=== PATIENT | male | born 1935 | race Caucasian/White ===

== ENCOUNTER 2023-07-25 16:30 | Inpatient (IN) | payer MEDICARE, SELFPAY ==
[2023-07-25] VITALS (8 sets, daily range): BP systolic 145–184; BP diastolic 68–98; PULSE 82–102; RESP 16–22; TEMP 36.4–36.8; O2SAT 94–100
--- NOTE | ~2023-07-25 | XR_ITS ---
MODIFIED ESOPHAGRAM HISTORY: Dysphagia. TECHNIQUE: Modified barium esophagram was performed on 07/26/2023. I administered fluoroscopy and perf ormed the exam with speech pathologist. Patient was seated for lateral fluoroscopic imaging for davie stion of thin liquids, pudding, solids and quantified amounts, followed by thin liquids in uncontroll ed amounts. This was recorded on tape. 2 fluoroscopic images were also recorded. The DAP for this pro cedure was 2.832 Gycm2. The amount of fluoroscopy time used during this procedure was 2.0 minutes. FINDINGS: Oral stage: Reduced labial seal/attention. Poor posterior transit with significantly delayed triggeri ng of the swallow. Pharyngeal stage: Small amount of vallecular residue. No laryngeal penetration or aspiration. Cervical/esophageal stage: Adequate function. IMPRESSION: Oral dysphagia with poor posterior transit with significantly delayed triggering of the s wallow. Please correlate with speech pathologist findings and specific feeding recommendations. Reviewed, dictated and finalized at location A. H PRESS OPERATOR IMPRESSION: Oral dysphagia with poor posterior transit with significantly delay ed triggering of the swallow. Please correlate with speech pathologist finding s and specific feeding recommendations.
--- NOTE | ~2023-07-25 | CT_ITS ---
EXAMINATION: CT abdomen pelvis wo con DATE: 07/25/2023 21:23 INDICATION: Hematuria. TECHNIQUE: Computed tomography (CT) of the abdomen and pelvis was performed without intravenous contr ast. Automated exposure control and iterative reconstruction technique were employed. The dose-length product was 627.03 mGy-cm. COMPARISON: None. FINDINGS: The visualized portions of the lung bases demonstrate mild atelectasis. Calcified right adi g nodules and calcified right hilar lymph nodes are consistent with old adenomatous disease. No pleur al effusion. The heart size is normal. There are coronary artery calcifications. No pericardial effus ion. The liver is normal. There are gallstones in the gallbladder, which is normal in size. The splee n, pancreas, adrenal glands, and kidneys are normal. There is no urolithiasis. The prostate is severe ly enlarged. There is diverticulosis of the colon without evidence of diverticulitis. There are no di lated loops of bowel. The appendix is not visualized. Aortic atherosclerosis is noted. There are no p athologically enlarged lymph nodes. There is no free intraperitoneal fluid. There is severe thoracic and lumbar spondylosis. IMPRESSION: 1. No urolithiasis. Reviewed, dictated and finalized at location E. OMER SERVICE TECHNICIAN IMPRESSION: 1. No urolithiasis.
--- NOTE | ~2023-07-25 | CT_ITS ---
EXAMINATION: CT brain wo con DATE: 07/25/2023 19:02 INDICATION: Altered mental status. TECHNIQUE: Computed tomography (CT) of the head was performed without intravenous contrast. The mA wa s adjusted according to patient size. Iterative reconstruction technique was employed. The dose-lengt h product was 605.33 mGy-cm. COMPARISON: None FINDINGS: There is diffuse brain volume loss. There is no intracranial hemorrhage, acute infarction, or abnormal intracranial mass lesion. There are scattered areas of low attenuation in the cerebral wh ite matter. The ventricles are normal in size. There are likely changes of ocular lens replacement schneider rgeries. Partially visualized is near complete opacification of the right frontal, ethmoid, and sphen oid sinuses with sclerosis of the sinus edmondson, consistent with chronic sinusitis. There is mild mucos al thickening in right sphenoid sinus. The mastoid air cells are normal. IMPRESSION: 1. Moderate nonspecific cerebral white matter disease, which likely represents chronic small vessel i schemic disease. 2. Chronic sinusitis. Reviewed, dictated and finalized at location E. R IMPRESSION: 1. Moderate nonspecific cerebral white matter disease, which likely represents chronic small vessel ischemic disease. 2. Chronic sinusitis.
--- NOTE | ~2023-07-25 | MR_ITS ---
EXAMINATION: MR brain/brain stem wo/w con DATE: 07/26/2023 09:10 INDICATION: Altered mental status. Difficulty swallowing, speaking and walking. TECHNIQUE: Magnetic resonance imaging (MRI) of the brain and brainstem was performed without and with 15 mL Multihance intravenous contrast. Sequences included sagittal and axial T1-weighted SE, axial d iffusion-weighted FS SE, axial T2*-weighted GRE, axial T2-weighted FLAIR, and axial T2-weighted FSE. Postcontrast axial and coronal T1-weighted SE was obtained. Apparent diffusion coefficient (ADC) maps were created. COMPARISON: Head CT dated 07/25/2023 FINDINGS: There are no areas of restricted diffusion to suggest acute infarction. No intracranial hemorrhage or abnormal intracranial mass lesion. There are scattered areas of nonspecific increased T2-weighted si gnal intensity in the cerebral white matter, predominantly involving the deep and periventricular whi te matter. There are no intraparenchymal signal abnormalities seen on the other pulse sequences. Symm etric prominence of the sulci and ventricles consistent with moderate age-appropriate diffuse cerebra l volume loss. There are no abnormal extra-axial fluid collections. Flow voids are seen in the cerebr al arteries on the T2-weighted sequences consistent with their expected patency. Again seen is near c omplete filling of the right frontal, ethmoid and maxillary sinuses with thickening of the sinus wall but are evident on prior CT consistent with chronic sinusitis. Mild mucosal thickening in the right sphenoid and left ethmoid sinuses. There are no areas of abnormal enhancement on the post contrast im ages. IMPRESSION: 1. No acute intracranial process. 2. Age-related changes including moderate diffuse volume loss and moderate scattered nonspecific whit e matter T2 hyperintensity which is within normal limits for age and likely sequela of chronic small vessel ischemic disease. 3. Chronic sinusitis. Reviewed, dictated and finalized at location A. FRAME RUNNER IMPRESSION: 1. No acute intracranial process. 2. Age-related changes including moderate diffuse volume loss and moderate scat tered nonspecific white matter T2 hyperintensity which is within normal limits for age and likely sequela of chronic small vessel ischemic disease. 3. Chronic sinusitis.
--- NOTE | ~2023-07-25 | XR_ITS ---
EXAMINATION: XR chest 1V portable DATE: 07/25/2023 18:51 INDICATION: Choking on food. TECHNIQUE: A single frontal view of the chest was obtained. COMPARISON: None. FINDINGS: Calcified right lung nodules and calcified right hilar lymph nodes are consistent with old granulomatous disease. There is mild atelectasis at left lung base. No pleural effusion or pneumothor ax. Cardiomegaly is noted. IMPRESSION: 1. Mild atelectasis at left lung base. 2. Cardiomegaly. Reviewed, dictated and finalized at location E. ISH FILTERER
[2023-07-25 20:10] LABS: Basophils Absolute Auto 0.1 K/mm3 (0.0-0.1); Basophils Percent Auto 0.5 % (0.2-1.2); Eosinophils Absolute Auto 0.1 K/mm3 (0-0.3); Eosinophils Percent Auto 0.6 % (0-4.4); Hematocrit 42.2 % (42.0-52.0); Hemoglobin 13.6 g/dL (14.0-18.0); Immature Granulocyte Absolute 0.04 K/mm3 (0.00-0.031); Immature Granulocyte Percent A 0.4 % (0-0.5); Lymphocytes Absolute Auto 2.14 K/mm3 (0.9-3.2); Lymphocytes Percent Auto 19.9 % (18.3-44.2); Mean Corpuscular HGB Conc 32.2 g/dl (32-36); Mean Corpuscular Hemoglobin 31.3 pg (26-34); Mean Corpuscular Volume 97.2 fl (80-100); Mean Platelet Volume 10.9 fl (7.4-10.4); Monocytes Absolute Auto 1.3 K/mm3 (0.1-0.6); Monocytes Percent Auto 11.9 % (2.6-8.5); Neutrophils Absolute Auto 7.2 K/mm3 (1.3-6.7); Neutrophils Percent Auto 66.7 % (45.5-73.1); Platelet Count Result 256 k/mm3 (150-375); Red Blood Count 4.34 M/mm3 (4.6-6.20); Red Cell Distribution Width 12.1 % (11.5-14.5); White Blood Count 10.7 K/mm3 (4.5-10.0)
[2023-07-25 20:14] LABS: Appearance Urine Clear (Clear); Bacteria Urine None Seen /hpf; Bilirubin Urine Negative (Negative); Blood Urine 3+ (Negative); Color Urine Yellow (Yellow); Glucose Urine UA Negative (Negative); Ketones Urine Trace mg/dL (Negative); Leukocyte Esterase Ur Trace LEU/UL (Negative); Nitrate Urine Negative (Negative); Non Pathogenic Casts 0-2; Protein Urine Trace mg/dL (Negative); RBC Urine >100 /hpf (0-2); Specific Grav Ur 1.021 (1.001-1.035); Squamous Epithelial Cell Urine None seen /hpf (Few); WBC Urine 0-5 /hpf; pH Urine 5.5 (5.0-9.0)
--- NOTE | 2023-07-25 20:15 | ED.GENADULT ---
HPI - General Adult General Chief complaint: Unspecified Stated complaint: requesting gtube Time Seen by Provider: 07/25/23 17:39 Source: family Mode of arrival: ambulatory Limitations: clinical condition and dementia History of Present Illness HPI narrative: Patient is an 88-year-old male, with past medical history of dementia who presents to the ED with altered mental status, decreased p.o. intake. at bedside assisted in providing information. reports patient has history of dementia and is alert & oriented X 1-2 at baseline. since last week, patient has had a sharp decline in his physical and mental state. She states he has not been able to eat, walk, speak since last week. He was evaluated at [facility] and admitted for several days, though no etiology was found for his acute altered state. He was discharged from [place] to a assisted where he has been residing and undergoing physical therapy since then. They switched his diet to pureed diet. Today, reports patient was being fed by 1 of the assisted staff and had an episode of choking. He was then sent here for evaluation of aspiration pneumonia. It was advised by the physical therapist that patient may need a G-tube for further nutrition. Patient unable to provide any information. Related Data Allergies Allergy/AdvReac Type Severity Reaction Status Date / Time No Known Allergies Allergy Verified 07/25/23 16:21 Review of Systems Review of Systems: ROS unobtainable: Yes unobtainable due to medical condition and unobtainable due to mental status Exam Narrative: GENERAL: Elderly, chronically ill-appearing, non-toxic, in no acute distress. HEAD: Normocephalic, atraumatic. ENT: MMs and tongue very dry. Poor dentition RESPIRATORY: Airway patent, respirations borderline tachypneic. Clear to auscultation bilaterally, no rales, rhonchi, wheezing. no significant focal lung sounds. CARDIOVASCULAR: Borderline tachycardic with regular rhythm without murmurs, rubs, or gallops. ABDOMINAL: Soft, no appreciable tenderness throughout abdomen. Normoactive BS. MUSCULOSKELETAL: No gross deformities. Generalized weakness. Able to lift both arms with assistance. Unable to follow commands to lift legs. SKIN: Warm, dry, normal color. NEURO: Alert, appears to be listening to conversation but Nonverbal, does not provide any information or answer any questions. Does not follow commands. Stares around the room. Speech garbled, no useful communication. No ataxic movements. PSYCHIATRIC: No purposeful interaction. Course Vital Signs Vital signs: Vital Signs Temperature 97.6 F 07/25/23 16:15 Pulse Rate 100 07/25/23 16:15 Respiratory Rate 19 07/25/23 16:15 Blood Pressure 169/87 H 07/25/23 16:15 Pulse Oximetry 95 07/25/23 16:15 Oxygen Delivery Room Air 07/25/23 16:15 Temperature 97.6 F 07/26/23 00:07 Pulse Rate 84 07/26/23 00:07 Respiratory Rate 20 07/26/23 00:07 Blood Pressure 174/84 H 07/26/23 00:07 Pulse Oximetry 99 07/26/23 00:07 Oxygen Delivery Room Air 07/25/23 16:15 Medical Decision Making MDM Narrative Medical decision making narrative: Patient presented to ED with altered mental status, concern for choking episode assisted today, history of dementia, reporting sharp decline in condition over the last 1 week. Patient's vitals stable upon arrival. Patient unable to provide any information or voice any concerns. CT brain was obtained and showing age-related chronic small-vessel ischemic disease, no acute findings. Chest x-ray with atelectasis to the left lung base, cardiomegaly, no other acute focal consolidation noted. CBC with leukocytosis of 10.7. CMP unremarkable. Stable electrolytes, stable kidney function. Normal LFTs. Lactic acid within normal limits at 1.4. Urine obtained via straight catheterization did reveal a large blood clot. After blood clot was evacuated, uri
[2023-07-25 20:20] LABS: Add Urine Microscopic? YES; Alanine Aminotransferase 28 U/L (6-50); Albumin Level 3.6 g/dL (3.5-5.1); Alkaline Phosphatase 65 U/L (38-126); Anion Gap 8 mmol/L (8-16); Aspartate Amino Transferase 31 U/L (17-59); Bilirubin,Total 0.8 mg/dL (0.2-1.3); Blood Urea Nitrogen 33 mg/dL (9-20); Calcium 10.2 mg/dL (8.4-10.2); Carbon Dioxide 29 mmol/L (22-30); Chloride 103 mmol/L (98-107); Estimated CRCL calculation 46 ml/min; Estimated Glomerular Filt Rate > 60; Glucose 117 mg/dL (65-110); Magnesium 2.1 mg/dL (1.6-2.3); Potassium 3.6 mmol/L (3.4-5.0); Sodium 140 mmol/L (137-145)
[2023-07-25 20:21] LABS: Lactic Acid Reflex 1.4 mmol/L (0.7-2.0)
[2023-07-25] MEDS: SODIUM CHLORIDE 0.9% IV 1,000 ML 999 ML IV CONT (20:49)
--- NOTE | 2023-07-25 20:51 | ECG_ITS ---
Measurements Intervals [place] Rate: 102 P: TX: 0 QRS: -29 QRSD: 101 T: 22 QT: 354 QTc: 462 Interpretive Statements SINUS TACHYCARDIA ATRIAL AND VENTRICULAR PREMATURE COMPLEXES CONSIDER INFERIOR INFARCT, AGE INDETERMINATE BORDERLINE ST-T WAVE ABNORMALITY- ANTEROLAT/HIGH LAT LEADS BASELINE ARTIFACT- I, II, III, AVR, AVL, AVF, V1-V6 ABNORMAL ECG NO PREVIOUS ECG AVAILABLE FOR COMPARISON Electronically Signed On 07-26-2023 6:43:38 BARK PEELER by Lawrence Adam D.O.
[2023-07-25 21:27] LABS: Procalcitonin 0.1 ng/mL
[2023-07-25 21:36] LABS: Influenza A QL RT-PCR Negative (Negative); Influenza B QL RT-PCR Negative (Negative); RSV RNA, RT-PCR Negative (Negative); SARS-CoV-2 RNA PCR Negative (Negative)
[2023-07-25 21:41] LABS: Thyroid Stimulating Hormone 0.689 uIU/mL (0.465-4.680)
[2023-07-26] VITALS (8 sets, daily range): BP systolic 168–177; BP diastolic 71–94; PULSE 80–111; RESP 18–20; TEMP 36.2–37; O2SAT 90–99; BMI 32.2; BMI 33.0
--- NOTE | 2023-07-26 00:23 | ADMGEN ---
This patient, Anton Fortune, was admitted to Medical Room 244-. Patient/family oriented to hospital policies and general routines including ID bracelet, bed and alarms, visiting hours, pain management, procedures, bathroom and other care routines, personal items, smoking policy, room service/diet, and visiting hours. Information on how to activate the Rapid Response Team has been discussed. Patient/Family are encouraged to report perceived risks to care and to ask questions if they do not understand what they are told or what they should do.
--- NOTE | 2023-07-26 02:48 | PM.IMHP ---
H&P: HPI History of Present Illness Date/Time: 07/26/23 02:00 Chief Complaint: Not eating or drinking Narrative: 88-year-old male with a past medical history of dementia, glaucoma, essential hypertension BPH and GERD who presented to the ER with altered mental status and decreased oral intake. Source of information comes from ER physician report, ER records and external medication reconciliation. The family members are not at bedside in the patient is never been at our facility previously. The patient evidently has a long history of dementia but is usually able to ambulate around the house and is able to recognize left once. However last week the patient had a sharp decline in mental status and has not been able to eat walk or speak since that time. He was hospitalized at [facility] and no etiology was found for his altered mental status. However they did not do an MRI at that facility. He was subsequently discharged to snf facility reportedly for rehab. At rehab patient was again unable to eat and was placed on a pureed diet. Rehab facility thought the patient may have aspirated because he had an episode of choking with eating. He was sent to the ER for evaluation for possible pneumonia. The therapist at the nursing facility suggest patient may need a G-tube. Family still desires patient to be a full code. In the ER patient only had a small amount of urine output. He received 1 L of IV fluids. His labs were relatively unremarkable except for a BUN of 33 and trace ketones in his urine. His urine also appeared bloody during straight catheterization. CT head performed in the ER demonstrated the age-related small-vessel ischemic disease without acute findings. Chest x-ray and remainder of labs were personally reviewed and were unremarkable. Bladder scan was performed at bedside and patient only had 75 mL in his bladder. According to documentation the family did not make mention of patient having any fevers or chills at home. Review of Systems Review of Systems: ROS unobtainable: Yes unobtainable due to mental status PMFSH Past Medical History Medical History (Updated 07/26/23 @ 03:13 by Anh Rodriguez DO) Age-related macular degeneration, wet, left eye BPH (benign prostatic hyperplasia) Dementia Essential hypertension Glaucoma Hyperlipidemia Surgical History Surgical History (Updated 07/26/23 @ 02:59 by Anh Rodriguez DO) Status post cataract extraction of both eyes with insertion of intraocular lens Family History Family History Sibling Acute myocardial infarction Cerebrovascular accident Chronic obstructive pulmonary disease Mother Hypertension Acute myocardial infarction Social History Social History (Updated 07/26/23 @ 03:00 by Anh Rodriguez DO) Social History: The patient lives at home with his until recent hospitalization at [facility] early July 2023. Code status: Full code Surrogate decision maker: Smoking status: Never smoker Alcohol intake: never Substance use: never Do You Feel Safe in your Home?: Yes Lack of Transportation: No Lack of Food: Never True Current Housing: I Have Housing Concerned About Future Housing: No Difficulty Paying Gas/Electric Bills: No Difficulty Paying for Meds: No Currently Unemployed: No Education: Bachelor's Degree Difficulty w/ Childcare or Family Care: No Spiritual care concerns: No Meds Home Medications and Allergies Home Medications Medication Instructions Recorded Confirmed Type PreserVision AREDS-2 1 cap PO DAILY 07/26/23 07/26/23 History aspirin 81 mg tablet,delayed 81 mg PO DAILY 07/26/23 07/26/23 History release atorvastatin 20 mg tablet 20 mg PO DAILY 07/26/23 07/26/23 History brimonidine 0.2 %-timolol 0.5 % 1 drp ophthalmic (eye) HS 07/26/23 07/26/23 History eye drops buspirone 5 mg tablet 2
[2023-07-26] MEDS: SODIUM CHLORIDE 0.9% IV 1,000 ML 999 ML IV CONT (03:11)
[2023-07-26] MEDS: SODIUM CHLORIDE 0.9% IV 1,000 ML 125 ML IV CONT ×2 (03:11→23:00)
[2023-07-26] MEDS: METOPROLOL TARTRATE INJ 5 MG/5 ML VIAL IV PUSH ×2 (04:24→21:13)
--- NOTE | 2023-07-26 09:03 | PCSTNOTE ---
Please refer to the Modified Barium Swallow Evaluation in the EMR.
--- NOTE | 2023-07-26 11:42 | PM.IMPN ---
Progress Note: A&P Assessment and Plan (1) Altered mental status: Qualifiers: Altered mental status type: unspecified Qualified Code(s): R41.82 - Altered mental status, unspecified Code(s): R41.82 - Altered mental status, unspecified Status: Acute Assessment and Plan: MRI negative, suspect worsening Alzheimer's dementia (2) Dysphagia: Qualifiers: Dysphagia type: unspecified Qualified Code(s): R13.10 - Dysphagia, unspecified Code(s): R13.10 - Dysphagia, unspecified Status: Acute Assessment and Plan: Likely late phase dementia, family wants PEG tube, GI has been consulted and will insert tomorrow (3) Aphasia: Code(s): R47.01 - Aphasia Status: Acute Assessment and Plan: Patient not totally aphasic for me as he would answer occasional questions but was very garbled and difficult to understand, did not seem to be oriented (4) Weakness: Code(s): R53.1 - Weakness Status: Acute Assessment and Plan: Likely due to decreased nutrition and advancing dementia (5) Vascular dementia: Qualifiers: Dementia severity: severe Dementia behavioral or psychological symptom: unspecified whether behavioral, psychotic, or mood disturbance or anxiety Qualified Code(s): F01.C0 - Vascular dementia, severe, without behavioral disturbance, psychotic disturbance, mood disturbance, and anxiety Code(s): F01.50 - Vascular dementia, unspecified severity, without behavioral disturbance, psychotic disturbance, mood disturbance, and anxiety Status: Acute Assessment and Plan: Chronic small-vessel disease with volume loss noted on CT and MRI Plan PEG tube placement tomorrow by GI, consult dietitian Time Spent With Patient Time with patient: 25 - 35 minutes Subjective Date/time seen: 07/26/23 11:42 Interval history: This is an 88-year-old male patient with vascular dementia admitted for inability to eat and drink and altered mental status. Patient had been living at home until just about a week ago when he was admitted to [place] for altered LOC. No MRI was done at that time. He was transferred to SNF and was sent from there to our hospital for further evaluation. MRI done this morning shows chronic vascular changes and volume depletion. Attempted modify barium swallow and patient was able to swallow liquids without penetration but he did not swallow food that was placed in his mouth. Family wants PEG tube insertion and to return to [facility]. Review of Systems Review of Systems: ROS unobtainable: Yes unobtainable due to mental status Exam Narrative: GENERAL: Altered level of consciousness, awake but mumbling and confused HEAD: Normocephalic, atraumatic. ENT:? Mucous membranes dry. Debris from swallow study in mouth, poor dentition CHEST: Clear to auscultation.? No respiratory distress. HEART: Regular rate and irregular rhythm. ?Atrial fibrillation noted on telemetry monitoring controlled ventricular rate of 80. normal peripheral pulses. ABDOMEN: Soft, nontender, nondistended. EXTREMITIES: Normal range of motion. No peripheral edema. SKIN: Warm dry normal color NEURO: Altered LOC consistent with advanced dementia, moving all extremities PSYCH: Unable to assess Objective Data Vital Signs Vital Signs: Vital Signs - 24 hr 07/25/23 16:15 07/25/23 17:01 07/25/23 18:23 Temperature 36.4 C Pulse Rate 100 102 H Respiratory Rate 19 19 19 Blood Pressure 169/87 H 145/98 H Pulse Oximetry 95 96 95 Oxygen Delivery Room Air 07/25/23 19:13 07/25/23 19:14 07/25/23 21:06 Temperature 36.8 C Pulse Rate 102 H 102 H 95 Respiratory Rate 22 H 20 Blood Pressure 184/91 H 168/68 H Pulse Oximetry 94 99 Oxygen Delivery 07/25/23 23:03 07/25/23 23:47 07/26/23 00:07 Temperature 36.4 C Pulse Rate 98 82 84 Respiratory Rate 17 16 20 Blood Pressure 173/95 H 150/90 H 174/84 H Pu
--- NOTE | 2023-07-26 13:13 | WPDGICN ---
Assessment and Plan Assessment and plan (1) Encephalopathy acute: Code(s): G93.40 - Encephalopathy, unspecified Status: Acute Assessment and Plan: underlying dementia and failure to thrive, family is concerned and was brought to emergency they talked to primary team and I was told that agreeable to have G-tube placement for feeding (2) Vascular dementia: Qualifiers: Dementia severity: severe Dementia behavioral or psychological symptom: unspecified whether behavioral, psychotic, or mood disturbance or anxiety Qualified Code(s): F01.C0 - Vascular dementia, severe, without behavioral disturbance, psychotic disturbance, mood disturbance, and anxiety Code(s): F01.50 - Vascular dementia, unspecified severity, without behavioral disturbance, psychotic disturbance, mood disturbance, and anxiety Status: Acute (3) Dysphagia: Qualifiers: Dysphagia type: unspecified Qualified Code(s): R13.10 - Dysphagia, unspecified Code(s): R13.10 - Dysphagia, unspecified Status: Acute Assessment and Plan: egd with peg placement (4) Aphasia: Code(s): R47.01 - Aphasia Status: Acute (5) Essential hypertension: Code(s): I10 - Essential (primary) hypertension Status: Acute GI Consult Note Consult date/time: 07/26/23 13:13 Reason for consult: dysphagia, confusion/dementia HPI: Anton Fortune is a 88 year old male withl history of dementia, glaucoma, essential hypertension BPH and GERD who presented to the ER with altered mental status and decreased oral intake. I can not get history from him since he has advanced dementia per records.? He was admitted at another facility after noted sharp decline in mental status and has not been able to eat walk or speak since that time. He was subsequently discharged to snf facility reportedly for rehab.? At rehab patient was again unable to eat. MRI brain here with no acute intracranial process. Age-related changes including moderate diffuse volume loss and moderate scattered nonspecific white matter T2 hyperintensity which is within normal limits for age and likely sequela of chronic small vessel ischemic disease. He is AAOx1, he hardly makes sense when he is talking and is confused. Review of Systems Review of Systems: ROS unobtainable: Yes unobtainable due to mental status PMFSH Past Medical History Medical History (Updated 07/26/23 @ 13:18 by Leoncio Pollard MD) Age-related macular degeneration, wet, left eye BPH (benign prostatic hyperplasia) Dementia Encephalopathy acute Essential hypertension Glaucoma Hyperlipidemia Surgical History Surgical History (Updated 07/26/23 @ 02:59 by Anh Rodriguez DO) Status post cataract extraction of both eyes with insertion of intraocular lens Family History Family History Sibling Acute myocardial infarction Cerebrovascular accident Chronic obstructive pulmonary disease Mother Hypertension Acute myocardial infarction Social History Social History (Updated 07/26/23 @ 03:00 by Anh Rodriguez DO) Social History: The patient lives at home with his until recent hospitalization at [facility] early July 2023. Code status: Full code Surrogate decision maker: Smoking status: Never smoker Alcohol intake: never Substance use: never Do You Feel Safe in your Home?: Yes Lack of Transportation: No Lack of Food: Never True Current Housing: I Have Housing Concerned About Future Housing: No Difficulty Paying Gas/Electric Bills: No Difficulty Paying for Meds: No Currently Unemployed: No Education: Bachelor's Degree Difficulty w/ Childcare or Family Care: No Spiritual care concerns: No Meds Home Medications and Allergies Home Medications Medication Instructions Recorded Confirmed Type PreserVision AREDS-2 1 cap PO
--- NOTE | 2023-07-26 14:17 | PCDIET ---
Physican consult for PEG placement. Tube feeding recommendations: Jevity 1.5 at 20 ml/hr advance by 10 ml q 4 hours to goal rate of 55 ml/hr. Tube feedings at goal rate, providing 1815 kcals/82 gms protein/920 ml water. Flush 100 ml q 4 hours. Will continue to monitor.
[2023-07-26] MEDS: TIMOLOL MALEATE 0.5% OP SOLN 5 ML BOTTLE 1 DROP EACH EYE (20:48)
[2023-07-26] MEDS: BRIMONIDINE TARTRATE 0.2% OP SOLN 5 ML BTL 1 DROP EACH EYE (20:49)
[2023-07-27] VITALS (9 sets, daily range): BP systolic 129–187; BP diastolic 58–96; PULSE 72–90; RESP 17–24; TEMP 36.4–37; O2SAT 90–100
[2023-07-27] MEDS: SODIUM CHLORIDE 0.9% IV 1,000 ML 125 ML IV CONT ×2 (05:51→20:15)
[2023-07-27 05:58] LABS: Alanine Aminotransferase 31 U/L (6-50); Albumin Level 3.2 g/dL (3.5-5.1); Alkaline Phosphatase 60 U/L (38-126); Anion Gap 6 mmol/L (8-16); Aspartate Amino Transferase 36 U/L (17-59); Basophils Absolute Auto 0.1 K/mm3 (0.0-0.1); Basophils Percent Auto 0.7 % (0.2-1.2); Bilirubin,Total 0.7 mg/dL (0.2-1.3); Blood Urea Nitrogen 27 mg/dL (9-20); Calcium 9.4 mg/dL (8.4-10.2); Carbon Dioxide 25 mmol/L (22-30); Chloride 110 mmol/L (98-107); Eosinophils Absolute Auto 0.3 K/mm3 (0-0.3); Eosinophils Percent Auto 4.5 % (0-4.4); Estimated CRCL calculation 48 ml/min; Estimated Glomerular Filt Rate > 60; Glucose 96 mg/dL (65-110); Hemoglobin 12.3 g/dL (14.0-18.0); Immature Granulocyte Absolute 0.03 K/mm3 (0.00-0.031); Immature Granulocyte Percent A 0.4 % (0-0.5); Lymphocytes Absolute Auto 1.52 K/mm3 (0.9-3.2); Lymphocytes Percent Auto 20.3 % (18.3-44.2); Mean Corpuscular HGB Conc 31.5 g/dl (32-36); Mean Corpuscular Hemoglobin 31.1 pg (26-34); Mean Corpuscular Volume 98.7 fl (80-100); Mean Platelet Volume 10.8 fl (7.4-10.4); Monocytes Absolute Auto 0.8 K/mm3 (0.1-0.6); Neutrophils Absolute Auto 4.8 K/mm3 (1.3-6.7); Neutrophils Percent Auto 64.1 % (45.5-73.1); Platelet Count Result 229 k/mm3 (150-375); Potassium 3.9 mmol/L (3.4-5.0); Red Blood Count 3.95 M/mm3 (4.6-6.20); Red Cell Distribution Width 11.9 % (11.5-14.5); Sodium 141 mmol/L (137-145); White Blood Count 7.5 K/mm3 (4.5-10.0)
--- NOTE | 2023-07-27 07:59 | P.CDI_ITS ---
CDI Query Clarification Request BMI 33.0 Nutritional Diagnostic Statement Severe protein calorie malnutrition as related to inadequate protein energy intake in setting of dysphagia as evidenced by <50% of estimated energy needs for greater than or equal to 5 days and significant weight loss of 14 lbs (7%) in 7 days. Please refer to the comprehensive nutrition assessment for further information. Please clarify severity of protein calorie malnutrition if known: * Mild * Moderate * Severe * Other/Unspecified <Tammy Rodriguez RN - Last Filed: 07/27/23 08:04> Clarified Diagnosis Clarified Diagnosis: Severe protein calorie malnutrition as related to inadequate protein energy intake in setting of dysphagia as evidenced by <50% of estimated energy needs for greater than or equal to 5 days and significant weight loss of 14 lbs (7%) in 7 days. <Moises Munroe APRN - Last Filed: 07/27/23 12:39>
--- NOTE | 2023-07-27 08:17 | PM.IMPN ---
Progress Note: A&P Assessment and Plan (1) Altered mental status: Qualifiers: Altered mental status type: unspecified Qualified Code(s): R41.82 - Altered mental status, unspecified Code(s): R41.82 - Altered mental status, unspecified Status: Acute Assessment and Plan: MRI negative, suspect worsening Alzheimer's dementia (2) Dysphagia: Qualifiers: Dysphagia type: unspecified Qualified Code(s): R13.10 - Dysphagia, unspecified Code(s): R13.10 - Dysphagia, unspecified Status: Acute Assessment and Plan: Likely late phase dementia, family wants PEG tube, GI has been consulted and will insert tomorrow (3) Aphasia: Code(s): R47.01 - Aphasia Status: Acute Assessment and Plan: Patient not totally aphasic for me as he would answer occasional questions but was very garbled and difficult to understand, did not seem to be oriented (4) Weakness: Code(s): R53.1 - Weakness Status: Acute Assessment and Plan: Likely due to decreased nutrition and advancing dementia (5) Vascular dementia: Qualifiers: Dementia severity: severe Dementia behavioral or psychological symptom: unspecified whether behavioral, psychotic, or mood disturbance or anxiety Qualified Code(s): F01.C0 - Vascular dementia, severe, without behavioral disturbance, psychotic disturbance, mood disturbance, and anxiety Code(s): F01.50 - Vascular dementia, unspecified severity, without behavioral disturbance, psychotic disturbance, mood disturbance, and anxiety Status: Acute Assessment and Plan: Chronic small-vessel disease with volume loss noted on CT and MRI (6) Severe protein-calorie malnutrition: Code(s): E43 - Unspecified severe protein-calorie malnutrition Status: Acute Assessment and Plan: Severe protein calorie malnutrition as related to inadequate protein energy intake in setting of dysphagia as evidenced by <50% of estimated energy needs for greater than or equal to 5 days and significant weight loss of 14 lbs (7%) in 7 days. Plan PEG tube placement today Follow recreation engineer plan for tube feeds Time Spent With Patient Time with patient: 25 - 35 minutes Subjective Date/time seen: 07/27/23 08:17 Interval history: 07/26: This is an 88-year-old male patient with vascular dementia admitted for inability to eat and drink and altered mental status. Patient had been living at home until just about a week ago when he was admitted to [facility] for altered LOC. No MRI was done at that time. He was transferred to SNF and was sent from there to our hospital for further evaluation. MRI done this morning shows chronic vascular changes and volume depletion. Attempted modify barium swallow and patient was able to swallow liquids without penetration but he did not swallow food that was placed in his mouth. Family wants PEG tube insertion and to return to [facility]. 07/27: No change in mental status. No acute events overnight. IV fluid rate decreased to 75 mL/hr to prevent fluid overload. Patient going down for PEG tube placement today. Once cleared to use PEG to we will start tube feeds as recommended by dietitian. Once at goal we will stop IV fluids. Review of Systems Review of Systems: ROS unobtainable: Yes unobtainable due to mental status Exam Narrative: GENERAL: Altered level of consciousness, awake but mumbling and confused HEAD: Normocephalic, atraumatic. ENT:? Mucous membranes dry. Debris from swallow study in mouth, poor dentition CHEST: Clear to auscultation.? No respiratory distress. HEART: Regular rate and irregular rhythm. ?Atrial fibrillation noted on telemetry monitoring controlled ventricular rate of 80. normal peripheral pulses. ABDOMEN: Soft, nontender, nondistended. EXTREMITIES: Normal range of motion. No peripheral edema. SKIN: Warm dry normal color NEURO: Altered LOC consistent
--- NOTE | 2023-07-27 09:20 | PC.NURSE ---
pt to GI lab via tracey
[2023-07-27] MEDS: LACTATED RINGERS 1,000 ML 150 ML IV CONT (09:38)
[2023-07-27] MEDS: ceFAZolin 1 GM/NS 50 ML 1 GM/50 ML BAG IVPB (09:39)
--- NOTE | 2023-07-27 10:07 | WPDANESEPPF ---
Anes - Initial Pre Proc Eval Procedure: Operation Date: 07/27/23 13:00 Proposed Procedures p Esophagogastroduodenoscopy - Leoncio Pollard MD s Percutaneous Endoscopic Gastrostomy - Leoncio Pollard MD Date/Time: 07/27/23 10:07 Surgeon: Anh Rodriguez DO Pre Op Diagnosis: AMS, Dementia, Difficulty with PO Intake Patient Data Age: 88 Gender: M Height: 1.57 m Weight: 83.6 kg Last Vital Signs Temp 97.9 F 07/27/23 09:36 Pulse 77 07/27/23 09:36 Resp 20 07/27/23 09:36 BP 161/74 H 07/27/23 09:36 Pulse Ox 96 07/27/23 09:36 O2 Del Method Room Air 07/27/23 09:36 Allergies Allergy/AdvReac Type Severity Reaction Status Date / Time No Known Allergies Allergy Verified 07/27/23 09:35 Home Medications Medication Instructions Recorded Confirmed Type PreserVision AREDS-2 1 cap PO DAILY 07/26/23 07/26/23 History aspirin 81 mg tablet,delayed 81 mg PO DAILY 07/26/23 07/26/23 History release atorvastatin 20 mg tablet 20 mg PO DAILY 07/26/23 07/26/23 History brimonidine 0.2 %-timolol 0.5 % 1 drp ophthalmic (eye) HS 07/26/23 07/26/23 History eye drops buspirone 5 mg tablet 2.5 mg PO BID 07/26/23 07/26/23 History chlorthalidone 25 mg tablet 25 mg PO DAILY 07/26/23 07/26/23 History famotidine 10 mg tablet 10 mg PO DAILY 07/26/23 07/26/23 History lycopene 10 mg capsule 10 mg PO DAILY 07/26/23 07/26/23 History metoprolol succinate 50 mg 50 mg PO DAILY 07/26/23 07/26/23 History tablet,extended release 24 hr potassium chloride 20 mEq 20 meq PO DAILY 07/26/23 07/26/23 History tablet,extended release(part/cryst) (Klor-Con M) quetiapine 25 mg tablet 25 mg PO HS PRN Sleep 07/26/23 07/26/23 History tamsulosin 0.4 mg capsule 0.4 mg PO DAILY 07/26/23 07/26/23 History Laboratory Tests 07/27/23 05:19 WBC 7.5 K/mm3 (4.5-10.0) RBC 3.95 L M/mm3 (4.6-6.20) Hgb 12.3 L g/dL (14.0-18.0) Hct 39.0 L % (42.0-52.0) MCV 98.7 fl (80-100) MCH 31.1 pg (26-34) MCHC 31.5 L g/dl (32-36) RDW 11.9 % (11.5-14.5) Plt Count 229 k/mm3 (150-375) MPV 10.8 H fl (7.4-10.4) Immature Gran % (Auto) 0.4 % (0-0.5) Neut % (Auto) 64.1 % (45.5-73.1) Lymph % (Auto) 20.3 % (18.3-44.2) Faulkner % (Auto) 10.0 H % (2.6-8.5) Eos % (Auto) 4.5 H % (0-4.4) Baso % (Auto) 0.7 % (0.2-1.2) Lymph # (Auto) 1.52 K/mm3 (0.9-3.2) Faulkner # (Auto) 0.8 H K/mm3 (0.1-0.6) Eos # (Auto) 0.3 K/mm3 (0-0.3) Baso # (Auto) 0.1 K/mm3 (0.0-0.1) Abs Immat Gran (auto) 0.03 K/mm3 (0.00-0.031) Absolute Neuts (auto) 4.8 K/mm3 (1.3-6.7) Absolute Nucleated RBC 0.0 K/mm3 (0.0-0.012) Nucleated RBC % 0.0 % (0.0-0.2) Sodium 141 mmol/L (137-145) Potassium 3.9 mmol/L (3.4-5.0) Chloride 110 H mmol/L (98-107) Carbon Dioxide 25 mmol/L (22-30) Anion Gap 6 L mmol/L (8-16) BUN 27 H mg/dL (9-20) Creatinine 0.90 mg/dL (0.7-1.3) Estim Creat Clear Calc 48 ml/min Estimated GFR > 60 (59 - ) Glucose 96 mg/dL (65-110) Calcium 9.4 mg/dL (8.4-10.2) Magnesium 2.0 mg/dL (1.6-2.3) Total Bilirubin 0.7 mg/dL (0.2-1.3) AST 36 U/L (17-59) ALT 31 U/L (6-50) Alkaline Phosphatase 60 U/L (38-126) Total Protein 6.0 L g/dL (6.3-8.2) Albumin 3.2 L g/dL (3.5-5.1) Patient hx anesthesia problems: none Family hx anesthesia problems: none Results Review: All pre-operative results and documents have been reviewed as part of the pre-operative evaluation. [facility] Past Medical History Medical History (Updated 07/26/23 @ 13:18 by Leoncio Pollard MD) Age-related macular degeneration, wet, left eye BPH (benign prostatic hyperplasia) Dementia Encephalopathy acute Essential hypertension Glaucoma Hyperlipidemia Surgical History Surgical History (Updated 07/26/23 @ 02:59 by Anh Rodriguez DO) Status post ca
[2023-07-27] MEDS: METOPROLOL TARTRATE INJ 5 MG/5 ML VIAL IV PUSH (20:08)
[2023-07-27] MEDS: TIMOLOL MALEATE 0.5% OP SOLN 5 ML BOTTLE 1 DROP EACH EYE (20:09)
[2023-07-27] MEDS: BRIMONIDINE TARTRATE 0.2% OP SOLN 5 ML BTL 1 DROP EACH EYE (20:09)
[2023-07-28 05:56] VITALS: BP 130/70; PULSE 64; RESP 17; TEMP 36.8; O2SAT 97
[2023-07-28 06:18] LABS: Basophils Percent Auto 0.4 % (0.2-1.2); Eosinophils Absolute Auto 0.3 K/mm3 (0-0.3); Eosinophils Percent Auto 4.2 % (0-4.4); Hematocrit 36.1 % (42.0-52.0); Immature Granulocyte Absolute 0.03 K/mm3 (0.00-0.031); Immature Granulocyte Percent A 0.4 % (0-0.5); Lymphocytes Absolute Auto 1.62 K/mm3 (0.9-3.2); Lymphocytes Percent Auto 19.9 % (18.3-44.2); Mean Corpuscular HGB Conc 33.2 g/dl (32-36); Mean Corpuscular Hemoglobin 31.6 pg (26-34); Mean Platelet Volume 10.3 fl (7.4-10.4); Monocytes Absolute Auto 0.9 K/mm3 (0.1-0.6); Monocytes Percent Auto 11.6 % (2.6-8.5); Neutrophils Absolute Auto 5.2 K/mm3 (1.3-6.7); Neutrophils Percent Auto 63.5 % (45.5-73.1); Platelet Count Result 239 k/mm3 (150-375); Red Cell Distribution Width 11.9 % (11.5-14.5); White Blood Count 8.1 K/mm3 (4.5-10.0)
[2023-07-28 07:13] LABS: Alanine Aminotransferase 24 U/L (6-50); Albumin Level 2.8 g/dL (3.5-5.1); Alkaline Phosphatase 65 U/L (38-126); Anion Gap 3 mmol/L (8-16); Aspartate Amino Transferase 26 U/L (17-59); Bilirubin,Total 0.5 mg/dL (0.2-1.3); Blood Urea Nitrogen 26 mg/dL (9-20); Calcium 9.3 mg/dL (8.4-10.2); Carbon Dioxide 29 mmol/L (22-30); Chloride 107 mmol/L (98-107); Estimated CRCL calculation 48 ml/min; Estimated Glomerular Filt Rate > 60; Glucose 125 mg/dL (65-110); Potassium 3.5 mmol/L (3.4-5.0); Sodium 139 mmol/L (137-145)
[2023-07-28] MEDS: PANTOPRAZOLE SODIUM IV 40 MG VIAL IV PUSH (08:46)
--- NOTE | 2023-07-28 11:35 | PM.DS ---
DS: Admitting Diagnosis Discharge Date 07/28/2023 Admitting Diagnosis AMS/Dysphagia DS: Discharge Diagnosis Discharge Diagnosis (1) Altered mental status: Qualifiers: Altered mental status type: unspecified Qualified Code(s): R41.82 - Altered mental status, unspecified Code(s): R41.82 - Altered mental status, unspecified Status: Acute Assessment and Plan: MRI negative, suspect worsening Alzheimer's dementia (2) Dysphagia: Qualifiers: Dysphagia type: unspecified Qualified Code(s): R13.10 - Dysphagia, unspecified Code(s): R13.10 - Dysphagia, unspecified Status: Acute Assessment and Plan: Likely late phase dementia, family wants PEG tube, GI has been consulted and will insert tomorrow (3) Aphasia: Code(s): R47.01 - Aphasia Status: Acute Assessment and Plan: Patient not totally aphasic for me as he would answer occasional questions but was very garbled and difficult to understand, did not seem to be oriented (4) Weakness: Code(s): R53.1 - Weakness Status: Acute Assessment and Plan: Likely due to decreased nutrition and advancing dementia (5) Vascular dementia: Qualifiers: Dementia severity: severe Dementia behavioral or psychological symptom: unspecified whether behavioral, psychotic, or mood disturbance or anxiety Qualified Code(s): F01.C0 - Vascular dementia, severe, without behavioral disturbance, psychotic disturbance, mood disturbance, and anxiety Code(s): F01.50 - Vascular dementia, unspecified severity, without behavioral disturbance, psychotic disturbance, mood disturbance, and anxiety Status: Acute Assessment and Plan: Chronic small-vessel disease with volume loss noted on CT and MRI (6) Severe protein-calorie malnutrition: Code(s): E43 - Unspecified severe protein-calorie malnutrition Status: Acute Assessment and Plan: Severe protein calorie malnutrition as related to inadequate protein energy intake in setting of dysphagia as evidenced by <50% of estimated energy needs for greater than or equal to 5 days and significant weight loss of 14 lbs (7%) in 7 days. Plan Dysphagia -peg tube with tube feedings -aspiration precautions -monitor residuals -Follow-up BMP NA levels adjust tube feed flushes as needed -Peg Tube care DS: Summary Hospital Course Reason for hospitalization: AMS/Dysphagia Hospital Course: 88-year-old male who has a past medical history of dementia, glaucoma, essential hypertension BPH and GERD who presented to the ER with altered mental status and decreased oral intake.? Source of information comes from ER physician report, ER records and external medication reconciliation.? The family members are not at bedside in the patient is never been at our facility previously.? The patient evidently has a long history of dementia but is usually able to ambulate around the house and is able to recognize left once.? However last week the patient had a sharp decline in mental status and has not been able to eat walk or speak since that time.? He was hospitalized at [facility], [place] and no etiology was found for his altered mental status.? However they did not do an MRI at that facility.? [facility].? At rehab patient was again unable to eat and was placed on a pureed diet.? Rehab facility thought the patient may have aspirated because he had an episode of choking with eating.? He was sent to the ER for evaluation for possible pneumonia.? The therapist at the nursing facility suggest patient may need a G-tube.? Family still desires patient to be a full code.? In the ER patient only had a small amount of urine output.? He received 1 L of IV fluids.? His labs were relatively unremarkable except for a BUN of 33 and trace ketones in his urine.? His urine also appeared bloody during straight teddy
--- NOTE | 2023-07-28 11:40 | PC.NURSE ---
On 07/28/23, the student, [Fanny Perkins], provided care and completed [facility] documentation on this patient. I have reviewed the student's documentation and agree with the findings.
[2023-07-28 14:00] VITALS: BP 174/74; PULSE 84; RESP 17; TEMP 36.6; O2SAT 98
--- NOTE | 2023-07-28 15:59 | WPDGIPROGNO ---
Progress Note: A&P Assessment and Plan (1) Dysphagia: Qualifiers: Dysphagia type: unspecified Qualified Code(s): R13.10 - Dysphagia, unspecified Code(s): R13.10 - Dysphagia, unspecified Status: Acute Assessment and Plan: he is tolerating tube feeding at goal discharge soon per primary keep abdominal binder in place (2) Encephalopathy acute: Code(s): G93.40 - Encephalopathy, unspecified Status: Acute (3) Severe protein-calorie malnutrition: Code(s): E43 - Unspecified severe protein-calorie malnutrition Status: Acute Assessment and Plan: started on tube feeding (4) Altered mental status: Qualifiers: Altered mental status type: unspecified Qualified Code(s): R41.82 - Altered mental status, unspecified Code(s): R41.82 - Altered mental status, unspecified Status: Acute (5) Vascular dementia: Qualifiers: Dementia severity: severe Dementia behavioral or psychological symptom: unspecified whether behavioral, psychotic, or mood disturbance or anxiety Qualified Code(s): F01.C0 - Vascular dementia, severe, without behavioral disturbance, psychotic disturbance, mood disturbance, and anxiety Code(s): F01.50 - Vascular dementia, unspecified severity, without behavioral disturbance, psychotic disturbance, mood disturbance, and anxiety Status: Acute Assessment and Plan: advanced and needs total care Subjective Date/time seen: 07/28/23 15:59 Interval history: peg placement yesterday, tolerating tube feeding at goal 55 ml/h and plan is to discharge soon Review of Systems Review of Systems: All systems reviewed & are unremarkable except as noted in HPI and below Exam Const: Other: awake but mumbling and confused HENMT: Face/Nose/Sinus: Normal nares present Eyes: Sclera: sclerae normal Neck: Neck: supple Resp: Effort & Inspection: normal respiratory effort Cardio: Rhythm: regular rhythm GI: GI Palp: Yes Soft to palpation Auscultation: normal bowel sounds Other: g-tube in position Skin: General skin exam: normal color Neuro: Other: confused, abnormal speech Extrem: General: normal to inspection Psych: Other: confused Objective Data Vital Signs Vital Signs: Vital Signs - 24 hr 07/27/23 20:05 07/27/23 20:08 07/27/23 20:22 Temperature 98.6 F Pulse Rate 90 90 Respiratory Rate 17 Blood Pressure 187/86 H 187/96 H Pulse Oximetry 98 Oxygen Delivery 07/27/23 20:00 07/27/23 21:12 07/28/23 05:56 Temperature 98.3 F Pulse Rate 64 Respiratory Rate 17 Blood Pressure 164/92 H 130/70 Pulse Oximetry 97 Oxygen Delivery Room Air 07/28/23 08:00 07/28/23 14:00 Temperature 97.8 F Pulse Rate 84 Respiratory Rate 17 Blood Pressure 174/74 H Pulse Oximetry 98 Oxygen Delivery Room Air Intake/Output Intake/Output: Intake & Output 07/25/23 07/26/23 07/27/23 07/28/23 23:59 23:59 23:59 23:59 Intake Total 1000 2000 2300 740 Output Total 227 795 5463 50 Balance 900 1800 1200 690 Meds/Results Medications: Active Medications Generic Name Dose Route Start Last Admin Trade Name Freq PRN Reason Stop Dose Admin Brimonidine Tartrate 1 drop 07/26/23 21:00 07/27/23 20:09 Brimonidine Tartrate 0.2% Op Soln 5 Ml Btl EACH EYE 1 drop HS MAGEN Administration Metoprolol Tartrate 5 mg 07/26/23 02:54 07/27/23 20:08 Metoprolol Tartrate Inj 5 Mg/5 Ml Vial IV PUSH 5 mg Q6H PRN Administration SBP greater than 160 Pantoprazole Sodium 40 mg 07/28/23 09:00 Pantoprazole 40 Mg Tablet PO QAM MAGEN Pantoprazole Sodium 40 mg 07/28/23 09:00 07/28/23 08:46 Pantoprazole Sodium Iv 40 Mg Vial IV PUSH 40 mg QAM MAGEN Administration Timolol Maleate 1 drop 07/26/23 21:00 07/27/23 20:09 Timolol Maleate 0.5% Op Soln 5 Ml Bottle EACH EYE 1 drop HS MAGEN Administration Radiology Results: ITS I
== END 2023-07-28 18:29 | DRG 56 ==
LOC: ANHED 18:00 → ANH2MED 23:41
PROVIDERS: Internal Medicine Gastroenterology; Nurse Practitioner; Admitting Provider Internal Medicine; Emergency Provider Physician Assistant; PCP Internal Medicine; Visit Provider Nurse Practitioner Family
PROC: 0DJ08ZZ Inspection of Upper Intestinal Tract, Via Natural or Artificial Opening Endoscopic (ICD-10-PCS; CPT 43235; principal; 2023-07-27 13:00)
PROC: 0DH63UZ Insertion of Feeding Device into Stomach, Percutaneous Approach (ICD-10-PCS; CPT 43246; 2023-07-27 13:00)
DX: G30.9 Alzheimer's disease, unspecified (principal); E43 Unspecified severe protein-calorie malnutrition; F02.818 Dementia in other diseases classified elsewhere, unspecified severity, with other behavioral disturbance; R47.01 Aphasia; G32.89 Other specified degenerative disorders of nervous system in diseases classified elsewhere; Z20.822 Contact with and (suspected) exposure to COVID-19; E86.0 Dehydration; R13.19 Other dysphagia; R62.7 Adult failure to thrive; I10 Essential (primary) hypertension; H40.9 Unspecified glaucoma; K29.80 Duodenitis without bleeding; N40.0 Benign prostatic hyperplasia without lower urinary tract symptoms; Z96.1 Presence of intraocular lens; Z98.42 Cataract extraction status, left eye; Z98.41 Cataract extraction status, right eye; Z68.33 Body mass index [BMI] 33.0-33.9, adult; Z99.3 Dependence on wheelchair
CPT/HCPCS: 36415; 43246; 70450; 70553; 71045; 74176; 80053; 81001; 83605; 83735; 84145; 84443; 85025; 87637; 92523; 92611; 93005; 96361; 96374; 99285; A9270; A9577; C9113; G0378; J0690; J2704; J7030; J7120

== ENCOUNTER 2023-08-16 16:15 | Inpatient (IN) | payer MEDICARE, SELFPAY ==
[2023-08-16] VITALS (25 sets, daily range): BP systolic 122–210; BP diastolic 73–120; PULSE 108–140; RESP 12–38; TEMP 37.8–38.6; O2SAT 92–100
--- NOTE | ~2023-08-16 | CT_ITS ---
EXAMINATION: CT chest abdomen pelvis w con DATE: 08/16/2023 19:13 INDICATION: Shortness of breath and sepsis. Suspected pneumonia. Abdominal tenderness. TECHNIQUE: Computed tomography (CT) of the chest, abdomen, and pelvis was performed with 100 mL Omnip aque-350 intravenous contrast. Automated exposure control and iterative reconstruction technique were employed. The dose-length product was 1424.07 mGy-cm. COMPARISON: CT dated 07/25/2023 FINDINGS: CHEST CT: Patchy consolidation and groundglass opacities in the basilar segments of the bilateral lower lobes c onsistent with pneumonia. There is additional bandlike discoid atelectasis at the lingula and right l ower lobe. Borderline heart size. Atherosclerotic coronary artery calcification. No pericardial or pl eural effusion. Thoracic aorta is normal in caliber with no dissection. Calcified right lower lobe no dule and calcified right hilar and mediastinal lymph nodes consistent with old granulomatous disease. Severe lower thoracic and moderate to severe thoracic spondylosis. ABDOMEN/PELVIS CT: Percutaneous gastrostomy tube bulb within the distal body of the stomach. Multiple tiny gallstones la yering along the dependent wall of the normal-appearing gallbladder. Liver is normal. No intra or ext rahepatic biliary ductal dilation. Pancreas, spleen, bilateral adrenal glands and kidneys are normal. There is mild to moderate diverticulosis along the descending and sigmoid colon without adjacent inf lammatory change to suggest diverticulitis. Small bowel and appendix are normal. Prostatomegaly measu ring 6.6 x 5.6 cm. There is a 2.2 x 1.8 x 1.7 cm heterogeneously enhancing intraluminal nodule at the base of the bladder which could represent either a bladder neoplasm or exophytic nodule arising from the prostate. No free intraperitoneal gas or fluid. No pathologically enlarged abdominal or pelvic l ymphadenopathy. Severe lumbar spondylosis. IMPRESSION: 1. Patchy lung disease in the basilar segments of the bilateral lower lobes consistent with pneumonia . 2. Cholelithiasis. 3. Mild to moderate diverticulosis. 4. Prostatomegaly. 5. 2.2 cm intraluminal nodule at the base of bladder could represent exophytic nodular extension of t he prostate versus urothelial carcinoma. Correlate with urinalysis and consider cystoscopy for furthe r evaluation. Reviewed, dictated and finalized at location A. ERCIAL TITLE EXAMINER IMPRESSION: 1. Patchy lung disease in the basilar segments of the bilateral lower lobes con sistent with pneumonia. 2. Cholelithiasis. 3. Mild to moderate diverticulosis. 4. Prostatomegaly. 5. 2.2 cm intraluminal nodule at the base of bladder could represent exophytic nodular extension of the prostate versus urothelial carcinoma. Correlate with u rinalysis and consider cystoscopy for further evaluation.
--- NOTE | ~2023-08-16 | XR_ITS ---
EXAMINATION: XR chest 1V DATE: 08/16/2023 18:59 INDICATION: Suspected pneumonia. TECHNIQUE: frontal view of the chest was obtained. COMPARISON: Chest radiograph dated 07/25/2023 FINDINGS: Oblique bandlike discoid atelectasis in the right lower lung zone. Opacities in the left lower lung z one and more subtle opacities project over the right hemidiaphragm with suggestion of some air bronch ograms which could represent additional atelectasis or pneumonia. No pleural effusion or pneumothorax . The cardiomediastinal silhouette is normal. IMPRESSION: 1. Opacities in bilateral lower lung zones which could represent atelectasis and/or pneumonia. Reviewed, dictated and finalized at location A. AL DEPARTMENT SPECIALIST IMPRESSION: 1. Opacities in bilateral lower lung zones which could represent atelectasis an d/or pneumonia.
--- NOTE | ~2023-08-16 | XR_ITS ---
EXAMINATION: XR chest 1V portable INDICATION: Respiratory failure TECHNIQUE: Portable AP chest at 1040 hours COMPARISON: 08/22/2023 FINDINGS: A left upper extremity PICC ends with its tip in the midsuperior vena cava. The endotrachea l tube has been removed. Bibasilar airspace opacities persist without significant change. No pleural effusion or pneumothorax. The cardiomediastinal silhouette is stable. IMPRESSION: 1. Stable bibasilar airspace opacities, consistent with atelectasis versus pneumonia. 2. Extubation. Reviewed, dictated and finalized at location B. MOTIVE SERVICE CONSULTANT IMPRESSION: 1. Stable bibasilar airspace opacities, consistent with atelectasis versus pneu monia. 2. Extubation.
--- NOTE | ~2023-08-16 | XR_ITS ---
Portable chest x-ray Comparison: 08/18/2023 Clinical History: Respiratory failure Findings: Endotracheal tube and NG tube remain in place. There is mild central congestive change and probable minimal pulmonary edema. Cardiomediastinal silhouette is stable. Bones and soft tissues ar e unremarkable. Impression: Central congestive change and probable minimal pulmonary edema. Support tubes, as above. Reviewed, dictated and finalized at location . EMATICS DEPARTMENT CHAIR Impression: Central congestive change and probable minimal pulmonary edema. Support tubes, as above.
--- NOTE | ~2023-08-16 | XR_ITS ---
EXAMINATION: XR chest ET placement, XR abdomen gastric tube insert DATE: 08/16/2023 20:12 INDICATION: Post endotracheal tube pacemaker and nasogastric tube placement. TECHNIQUE: 1. Frontal view of the chest was obtained. 2. Frontal view of the abdomen was obtained. COMPARISON: CT chest, abdomen and pelvis dated 08/16/2023 FINDINGS: Chest: Endotracheal tube tip 1.1 cm above the jonathon. Airspace opacities in bilateral lower lung zones consi stent with combination of atelectasis and pneumonia. No pleural effusion or pneumothorax. Borderline heart size. Abdomen: Nasogastric tube tip in proximal side port in the proximal body the stomach. There is also a percutan eous gastrostomy tube in the mid body of the stomach. No dilated loops of gas-filled bowel in the vis ualized abdomen. There are some excreted contrast in both renal collecting systems and along the left ureter resulting from the earlier contrast-enhanced CT . Severe lumbar and lower thoracic spondylosi s. IMPRESSION: 1. Endotracheal tube and nasogastric tube in expected positions. 2. Airspace opacities in bilateral lower lung zones with appearance on prior CT consistent with combi nation of atelectasis and pneumonia. Reviewed, dictated and finalized at location A. FRAMER MACHINE IMPRESSION: 1. Endotracheal tube and nasogastric tube in expected positions. 2. Airspace opacities in bilateral lower lung zones with appearance on prior CT consistent with combination of atelectasis and pneumonia.
--- NOTE | ~2023-08-16 | XR_ITS ---
EXAMINATION: XR chest 1V portable DATE: 08/19/2023 11:15 INDICATION: PICC line placement TECHNIQUE: frontal view of the chest was obtained. COMPARISON: Chest radiograph dated 08/19/2013 at 5:38 AM FINDINGS: Newly placed left upper extremity peripherally inserted central venous catheter (PICC) tip at the schneider perior cavoatrial junction. Endotracheal tube tip 2.1 cm above the jonathon. Nasogastric tube tip in p roximal side port in the stomach. Persistent opacities in bilateral lower lung zones which could represent atelectasis and/or pneumonia . Blunting at the right costophrenic angle consistent with small right pleural effusion. The cardiome diastinal silhouette is normal. IMPRESSION: 1. Right PICC line tip at the superior cavoatrial junction. 2. Unchanged opacities in bilateral lower lung zones consistent with atelectasis and/or pneumonia jose ng with likely small right pleural effusion. Reviewed, dictated and finalized at location A. DEVELOPER PROGRAMMER IMPRESSION: 1. Right PICC line tip at the superior cavoatrial junction. 2. Unchanged opacities in bilateral lower lung zones consistent with atelectasi s and/or pneumonia along with likely small right pleural effusion.
--- NOTE | ~2023-08-16 | XR_ITS ---
Portable chest x-ray Comparison: 08/16/2023 Clinical History: Respiratory failure Findings: Endotracheal tube and NG tube are in place. Probable minimal pleural effusions with mild p ulmonary edema pattern. Cardiomediastinal silhouette is stable. Bones and soft tissues are unremarka ble. Impression: Minimal pleural effusions and mild pulmonary edema pattern. Support tubes, as above. Reviewed, dictated and finalized at location . FOURTH Impression: Minimal pleural effusions and mild pulmonary edema pattern. Support tubes, as above.
--- NOTE | ~2023-08-16 | XR_ITS ---
EXAMINATION: XR chest 1V portable DATE: 08/21/2023 05:47 INDICATION: Respiratory failure TECHNIQUE: frontal view of the chest was obtained. COMPARISON: Chest radiograph dated 08/20/2023 FINDINGS: Endotracheal tube tip 3.0 cm above the jonathon. Nasogastric tube tip in the body the stomach. Proximal side-port is at the level of the gastroesophageal junction. Left upper extremity peripherally insert ed central venous catheter (PICC) tip at the mid superior vena cava. Persistent opacities in bilateral lower lung zones some which demonstrates linear bandlike configurat ion consistent with atelectasis although associated pneumonia not excludable. No pulmonary edema, pne umothorax or definitive pleural effusion. The cardiomediastinal silhouette is normal. IMPRESSION: 1. No significant change in opacities in the bilateral lower lung zones consistent with atelectasis, potentially with superimposed pneumonia. 2. Nasogastric tube tip in the stomach but proximal side-port at the level of the gastroesophageal ju nction and would recommend advancement by 5 cm. Reviewed, dictated and finalized at location A. ING MACHINE OPERATOR IMPRESSION: 1. No significant change in opacities in the bilateral lower lung zones consist ent with atelectasis, potentially with superimposed pneumonia. 2. Nasogastric tube tip in the stomach but proximal side-port at the level of t he gastroesophageal junction and would recommend advancement by 5 cm.
--- NOTE | ~2023-08-16 | XR_ITS ---
EXAMINATION: XR chest 1V portable INDICATION: Pneumonia TECHNIQUE: Portable AP chest at 0956 hours COMPARISON: 08/24/2023 FINDINGS: The left upper extremity PICC ends with its tip in the midsuperior vena cava. There are per sistent but improved airspace opacities of the lung bases. No pleural effusion or pneumothorax. The c ardiomediastinal silhouette is stable. IMPRESSION: 1. Persistent but improving bibasilar airspace opacities, consistent with atelectasis versus pneumoni a. Reviewed, dictated and finalized at location L. MITER IMPRESSION: 1. Persistent but improving bibasilar airspace opacities, consistent with atele ctasis versus pneumonia.
--- NOTE | ~2023-08-16 | XR_ITS ---
Portable chest x-ray Comparison: 08/21/2023 Clinical History: Respiratory failure Findings: Endotracheal tube and left-sided PICC line are in place. There is bibasilar atelectasis or scarring. Cardiomediastinal silhouette is stable. Bones and soft tissues are unremarkable. Impression: Support tubes, as above. Probable bibasilar atelectatic change. Reviewed, dictated and finalized at location . NESS MACHINE OPERATOR Impression: Support tubes, as above. Probable bibasilar atelectatic change.
--- NOTE | ~2023-08-16 | XR_ITS ---
EXAMINATION: XR chest 1V portable DATE: 08/20/2023 05:55 INDICATION: Respiratory failure TECHNIQUE: frontal view of the chest was obtained. COMPARISON: Chest radiograph dated 08/19/2023 FINDINGS: Endotracheal tube tip 3.1 cm above the jonathon. Nasogastric tube extends below the left hemidiaphragm with distal tip collimated off the study. Left upper extremity peripherally inserted central venous catheter (PICC) tip at the caudal superior vena cava. There are some persistent airspace opacities in bilateral lower lung zones. No pneumothorax or defini tive pleural effusion. The cardiomediastinal silhouette is normal. IMPRESSION: 1. No significant change in opacities in the bilateral lower lung zones consistent with atelectasis a nd/or pneumonia. Reviewed, dictated and finalized at location A. RONMENTAL TECHNICAL OFFICER IMPRESSION: 1. No significant change in opacities in the bilateral lower lung zones consist ent with atelectasis and/or pneumonia.
--- NOTE | ~2023-08-16 | US_ITS ---
EXAMINATION: US retroperitoneal comp DATE: 08/25/2023 20:31 INDICATION: Hematuria. TECHNIQUE: Multiple ultrasound grayscale images of the kidneys were obtained. COMPARISON: CT abdomen and pelvis 08/16/2023 FINDINGS: The right kidney measures 12.9 x 6.0 x 5.5 cm. The left kidney measures 10.8 x 4.8 x 6.7 cm. The kidn eys demonstrate normal parenchymal echogenicity. There is no hydronephrosis. The bladder is decompres sed by a Rodriguez catheter. IMPRESSION: 1. Normal kidneys. No hydronephrosis. Reviewed, dictated and finalized at location E. W POINT ATTACHER
--- NOTE | 2023-08-16 17:21 | ECG_ITS ---
Measurements Intervals [place] Rate: 125 P: ME: 0 QRS: -43 QRSD: 94 T: 11 QT: 411 QTc: 594 Interpretive Statements SINUS TACHYCARDIA WITH PREMATURE ATRIAL CONTRACTIONS PATTERN CONSISTENT WITH PULMONARY DISEASE INFERIOR MYOCARDIAL INFARCTION , PROBABLY OLD [40+ ms Q WAVE AND/OR ST/T ABNORMALITY IN II/aVF] ABNORMAL ECG COMPARED TO ECG 07/25/2023 20:59:39 ATRIAL FIBRILLATION NOW PRESENT Electronically Signed On 08-17-2023 11:43:12 WINK CUTTER OPERATOR by Aleksey Marina M.D.
--- NOTE | 2023-08-16 17:29 | ED.GENADULT ---
HPI - General Adult General Chief complaint: Unspecified Stated complaint: AMS, low O2 sats Time Seen by Provider: 08/16/23 17:08 Source: family, EMS and RN notes reviewed Mode of arrival: EMS Limitations: dementia History of Present Illness HPI narrative: This is a 88 year old male with PMH of vascular dementia, BPH, HTN, aphasia alert oriented x1 at baseline who presents to the ED via EMS from assisted for AMS and dyspnea. He was placed on 4 L of O2 nasal cannula EN route which is increased from his baseline of 2 L that was started recently after having about a potential pneumonia. The EMS reports that assisted staff state patient normally looking your direction and mumble words but he was not doing so today. On history patient does look my direction and he does mumble words but I cannot elicit any history from him. is bedside and giving some of the history from the previous several months where he is known to have advancing dementia. He was admitted and had a G-tube placed a a couple of months ago. She states ever since having this placed he seems to have some crusted material forming in the mouth. Related Data Home Medications Medication Instructions Recorded Confirmed PreserVision AREDS-2 1 cap PO DAILY 07/26/23 07/26/23 aspirin 81 mg tablet,delayed 81 mg PO DAILY 07/26/23 07/26/23 release atorvastatin 20 mg tablet 20 mg PO DAILY 07/26/23 07/26/23 brimonidine 0.2 %-timolol 0.5 % 1 drp ophthalmic (eye) HS 07/26/23 07/26/23 eye drops buspirone 5 mg tablet 2.5 mg PO BID 07/26/23 07/26/23 chlorthalidone 25 mg tablet 25 mg PO DAILY 07/26/23 07/26/23 lycopene 10 mg capsule 10 mg PO DAILY 07/26/23 07/26/23 metoprolol succinate 50 mg 50 mg PO DAILY 07/26/23 07/26/23 tablet,extended release 24 hr potassium chloride 20 mEq 20 meq PO DAILY 07/26/23 07/26/23 tablet,extended release(part/cryst) (Klor-Con M) quetiapine 25 mg tablet 25 mg PO HS PRN Sleep 07/26/23 07/26/23 tamsulosin 0.4 mg capsule 0.4 mg PO DAILY 07/26/23 07/26/23 Allergies Allergy/AdvReac Type Severity Reaction Status Date / Time No Known Allergies Allergy Verified 07/27/23 09:35 Review of Systems Review of Systems: All systems as dictated in [facility] Past Medical History Medical History (Updated 08/17/23 @ 00:13 by Lynnette Claudio MD) Age-related macular degeneration, wet, left eye BPH (benign prostatic hyperplasia) Dementia Encephalopathy acute Essential hypertension Glaucoma Hyperlipidemia Surgical History Surgical History (Updated 07/26/23 @ 02:59 by Anh Rodriguez DO) Status post cataract extraction of both eyes with insertion of intraocular lens Family History Family History Sibling Acute myocardial infarction Cerebrovascular accident Chronic obstructive pulmonary disease Mother Hypertension Acute myocardial infarction Social History Social History (Updated 07/26/23 @ 03:00 by Anh Rodriguez DO) Social History: The patient lives at home with his until recent hospitalization at [facility] early July 2023. Code status: Full code Surrogate decision maker: Smoking status: Never smoker Alcohol intake: never Substance use: never Do You Feel Safe in your Home?: Yes Lack of Transportation: No Lack of Food: Never True Current Housing: I Have Housing Concerned About Future Housing: No Difficulty Paying Gas/Electric Bills: No Difficulty Paying for Meds: No Currently Unemployed: No Education: Bachelor's Degree Difficulty w/ Childcare or Family Care: No Spiritual care concerns: No Exam Narrative: GENERAL: Appears chronically ill. Appears very dry on exam HEAD: Normocephalic, atraumatic. EYES: PERRLA and EOMI. ENT: There are crusted, dry mucous/materials coding the mouth, tongue and posterior pharynx. Nares clear, no rhinorrhea or epistaxis. Mucous membranes moist. O
[2023-08-16] MEDS: SODIUM CHLORIDE 0.9% IV 2,300 ML/1,000 ML BAG 999 ML IV CONT ×3 (17:50→19:27)
[2023-08-16 18:32] LABS: Basophils Percent Auto 0.2 % (0.2-1.2); Hematocrit 44.5 % (42.0-52.0); Immature Granulocyte Absolute 0.12 K/mm3 (0.00-0.031); Immature Granulocyte Percent A 0.6 % (0-0.5); Lymphocytes Absolute Auto 1.45 K/mm3 (0.9-3.2); Lymphocytes Percent Auto 7.8 % (18.3-44.2); Mean Corpuscular HGB Conc 31.5 g/dl (32-36); Mean Corpuscular Hemoglobin 30.7 pg (26-34); Mean Corpuscular Volume 97.6 fl (80-100); Mean Platelet Volume 11.1 fl (7.4-10.4); Monocytes Absolute Auto 1.8 K/mm3 (0.1-0.6); Monocytes Percent Auto 9.6 % (2.6-8.5); Neutrophils Absolute Auto 15.2 K/mm3 (1.3-6.7); Neutrophils Percent Auto 81.8 % (45.5-73.1); Platelet Count Result 266 k/mm3 (150-375); Red Blood Count 4.56 M/mm3 (4.6-6.20); Red Cell Distribution Width 12.6 % (11.5-14.5); White Blood Count 18.6 K/mm3 (4.5-10.0)
[2023-08-16 18:42] LABS: Lactic Acid Reflex 2.1 mmol/L (0.7-2.0)
[2023-08-16 18:43] LABS: INR 1.1
[2023-08-16 18:45] LABS: Lipase 58 U/L (23-300)
[2023-08-16 18:47] LABS: Alanine Aminotransferase 62 U/L (6-50); Albumin Level 3.3 g/dL (3.5-5.1); Alkaline Phosphatase 87 U/L (38-126); Anion Gap 3 mmol/L (8-16); Aspartate Amino Transferase 40 U/L (17-59); Bilirubin,Total 0.8 mg/dL (0.2-1.3); Blood Urea Nitrogen 64 mg/dL (9-20); CRP 3.2 mg/dL (<1.0); Calcium 10.7 mg/dL (8.4-10.2); Carbon Dioxide 33 mmol/L (22-30); Chloride 116 mmol/L (98-107); Estimated CRCL calculation 34 ml/min; Estimated Glomerular Filt Rate 52; Glucose 114 mg/dL (65-110); Potassium 3.4 mmol/L (3.4-5.0); Sodium 152 mmol/L (137-145)
[2023-08-16 19:28] LABS: Base Excess ABG 1.6 mEq/l (+/-2.0); Device NASAL CANNULA; Fractional Inspired Oxygen 35 %; HCO3 ABG 24.3 mEq/l (22.0-26.0); Liters per Minute 3.5 LPM; Modified Allen's Test Pass; Oxygen Content ABG 16.5 %vol (16.0-22.0); Oxygen Saturation ABG 95.7 % (95.0-100.0); PCO2 ABG 32.6 mmHg (35.0-45.0); PO2 ABG 71.7 mmHg (80.0-100.0); PO2 FiO2 Ratio Arterial Blood 2.05 %; Site Drawn RIGHT RADIAL; Total Hemoglobin 12.6 g/dL (12.0-18.0); pH ABG 7.491 (7.350-7.450)
[2023-08-16] MEDS: FENTANYL 2,500MCG/NS250ML(*CRX 2,500 MCG/250 ML BAG IV CONT (20:33)
[2023-08-16] MEDS: MIDAZOLAM 100MG/NS 100ML(*CRX) 100 MG/100 ML BAG IV CONT (20:34)
[2023-08-16 20:38] LABS: Alveolar/Arterial O2 Gradient 171.8 mmHg; Arterial Blood Gas PEEP 5 cmH2O; Arterial Blood Gas Vent Mode CMV; Arterial Blood Gas Ventilator rate 16 /MIN; Base Excess ABG 2.7 mEq/l (+/-2.0); Device VENTILATOR; Fractional Inspired Oxygen 40 %; HCO3 ABG 25.5 mEq/l (22.0-26.0); Modified Allen's Test Pass; Oxygen Content ABG 17.9 %vol (16.0-22.0); Oxygen Saturation ABG 96.1 % (95.0-100.0); Oxyhemoglobin 93.9 % THb (90.0-100.0); PCO2 ABG 33.9 mmHg (35.0-45.0); PO2 ABG 74.4 mmHg (80.0-100.0); PO2 FiO2 Ratio Arterial Blood 1.86 %; Site Drawn RIGHT RADIAL; Total Hemoglobin 13.5 g/dL (12.0-18.0); pH ABG 7.495 (7.350-7.450)
[2023-08-16 20:39] LABS: Arterial Blood Gas Tidal Volume 450 ml
--- NOTE | 2023-08-16 20:45 | PC.NURSE ---
1943 Pt switched to 15L O2 1945 20mg etomidate IV push VORB ERP Parker and Zych 1946 100mg Rocuronium IV push VORB ERP Parker and Zych BVM respirations 1948 ET tube placed 1949 bvm respirations performed, O2 - 99%, positive color change noted, chest rise and fall noted, bilateral breath sounds auscultated per PA. Parker 1950 7.5 ET tube secured - 25 @ teeth 1954 16 divehi OG tube placed @ 65, vitals : bp -210/120, resp 19, O2 100%, pulse 127, auscultation per ALFRED Gallardo 1957 0.5mg dilaudid IV push VORB ERP Zych 1mg ativan IV push VORB ERP Zych 2001 vitals : pulse 122, O2 98%, resp 16, bp 181/82 2009 16 divehi, ramos catheter placed, 150mL urine drained 2014 soft restraints placed
--- NOTE | 2023-08-16 21:10 | PC.NURSE ---
Respiratory changed vent rate setting to 12 per VORB per CANDI Canales.
[2023-08-16] MEDS: AZITHROMYCIN 500 MG/NS 250 ML 500 MG/250 ML BAG 250 MG IVPB (21:15)
[2023-08-16 21:24] LABS: Appearance Urine Clear (Clear); Bacteria Urine None Seen /hpf; Bilirubin Urine Negative (Negative); Blood Urine Negative (Negative); Color Urine Yellow (Yellow); Glucose Urine UA Negative (Negative); Ketones Urine Negative (Negative); Leukocyte Esterase Ur Negative LEU/UL (Negative); Nitrate Urine Negative (Negative); Non Pathogenic Casts 0-2; Protein Urine Trace mg/dL (Negative); RBC Urine 0-2 /hpf (0-2); Squamous Epithelial Cell Urine None seen /hpf (Few); WBC Urine 0-5 /hpf; pH Urine 5.5 (5.0-9.0)
[2023-08-16 21:29] LABS: Reflex Lactic Acid Yes or No Add Lactic
[2023-08-16 21:30] LABS: Add Urine Microscopic? YES; Specific Grav Ur 1.049 (1.001-1.035)
[2023-08-16] MEDS: metroNIDAZOLE 500 MG/ISO 100ML 500 MG/100 ML BAG 100 MG IVPB (22:31)
[2023-08-16] MEDS: ACETAMINOPHEN 650 MG SUPPOSITORY RECTAL (22:52)
[2023-08-16 23:37] LABS: Lactic Acid 3.2 mmol/L (0.7-2.0)
--- NOTE | 2023-08-16 23:43 | PC.NURSE ---
Attempted to call report to TELLER SUPERVISOR. Was told RN needs to call back in 5 min
--- NOTE | 2023-08-16 23:53 | PM.IMHP ---
H&P: HPI History of Present Illness Date/Time: 08/16/23 23:53 Chief Complaint: AMS and SOB Narrative: An 88-year-old male with past medical history of vascular dementia, hypertension, aphasia and alert and oriented x1 at baseline, was on 2 L [facility] oxygen at [facility] for potential pneumonia. He was sent to the ER for altered mental status and shortness of breath. His oxygen requirement was increased to 4 L O2 nasal cannula prior to arrival to the ED. at his baseline he looks at hydration and mumbles and he was not doing that at the ER. Patient had to be intubated. He was worked up and found to have leukocytosis of 18,000 with lactic acidosis of 2.1 would imaging of the chest showing bilateral pneumonia. He was also found to have a noted lung mass in the base of the bladder and prostate. Patient started on IV antibiotic with IV hydration is ongoing and I was called to admit this patient for further management. , Review of Systems Review of Systems: All systems reviewed & are unremarkable except as noted in HPI and below PMFSH Past Medical History Medical History (Updated 08/17/23 @ 00:13 by Lynnette Claudio MD) Age-related macular degeneration, wet, left eye BPH (benign prostatic hyperplasia) Dementia Encephalopathy acute Essential hypertension Glaucoma Hyperlipidemia Surgical History Surgical History (Updated 07/26/23 @ 02:59 by Anh Rodriguez DO) Status post cataract extraction of both eyes with insertion of intraocular lens Family History Family History Sibling Acute myocardial infarction Cerebrovascular accident Chronic obstructive pulmonary disease Mother Hypertension Acute myocardial infarction Social History Social History (Updated 07/26/23 @ 03:00 by Anh Rodriguez DO) Social History: The patient lives at home with his until recent hospitalization at [facility] early July 2023. Code status: Full code Surrogate decision maker: Smoking status: Never smoker Alcohol intake: never Substance use: never Do You Feel Safe in your Home?: Yes Lack of Transportation: No Lack of Food: Never True Current Housing: I Have Housing Concerned About Future Housing: No Difficulty Paying Gas/Electric Bills: No Difficulty Paying for Meds: No Currently Unemployed: No Education: Bachelor's Degree Difficulty w/ Childcare or Family Care: No Spiritual care concerns: No Meds Home Medications and Allergies Home Medications Medication Instructions Recorded Confirmed Type PreserVision AREDS-2 1 cap PO DAILY 07/26/23 08/17/23 History aspirin 81 mg tablet,delayed 81 mg PO DAILY 07/26/23 08/17/23 History release atorvastatin 20 mg tablet 20 mg PO DAILY 07/26/23 08/17/23 History brimonidine 0.2 %-timolol 0.5 % 1 drp ophthalmic (eye) HS 07/26/23 08/17/23 History eye drops buspirone 5 mg tablet 2.5 mg PO BID 07/26/23 08/17/23 History chlorthalidone 25 mg tablet 25 mg PO DAILY 07/26/23 08/17/23 History lycopene 10 mg capsule 10 mg PO DAILY 07/26/23 08/17/23 History metoprolol succinate 50 mg 50 mg PO DAILY 07/26/23 08/17/23 History tablet,extended release 24 hr potassium chloride 20 mEq 20 meq PO DAILY 07/26/23 08/17/23 History tablet,extended release(part/cryst) (Klor-Con M) quetiapine 25 mg tablet 25 mg PO HS PRN Sleep 07/26/23 08/17/23 History tamsulosin 0.4 mg capsule 0.4 mg PO DAILY 07/26/23 08/17/23 History famotidine 20 mg tablet 20 mg PO DAILY #30 tabs 07/28/23 08/17/23 Rx Allergies Allergy/AdvReac Type Severity Reaction Status Date / Time No Known Allergies Allergy Verified 07/27/23 09:35 Vital Signs Vital Signs - 24 hr 08/16/23 16:21 08/16/23 16:21 08/16/23 16:22 Temperature 100.4 F H Pulse Rate 123 H 124 H 119 H Respiratory Rate 32 H 32 H 33 H Blood Pressure 132/75 132/75 Pulse Oximetry 100 Oxygen Delivery Nasal Cannula Oxygen F
[2023-08-17] VITALS (28 sets, daily range): BP systolic 98–146; BP diastolic 67–91; PULSE 88–135; RESP 12–20; TEMP 36.8–38.7; O2SAT 96–100; BMI 26.7; BMI 25.9
--- NOTE | 2023-08-17 00:42 | ADMGEN ---
This patient, Anton Fortune, was admitted to Intensive Care Unit-4 on 08/17/23 at 0025. Patient/family oriented to hospital policies and general routines including ID bracelet, bed and alarms, visiting hours, pain management, procedures, bathroom and other care routines, personal items, smoking policy, room service/diet, and visiting hours. Information on how to activate the Rapid Response Team has been discussed. Patient/Family are encouraged to report perceived risks to care and to ask questions if they do not understand what they are told or what they should do.
[2023-08-17] MEDS: SODIUM CHLORIDE 0.9% IV 1,000 ML 125 ML IV CONT (01:12)
[2023-08-17] MEDS: VANCOMYCIN 2,000 MG/NS 500 ML 2,000 MG/500 ML BAG 250 MG IVPB (01:37)
[2023-08-17 02:04] LABS: Anion Gap 8 mmol/L (8-16); Blood Urea Nitrogen 58 mg/dL (9-20); Calcium 10.2 mg/dL (8.4-10.2); Carbon Dioxide 26 mmol/L (22-30); Chloride 119 mmol/L (98-107); Estimated CRCL calculation 36 ml/min; Estimated Glomerular Filt Rate 57; Glucose 102 mg/dL (65-110); Potassium 3.9 mmol/L (3.4-5.0); Sodium 153 mmol/L (137-145)
[2023-08-17 03:21] LABS: MRSA (PCR) DETECTED (NOT DETECTE)
[2023-08-17] MEDS: MEROPENEM 1 GM/NS 100 ML 1 GM/100 ML BAG IVPB ×2 (03:31→14:42)
[2023-08-17 04:05] LABS: Basophils Percent Auto 0.1 % (0.2-1.2); Eosinophils Percent Auto 0.2 % (0-4.4); Hematocrit 41.8 % (42.0-52.0); Hemoglobin 12.9 g/dL (14.0-18.0); Immature Granulocyte Absolute 0.09 K/mm3 (0.00-0.031); Immature Granulocyte Percent A 0.6 % (0-0.5); Lymphocytes Absolute Auto 1.82 K/mm3 (0.9-3.2); Lymphocytes Percent Auto 12.1 % (18.3-44.2); Mean Corpuscular HGB Conc 30.9 g/dl (32-36); Mean Corpuscular Hemoglobin 30.9 pg (26-34); Mean Corpuscular Volume 100.2 fl (80-100); Mean Platelet Volume 10.9 fl (7.4-10.4); Monocytes Percent Auto 6.8 % (2.6-8.5); Neutrophils Percent Auto 80.2 % (45.5-73.1); Platelet Count Result 203 k/mm3 (150-375); Red Blood Count 4.17 M/mm3 (4.6-6.20); Red Cell Distribution Width 12.9 % (11.5-14.5)
[2023-08-17 04:28] LABS: Anion Gap 7 mmol/L (8-16); Blood Urea Nitrogen 55 mg/dL (9-20); Calcium 9.9 mg/dL (8.4-10.2); Carbon Dioxide 27 mmol/L (22-30); Chloride 119 mmol/L (98-107); Estimated CRCL calculation 36 ml/min; Estimated Glomerular Filt Rate 57; Glucose 95 mg/dL (65-110); Potassium 3.4 mmol/L (3.4-5.0); Sodium 153 mmol/L (137-145)
[2023-08-17] MEDS: DEXTROSE 5% 1,000 ML 1,000 ML 125 ML IV CONT ×2 (05:57→13:48)
[2023-08-17] MEDS: ATORVASTATIN 20 MG TABLET FEED TUBE (08:17)
[2023-08-17] MEDS: ASPIRIN 81 MG CHEWABLE TABLET FEED TUBE (08:17)
[2023-08-17] MEDS: ENOXAPARIN 40 MG/0.4 ML SYRINGE SUB-Q (08:18)
[2023-08-17] MEDS: PANTOPRAZOLE SODIUM IV 40 MG VIAL IV PUSH (08:18)
[2023-08-17] MEDS: DOXYCYCLINE HYCLATE 100 MG TABLET FEED TUBE ×2 (08:18→22:13)
[2023-08-17 08:26] LABS: Glucose Point of Care 103 mg/dl (65-105)
--- NOTE | 2023-08-17 09:09 | WPDCNINT ---
Assessment and Plan Assessment and plan (1) Acute hypoxic respiratory failure: Code(s): J96.01 - Acute respiratory failure with hypoxia Status: Acute Assessment and Plan: Acute Respiratory failure secondary to pneumonia which could be aspiration Patient now intubated and on mechanical ventilation CT scan reviewed, chest x-ray and ABG reviewed. Vent settings reviewed. Patient is now down to 35% FiO2 and 5 of PEEP Continue full mechanical ventilation support to prevent hypoxemia/hypercarbia and end organ damage. Low tidal volume ventilation strategy to prevent volutrauma Will attempt SBT when ready to wean. Add bronchodilators Treatment of pneumonia as below (2) Sepsis: Code(s): A41.9 - Sepsis, unspecified organism Status: Acute Assessment and Plan: Sepsis secondary to pneumonia. Pneumonia could be community-acquired versus aspiration since patient has a PEG tube and is on tube feeding Blood cultures have been sent and are pending Check sputum culture Nasal MRSA screen is positive Patient has received IV fluid bolus and is on IV fluid maintenance Continue vancomycin meropenem and doxycycline He has not required any vasopressors (3) Acute hypernatremia: Code(s): E87.0 - Hyperosmolality and hypernatremia Status: Acute Assessment and Plan: Patient on D5 water. Will also start free water flushes Recheck BMP at noon (4) CAROLYNN (acute kidney injury): Code(s): N17.9 - Acute kidney failure, unspecified Status: Acute (5) Bilateral pneumonia: Code(s): J18.9 - Pneumonia, unspecified organism Status: Acute Assessment and Plan: See above (6) Severe protein-calorie malnutrition: Code(s): E43 - Unspecified severe protein-calorie malnutrition Status: Acute Assessment and Plan: Start tube feedings (7) Vascular dementia: Qualifiers: Dementia severity: severe Dementia behavioral or psychological symptom: unspecified whether behavioral, psychotic, or mood disturbance or anxiety Qualified Code(s): F01.C0 - Vascular dementia, severe, without behavioral disturbance, psychotic disturbance, mood disturbance, and anxiety Code(s): F01.50 - Vascular dementia, unspecified severity, without behavioral disturbance, psychotic disturbance, mood disturbance, and anxiety Status: Acute Assessment and Plan: Baseline vascular dementia and patient only oriented to himself Failure to thrive (8) Dysphagia: Qualifiers: Dysphagia type: unspecified Qualified Code(s): R13.10 - Dysphagia, unspecified Code(s): R13.10 - Dysphagia, unspecified Status: Acute Assessment and Plan: History of dysphagia and status post PEG tube placement Plan DVT prophylaxis -Lovenox Stress ulcer prophylaxis -Protonix Nutrition -start Tube Feeds Code Status - Full Code Total Critical Care Time -35 minutes Due to a high probability of clinically significant, life threatening deterioration, the patient required my highest level of preparedness to intervene emergently and I personally spent this critical care time directly and personally managing the patient. This critical care time included obtaining a history; examining the patient; pulse oximetry; ordering and review of studies; arranging urgent treatment with development of a management plan; evaluation of patient's response to treatment; frequent reassessment; and discussions with other providers. It was exclusive of separately billable procedures and treating other patients and teaching time. Please see Assessment and Plan section and the rest of the note for further information on patient assessment and treatment Hardware Sales Assistant Consult Note Consult date: 08/17/23 Reason for consult: Acute respiratory failure HPI: Anton Dickerson Tong is a 88 year old male 88-year-old male with past medical history of vascular dementia, hypertension, aphasia, failure to thrive status p
--- NOTE | 2023-08-17 09:12 | PM.IMPN ---
Progress Note: A&P Assessment and Plan (1) Acute hypoxic respiratory failure: Code(s): J96.01 - Acute respiratory failure with hypoxia Status: Acute (2) Bilateral pneumonia: Code(s): J18.9 - Pneumonia, unspecified organism Status: Acute (3) Sepsis: Code(s): A41.9 - Sepsis, unspecified organism Status: Acute (4) CAROLYNN (acute kidney injury): Code(s): N17.9 - Acute kidney failure, unspecified Status: Acute (5) Acute hypernatremia: Code(s): E87.0 - Hyperosmolality and hypernatremia Status: Acute Plan (1) Acute hypoxic respiratory failure: ?Code(s): J96.01 - Acute respiratory failure with hypoxia ?Status:?Acute ?Assessment and Plan: Acute Respiratory failure secondary to pneumonia which could be aspiration Patient now intubated and on mechanical ventilation X-ray shows multifocal pneumonia Patient is intubated Management per browning processor (2) Sepsis: ?Code(s): A41.9 - Sepsis, unspecified organism ?Status:?Acute ?Assessment and Plan: Patient has a fever, leukocytosis, tachycardia tachypnea, meeting criteria for sepsis, likely secondary to pneumonia Blood cultures have been sent and are pending Check sputum culture Nasal MRSA screen is positive Patient has received IV fluid bolus and is on IV fluid maintenance Continue vancomycin meropenem and doxycycline Patient is not on vasopressors (3) Acute hypernatremia: ?Code(s): E87.0 - Hyperosmolality and hypernatremia ?Status:?Acute ?Assessment and Plan: Likely secondary dehydration patient on D5 water.? Will also start free water flushes Recheck BMP at noon (4) CAROLYNN (acute kidney injury): ?Code(s): N17.9 - Acute kidney failure, unspecified ?Status:?Acute Possible prerenal Patient is on D5 Follow-up BMP (5) Bilateral pneumonia: ?Code(s): J18.9 - Pneumonia, unspecified organism ?Status:?Acute ?Assessment and Plan: X-ray shows multifocal pneumonia, management see above (6) Severe protein-calorie malnutrition: ?Code(s): E43 - Unspecified severe protein-calorie malnutrition ?Status:?Acute ?Assessment and Plan: Start tube feedings (7) Vascular dementia: ?Qualifiers: ?Dementia severity:?severe??Dementia behavioral or psychological symptom:?unspecified whether behavioral, psychotic, or mood disturbance or anxiety? Qualified Code(s):?F01.C0 - Vascular dementia, severe, without behavioral disturbance, psychotic disturbance, mood disturbance, and anxiety ?Code(s): F01.50 - Vascular dementia, unspecified severity, without behavioral disturbance, psychotic disturbance, mood disturbance, and anxiety ?Status:?Acute ?Assessment and Plan: Baseline vascular dementia and patient only oriented to himself Failure to thrive (8) Dysphagia: ?Qualifiers: ?Dysphagia type:?unspecified? Qualified Code(s):?R13.10 - Dysphagia, unspecified ?Code(s): R13.10 - Dysphagia, unspecified ?Status:?Acute ?Assessment and Plan: History of dysphagia and status post PEG tube placement Plan DVT prophylaxis -Lovenox Stress ulcer prophylaxis -Protonix Nutrition -start Tube Feeds Code Status - Full Code Subjective Date/time seen: 08/17/23 09:12 Interval history: I saw and examined patient today, patient is on mechanical ventilation, and on sedation, unresponsive to verbal commands. Patient has fever overnight, the has had temperature 101.4. Labs reviewed. Patient leukocytosis 15,000 with left shift and hypernatremia 148 that is trending down from 153, elevated p.r.n. creatinine 52/1.2 Exam Narrative: GENERAL:? intubated and sedated, not in distress HEAD: Normocephalic, atraumatic. EYES: PERRLA ENT:? ET tube well secured, dry oral mucosa NECK: Supple.? No adenopathy or masses.? CHEST:?Good air entry bilaterally anteriorly. HEART: Tachycardic.? No murmur heard.? Normal peripheral pulse
[2023-08-17 11:54] LABS: Glucose Point of Care 90 mg/dl (65-105)
[2023-08-17 13:06] LABS: Anion Gap 3 mmol/L (8-16); Blood Urea Nitrogen 52 mg/dL (9-20); Calcium 9.6 mg/dL (8.4-10.2); Carbon Dioxide 29 mmol/L (22-30); Chloride 116 mmol/L (98-107); Estimated CRCL calculation 36 ml/min; Estimated Glomerular Filt Rate 57; Glucose 104 mg/dL (65-110); Potassium 3.8 mmol/L (3.4-5.0); Sodium 148 mmol/L (137-145)
[2023-08-17 16:41] LABS: Glucose Point of Care 92 mg/dl (65-105)
[2023-08-17 19:37] LABS: Anion Gap 4 mmol/L (8-16); Blood Urea Nitrogen 47 mg/dL (9-20); Calcium 9.9 mg/dL (8.4-10.2); Carbon Dioxide 28 mmol/L (22-30); Chloride 114 mmol/L (98-107); Estimated CRCL calculation 36 ml/min; Estimated Glomerular Filt Rate 57; Glucose 107 mg/dL (65-110); Magnesium 2.3 mg/dL (1.6-2.3); Potassium 3.1 mmol/L (3.4-5.0); Sodium 146 mmol/L (137-145)
[2023-08-17 22:38] LABS: Glucose Point of Care 98 mg/dl (65-105)
[2023-08-17] MEDS: ACETAMINOPHEN 650 MG SUPPOSITORY RECTAL (23:50)
[2023-08-18] VITALS (29 sets, daily range): BP systolic 76–137; BP diastolic 56–84; PULSE 77–132; RESP 12–30; TEMP 37.4–38.7; O2SAT 91–100
[2023-08-18] MEDS: MEROPENEM 1 GM/NS 100 ML 1 GM/100 ML BAG IVPB (02:49)
[2023-08-18 03:30] LABS: Glucose Point of Care 142 mg/dl (65-105)
[2023-08-18 04:08] LABS: Hematocrit 41.1 % (42.0-52.0); Hemoglobin 12.8 g/dL (14.0-18.0); Mean Corpuscular HGB Conc 31.1 g/dl (32-36); Mean Corpuscular Hemoglobin 31.2 pg (26-34); Mean Corpuscular Volume 100.2 fl (80-100); Mean Platelet Volume 11.1 fl (7.4-10.4); Platelet Count Result 149 k/mm3 (150-375); Red Cell Distribution Width 12.6 % (11.5-14.5); White Blood Count 16.9 K/mm3 (4.5-10.0)
[2023-08-18 04:19] LABS: Alanine Aminotransferase 47 U/L (6-50); Albumin Level 2.9 g/dL (3.5-5.1); Alkaline Phosphatase 75 U/L (38-126); Anion Gap 6 mmol/L (8-16); Aspartate Amino Transferase 34 U/L (17-59); Bilirubin,Total 0.8 mg/dL (0.2-1.3); Blood Urea Nitrogen 45 mg/dL (9-20); Calcium 9.9 mg/dL (8.4-10.2); Carbon Dioxide 25 mmol/L (22-30); Chloride 115 mmol/L (98-107); Estimated CRCL calculation 39 ml/min; Estimated Glomerular Filt Rate > 60; Glucose 123 mg/dL (65-110); Magnesium 2.3 mg/dL (1.6-2.3); Phosphorus 3.4 mg/dL (2.5-4.5); Sodium 146 mmol/L (137-145)
[2023-08-18 05:57] LABS: Alveolar/Arterial O2 Gradient 99.6 mmHg; Base Excess ABG 1.4 mEq/l (+/-2.0); Carboxyhemoglobin 0.3 % THb (0-2.0); Fractional Inspired Oxygen 30 %; HCO3 ABG 25.1 mEq/l (22.0-26.0); Methemoglobin ABG 0.4 %THb (0-1.5); Oxygen Content ABG 20.9 %vol (16.0-22.0); Oxyhemoglobin 93.4 % THb (90.0-100.0); PO2 ABG 70.8 mmHg (80.0-100.0); PO2 FiO2 Ratio Arterial Blood 2.36 %; Reduced Hemoglobin 5.9 %THb (0-5.0); Total Hemoglobin 15.9 g/dL (12.0-18.0)
[2023-08-18 05:59] LABS: Device VENTILATOR; Modified Allen's Test Pass; Site Drawn RIGHT RADIAL
[2023-08-18 06:00] LABS: Arterial Blood Gas PEEP 5 cmH2O; Arterial Blood Gas Tidal Volume 450 ml; Arterial Blood Gas Vent Mode CMV; Arterial Blood Gas Ventilator rate 12 /MIN
[2023-08-18 08:01] LABS: Glucose Point of Care 124 mg/dl (65-105)
[2023-08-18] MEDS: POTASSIUM CHLORIDE 20 MEQ PACKET (FOR LIQUID) 40 MEQ FEED TUBE ×2 (08:13→12:21)
[2023-08-18] MEDS: ATORVASTATIN 20 MG TABLET FEED TUBE (08:13)
[2023-08-18] MEDS: ASPIRIN 81 MG CHEWABLE TABLET FEED TUBE (08:13)
[2023-08-18] MEDS: ENOXAPARIN 40 MG/0.4 ML SYRINGE SUB-Q (08:13)
[2023-08-18] MEDS: PANTOPRAZOLE SODIUM IV 40 MG VIAL IV PUSH (08:13)
[2023-08-18] MEDS: DOXYCYCLINE HYCLATE 100 MG TABLET FEED TUBE ×2 (08:13→20:14)
--- NOTE | 2023-08-18 08:50 | WPDINTPN ---
Progress Note: A&P Assessment and Plan (1) Acute hypoxic respiratory failure: Code(s): J96.01 - Acute respiratory failure with hypoxia Status: Acute Assessment and Plan: Acute Respiratory failure secondary to pneumonia which could be aspiration Patient now intubated and on mechanical ventilation CT scan reviewed, chest x-ray and ABG reviewed. Vent settings reviewed. Patient is now down to 30% FiO2 and 5 of PEEP Continue full mechanical ventilation support to prevent hypoxemia/hypercarbia and end organ damage. Low tidal volume ventilation strategy to prevent volutrauma Chest x-ray appears worse. Will give Lasix Sedation holiday Continue bronchodilators Treatment of pneumonia as below (2) Sepsis: Code(s): A41.9 - Sepsis, unspecified organism Status: Acute Assessment and Plan: Sepsis secondary to pneumonia. Pneumonia could be community-acquired versus aspiration since patient has a PEG tube and is on tube feeding Blood cultures have been sent and negative till now. Pending sputum culture Nasal MRSA screen is positive Off IV fluids now Continue vancomycin meropenem and doxycycline He has not required any vasopressors (3) Acute hypernatremia: Code(s): E87.0 - Hyperosmolality and hypernatremia Status: Acute Assessment and Plan: Off D5 water now. Continue free water flushes and increased to 50 Sodium is improved Continue to monitor (4) Bilateral pneumonia: Code(s): J18.9 - Pneumonia, unspecified organism Status: Acute Assessment and Plan: See above (5) Severe protein-calorie malnutrition: Code(s): E43 - Unspecified severe protein-calorie malnutrition Status: Acute Assessment and Plan: Continue tube feedings and advance to go (6) Vascular dementia: Qualifiers: Dementia severity: severe Dementia behavioral or psychological symptom: unspecified whether behavioral, psychotic, or mood disturbance or anxiety Qualified Code(s): F01.C0 - Vascular dementia, severe, without behavioral disturbance, psychotic disturbance, mood disturbance, and anxiety Code(s): F01.50 - Vascular dementia, unspecified severity, without behavioral disturbance, psychotic disturbance, mood disturbance, and anxiety Status: Acute Assessment and Plan: Baseline vascular dementia and patient only oriented to himself Failure to thrive (7) Dysphagia: Qualifiers: Dysphagia type: unspecified Qualified Code(s): R13.10 - Dysphagia, unspecified Code(s): R13.10 - Dysphagia, unspecified Status: Acute Assessment and Plan: History of dysphagia and status post PEG tube placement (8) Electrolyte abnormality: Code(s): E87.8 - Other disorders of electrolyte and fluid balance, not elsewhere classified Status: Acute Assessment and Plan: Replace low potassium Plan DVT prophylaxis -Lovenox Stress ulcer prophylaxis -Protonix Nutrition - continue Tube Feeds Code Status - Full Code Total Critical Care Time -30 minutes Due to a high probability of clinically significant, life threatening deterioration, the patient required my highest level of preparedness to intervene emergently and I personally spent this critical care time directly and personally managing the patient. This critical care time included obtaining a history; examining the patient; pulse oximetry; ordering and review of studies; arranging urgent treatment with development of a management plan; evaluation of patient's response to treatment; frequent reassessment; and discussions with other providers. It was exclusive of separately billable procedures and treating other patients and teaching time. Please see Assessment and Plan section and the rest of the note for further information on patient assessment and treatment Subjective Date/time seen: 08/18/23 Overnight events reviewed. Low-grade fever Continues to be on mechanical v
[2023-08-18 09:17] LABS: NT Pro B Type Natriuretic Pept 733 pg/mL (19.9-100)
--- NOTE | 2023-08-18 11:03 | PCFNICU ---
ICU Rounding Note: Pt current nutrition is Vital AF 1.2 at 50 ml/hr. Nutrition recommendation: none at this time. Last recorded weight is 75.3 kg,stable. Bowel Motility:No BM to report. Labs Reviewed:Glu 123, BUN 45, Na 146, Hct 41.1,Hgb 12.8 Meds Noted: Meropenem, Vancomycin, Lovenox, Protonix, Lipitor. Skin: WNL Additional Notes: Patient current with tube feedings of Vital AF 1.2 at 50 ml/hr and tolerating per nursing. Flush increased to 250 ml q 4hours today, Na is trending down. Will monitor tube feeding tolerance at 70% needs today and recommend increasing to goal rate of 70 ml/hr tomorrow. Agree with diet orders. Following daily in ICU rounds. Will monitor weight, labs, skin, meds, tube feedings every Tuesday and Tuesday.
[2023-08-18 11:35] LABS: Glucose Point of Care 134 mg/dl (65-105)
[2023-08-18] MEDS: FUROSEMIDE INJ 40 MG/4 ML VIAL IV PUSH (12:20)
[2023-08-18] MEDS: VANCOMYCIN 1,250 MG/NS 250 ML 1,250 MG/250 ML BAG 166.67 MG IVPB (12:21)
[2023-08-18] MEDS: dexmedeTOMIDine 400 MCG/100 ML 400 MCG/100 ML BAG IV CONT (12:42)
[2023-08-18] MEDS: AMPICILLIN SULB 3 GM/NS 100 ML 3 GM/100 ML VIAL IVPB ×2 (15:39→20:12)
[2023-08-18 17:22] LABS: Anion Gap 2 mmol/L (8-16); Blood Urea Nitrogen 50 mg/dL (9-20); Calcium 9.2 mg/dL (8.4-10.2); Carbon Dioxide 26 mmol/L (22-30); Chloride 113 mmol/L (98-107); Estimated CRCL calculation 39 ml/min; Estimated Glomerular Filt Rate > 60; Glucose 159 mg/dL (65-110); Potassium 4.1 mmol/L (3.4-5.0); Sodium 141 mmol/L (137-145)
[2023-08-18 18:09] LABS: Glucose Point of Care 161 mg/dl (65-105)
[2023-08-18] MEDS: FENTANYL 2,500MCG/NS250ML(*CRX 2,500 MCG/250 ML BAG IV CONT (19:00)
[2023-08-18] MEDS: MINERAL OIL/WHITE PETROLATUM OINTMENT 1 APPLIC EACH EYE (20:21)
[2023-08-18 20:33] LABS: Glucose Point of Care 140 mg/dl (65-105)
[2023-08-19] VITALS (42 sets, daily range): BP systolic 94–144; BP diastolic 56–80; PULSE 75–164; RESP 16–28; TEMP 36.4–37.7; O2SAT 92–100
--- NOTE | 2023-08-19 | ECHO_ITS ---
Patient Info Name: Anton Fortune Age: 88 years : 1935 Gender: Male Ht: 67 in Wt: 174 lbs BSA: 1.95 m2 HR: 88 bpm BP: 105 / 60 mmHg Heart Rhythm: Sinus Rhythm Technical Quality: Fair Exam Date: 08/19/2023 11:58 AM Exam Location: Echo Lab Patient Status: Inpatient Admit Date: 08/16/2023 Staff Ordering Physician: Ronnie Griggs MD Inspection Machine Tender: Raisa Craig RDCS Attending Provider: Lynnette Claudio MD Exam Type: CA echo doppler color flow Study Info Indications - chf Complete two-dimensional, color flow and Doppler transthoracic echocardiogram is performed. Summary 1. Complete two-dimensional, color flow and Doppler transthoracic echocardiogram is performed. 2. Normal left ventricular size and overall normal systolic function with grade 1 diastolic noncompliance. 3. Mitral annular calcification. 4. Sclerotic aortic valve with good leaflet excursion. 5. Small amount of pulmonic regurgitation. Left Ventricle Left ventricular chamber dimension is normal. Left ventricular systolic function is normal, estimated at 60-65%. Left ventricular septal wall motion is abnormal with septal motion related to bundle branch block. The left ventricular diastolic function is grade I diastolic dysfunction. Right Ventricle Right ventricular chamber dimension is normal. Left Atria Left atrial chamber dimension is normal. Right Atria Right atrial chamber dimension is normal. Aortic Valve The aortic valve is trileaflet. There is mild aortic valve sclerosis. Pulmonic Valve The pulmonic valve is normal. There is mild pulmonic regurgitation. Mitral Valve The mitral valve has normal leaflets. The mitral valve annulus is mildly calcified. Tricuspid Valve The tricuspid valve leaflets are normal. Pericardium/Pleural The pericardium appears normal. Aorta The aortic root size at the sinus of Valsalva is normal. Left Ventricular Outflow Tract Name Value Normal LVOT 2D LVOT Diameter 2.1 cm LVOT Doppler LVOT Peak Gradient 1 mmHg LVOT Mean Gradient 1 mmHg LVOT VTI 14 cm LVOT VTI/AV VTI Ratio 0.6 LVOT Stroke Volume 49 ml LVOT CO 2.2 l/min LVOT CI 1.1 l/min/m2 Pulmonic Valve Name Value Normal RVOT Doppler RVOT Peak Gradient 1 mmHg PV Doppler PV Peak Gradient 1 mmHg Mitral Valve Name Value Normal MV Doppler MV Decel Cook 129 cm/s2 MV PHT
[2023-08-19 00:10] LABS: Glucose Point of Care 115 mg/dl (65-105)
--- NOTE | 2023-08-19 02:15 | ECG_ITS ---
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
[2023-08-19] MEDS: AMIODARONE 150 MG/D5W 100 ML 150 MG/100 ML BAG 600 MG IV CONT (02:30)
[2023-08-19] MEDS: AMIODARONE 360 MG/D5W 200 ML 360 MG/200 ML BAG 33.33 MG IV CONT (02:45)
[2023-08-19] MEDS: AMPICILLIN SULB 3 GM/NS 100 ML 3 GM/100 ML VIAL IVPB ×4 (03:10→20:46)
[2023-08-19 04:32] LABS: Hematocrit 36.6 % (42.0-52.0); Hemoglobin 11.7 g/dL (14.0-18.0); Mean Corpuscular Hemoglobin 30.8 pg (26-34); Mean Corpuscular Volume 96.3 fl (80-100); Mean Platelet Volume 11.5 fl (7.4-10.4); Platelet Count Result 164 k/mm3 (150-375); Red Cell Distribution Width 12.8 % (11.5-14.5); White Blood Count 14.1 K/mm3 (4.5-10.0)
[2023-08-19 04:42] LABS: Alanine Aminotransferase 34 U/L (6-50); Albumin Level 2.6 g/dL (3.5-5.1); Alkaline Phosphatase 77 U/L (38-126); Anion Gap 5 mmol/L (8-16); Aspartate Amino Transferase 26 U/L (17-59); Bilirubin,Total 0.6 mg/dL (0.2-1.3); Blood Urea Nitrogen 51 mg/dL (9-20); Calcium 9.4 mg/dL (8.4-10.2); Carbon Dioxide 26 mmol/L (22-30); Chloride 110 mmol/L (98-107); Estimated CRCL calculation 43 ml/min; Estimated Glomerular Filt Rate > 60; Glucose 152 mg/dL (65-110); Magnesium 2.1 mg/dL (1.6-2.3); Phosphorus 2.7 mg/dL (2.5-4.5); Potassium 3.4 mmol/L (3.4-5.0); Sodium 141 mmol/L (137-145)
[2023-08-19] MEDS: METOPROLOL TARTRATE INJ 5 MG/5 ML VIAL IV PUSH (05:10)
[2023-08-19 05:11] LABS: Alveolar/Arterial O2 Gradient 113.6 mmHg; Base Excess ABG 1.9 mEq/l (+/-2.0); Carboxyhemoglobin 0.3 % THb (0-2.0); Fractional Inspired Oxygen 30 %; HCO3 ABG 24.9 mEq/l (22.0-26.0); Methemoglobin ABG 0.3 %THb (0-1.5); Oxygen Saturation ABG 93.2 % (95.0-100.0); Oxyhemoglobin 90.8 % THb (90.0-100.0); PCO2 ABG 33.7 mmHg (35.0-45.0); PO2 ABG 60.7 mmHg (80.0-100.0); PO2 FiO2 Ratio Arterial Blood 2.02 %; Reduced Hemoglobin 8.6 %THb (0-5.0); Total Hemoglobin 12.5 g/dL (12.0-18.0); pH ABG 7.487 (7.350-7.450)
[2023-08-19 05:16] LABS: Arterial Blood Gas PEEP 5 cmH2O; Arterial Blood Gas Tidal Volume 450 ml; Arterial Blood Gas Vent Mode CMV; Arterial Blood Gas Ventilator rate 12 /MIN; Device VENTILATOR; Modified Allen's Test Pass; Site Drawn LEFT RADIAL
[2023-08-19 05:32] LABS: Glucose Point of Care 158 mg/dl (65-105)
--- NOTE | 2023-08-19 08:11 | WPDINTPN ---
Progress Note: A&P Assessment and Plan (1) Acute hypoxic respiratory failure: Code(s): J96.01 - Acute respiratory failure with hypoxia Status: Acute Assessment and Plan: Acute Respiratory failure secondary to pneumonia which could be aspiration Patient now intubated and on mechanical ventilation CT scan reviewed, chest x-ray and ABG reviewed. Vent settings reviewed. Patient is now down to 30% FiO2 and 5 of PEEP Continue full mechanical ventilation support to prevent hypoxemia/hypercarbia and end organ damage. Low tidal volume ventilation strategy to prevent volutrauma Chest x-ray appears worse. Will give Lasix again today Sedation holiday Continue bronchodilators Treatment of pneumonia as below (2) Sepsis: Code(s): A41.9 - Sepsis, unspecified organism Status: Acute Assessment and Plan: Sepsis secondary to pneumonia. Pneumonia could be community-acquired versus aspiration since patient has a PEG tube and is on tube feeding Blood cultures have been sent and negative till now. Pending sputum culture Nasal MRSA screen is positive Off IV fluids now Continue vancomycin Unasyn and doxycycline He has not required any vasopressors (3) Acute hypernatremia: Code(s): E87.0 - Hyperosmolality and hypernatremia Status: Acute Assessment and Plan: Off D5 water now. Continue free water flushes and increased to 50 Sodium is improved. Will decrease free water flushes now Continue to monitor (4) Bilateral pneumonia: Code(s): J18.9 - Pneumonia, unspecified organism Status: Acute Assessment and Plan: See above (5) Severe protein-calorie malnutrition: Code(s): E43 - Unspecified severe protein-calorie malnutrition Status: Acute Assessment and Plan: Continue tube feedings and advance to go (6) Vascular dementia: Qualifiers: Dementia severity: severe Dementia behavioral or psychological symptom: unspecified whether behavioral, psychotic, or mood disturbance or anxiety Qualified Code(s): F01.C0 - Vascular dementia, severe, without behavioral disturbance, psychotic disturbance, mood disturbance, and anxiety Code(s): F01.50 - Vascular dementia, unspecified severity, without behavioral disturbance, psychotic disturbance, mood disturbance, and anxiety Status: Acute Assessment and Plan: Baseline vascular dementia and patient only oriented to himself Failure to thrive (7) Dysphagia: Qualifiers: Dysphagia type: unspecified Qualified Code(s): R13.10 - Dysphagia, unspecified Code(s): R13.10 - Dysphagia, unspecified Status: Acute Assessment and Plan: History of dysphagia and status post PEG tube placement (8) Electrolyte abnormality: Code(s): E87.8 - Other disorders of electrolyte and fluid balance, not elsewhere classified Status: Acute Assessment and Plan: Replace low potassium (9) Atrial fibrillation: Code(s): I48.91 - Unspecified atrial fibrillation Status: Acute Assessment and Plan: Patient went to [facility] with [facility] last night. Patient was treated with amiodarone and metoprolol and appears to have converted to sinus rhythm. Continue to monitor. Check echo cardiac. Continue aspirin Continue anticoagulation and DVT prophylaxis does Patient is not a good candidate for long-term therapeutic anticoagulation considering advanced age and severe dementia Plan DVT prophylaxis -Lovenox Stress ulcer prophylaxis -Protonix Nutrition - continue Tube Feeds Code Status - Full Code I spoke to patient's at bedside yesterday and had long discussion regarding goals of care. Patient's states that she was considering hospice for him prior to hospitalization. I updated her with patient's current status including sepsis pneumonia respiratory failure electrolyte abnormalities. She does want patient to stay full code at this time. She told me that she will discuss
[2023-08-19] MEDS: ASPIRIN 81 MG CHEWABLE TABLET FEED TUBE (09:27)
[2023-08-19] MEDS: ATORVASTATIN 20 MG TABLET FEED TUBE (09:28)
[2023-08-19] MEDS: ENOXAPARIN 40 MG/0.4 ML SYRINGE SUB-Q (09:28)
[2023-08-19] MEDS: POTASSIUM CHLORIDE 20 MEQ PACKET (FOR LIQUID) 40 MEQ FEED TUBE (09:28)
[2023-08-19] MEDS: DOXYCYCLINE HYCLATE 100 MG TABLET FEED TUBE ×2 (09:28→20:46)
[2023-08-19] MEDS: FUROSEMIDE INJ 40 MG/4 ML VIAL IV PUSH (09:29)
[2023-08-19] MEDS: PANTOPRAZOLE SODIUM IV 40 MG VIAL IV PUSH (09:30)
[2023-08-19] MEDS: MINERAL OIL/WHITE PETROLATUM OINTMENT 1 APPLIC EACH EYE ×2 (09:30→20:46)
--- NOTE | 2023-08-19 10:11 | PM.IMPN ---
Progress Note: A&P Assessment and Plan (1) Acute hypoxic respiratory failure: Code(s): J96.01 - Acute respiratory failure with hypoxia Status: Acute Assessment and Plan: Acute Respiratory failure secondary to pneumonia which could be aspiration Patient now intubated and on mechanical ventilation CT scan reviewed, chest x-ray and ABG reviewed. Vent settings reviewed. Patient is now down to 30% FiO2 and 5 of PEEP Continue full mechanical ventilation support to prevent hypoxemia/hypercarbia and end organ damage. Low tidal volume ventilation strategy to prevent volutrauma Chest x-ray appears worse. Will give Lasix again today Sedation holiday Continue bronchodilators Treatment of pneumonia as below (2) Sepsis: Code(s): A41.9 - Sepsis, unspecified organism Status: Acute Assessment and Plan: Sepsis secondary to pneumonia. Pneumonia could be community-acquired versus aspiration since patient has a PEG tube and is on tube feeding Blood cultures have been sent and negative till now. Pending sputum culture Nasal MRSA screen is positive Off IV fluids now Continue vancomycin Unasyn and doxycycline He has not required any vasopressors (3) Acute hypernatremia: Code(s): E87.0 - Hyperosmolality and hypernatremia Status: Acute Assessment and Plan: Off D5 water now. Continue free water flushes and increased to 50 Sodium is improved. Will decrease free water flushes now Continue to monitor (4) Bilateral pneumonia: Code(s): J18.9 - Pneumonia, unspecified organism Status: Acute Assessment and Plan: See above (5) Severe protein-calorie malnutrition: Code(s): E43 - Unspecified severe protein-calorie malnutrition Status: Acute Assessment and Plan: Continue tube feedings and advance to go (6) Vascular dementia: Qualifiers: Dementia behavioral or psychological symptom: unspecified whether behavioral, psychotic, or mood disturbance or anxiety Dementia severity: severe Qualified Code(s): F01.C0 - Vascular dementia, severe, without behavioral disturbance, psychotic disturbance, mood disturbance, and anxiety Code(s): F01.50 - Vascular dementia, unspecified severity, without behavioral disturbance, psychotic disturbance, mood disturbance, and anxiety Status: Acute Assessment and Plan: Baseline vascular dementia and patient only oriented to himself Failure to thrive (7) Dysphagia: Qualifiers: Dysphagia type: unspecified Qualified Code(s): R13.10 - Dysphagia, unspecified Code(s): R13.10 - Dysphagia, unspecified Status: Acute Assessment and Plan: History of dysphagia and status post PEG tube placement (8) Electrolyte abnormality: Code(s): E87.8 - Other disorders of electrolyte and fluid balance, not elsewhere classified Status: Acute Assessment and Plan: Replace low potassium (9) Atrial fibrillation: Code(s): I48.91 - Unspecified atrial fibrillation Status: Acute Assessment and Plan: Patient went to [facility] with [facility] last night. Patient was treated with amiodarone and metoprolol and appears to have converted to sinus rhythm. Continue to monitor. Check echo cardiac. Continue aspirin Continue anticoagulation and DVT prophylaxis does Patient is not a good candidate for long-term therapeutic anticoagulation considering advanced age and severe dementia Subjective Date/time seen: 08/19/23 10:11 Interval history: I saw and examined patient today in presents of patient's , patient was on mechanical ventilation, without sedation, patient was opening eyes, Patient has fever overnight, the has had temperature 101.4. Labs reviewed. Patient leukocytosis [id number] with left shift and hypernatremia has resolved, sodium 141 Exam Narrative: General: Pt is sedated, intubated and on mechanical ventilation Lungs/Chest: Trachea central Coarse BS B/L, No mantel craftsman
[2023-08-19] MEDS: LIDOCAINE HCL 1% PF INJ 5 ML VIAL INFILTRATE (10:20)
--- NOTE | 2023-08-19 10:28 | PCNFU ---
Nutrition Follow-Up Complete: Unintended weight loss as related to decreased ability to consume sufficient energy as related to 8% (15 ibs) weight loss, in 3 weeks. Goal: Meet estimated nutritional needs. Patient is progressing towards goal. We will continue current goal. Pt current nutrition is Vital AF 1.2 at 50 ml/hr . Nutrition recommendation: 70 ml/hr Last recorded weight is 79 kg, up from 75.3 kg on admit. Bowel Motility:+Bm reported 08/19 Labs Reviewed:Glu 152, BUN 51, Alb 2.6,Hct 36.6,Hgb 11.7 Meds Noted:Lipitor, Lovenox, Meropenem, Protonix, Precedex, Fentanyl. Skin: WNL Additional Notes: Patient remains on mechanical vent and tube feedings of Vital AF 1.2 at 50 ml/hr and tolerating. Spoke with Musical Instruments Assembler today regarding rate change. Recommend increasing to goal rate of 70 ml/hr. Orders changed per MD. Total Nutrition: 1848 kcals/116 gms protein/1249 ml water. Meeting 98% kcal needs at 25 kcal/kg and 100% protein needs at 1.4-1.6 gm/kg. Flush decreased to 100 ml q 4 hours from 250 ml. Agree with diet orders. Will monitor weight, labs, skin, meds, tube feedings every Tuesday and Tuesday.
[2023-08-19 11:54] LABS: Glucose Point of Care 155 mg/dl (65-105)
[2023-08-19] MEDS: CENTRAL LINE FLUSH 10 ML IV PUSH ×2 (15:42→20:51)
[2023-08-19] MEDS: dexmedeTOMIDine 400 MCG/100 ML 400 MCG/100 ML BAG 7.53 MCG IV CONT (15:45)
[2023-08-19 18:29] LABS: Glucose Point of Care 169 mg/dl (65-105)
[2023-08-20] VITALS (32 sets, daily range): BP systolic 96–118; BP diastolic 55–71; PULSE 61–103; RESP 16–27; TEMP 36.4–37.4; O2SAT 96–100
[2023-08-20 00:51] LABS: Glucose Point of Care 181 mg/dl (65-105)
[2023-08-20 01:38] LABS: Vancomycin Trough 9.4 ug/mL (10.0-20.0)
[2023-08-20] MEDS: VANCOMYCIN 1,250 MG/NS 250 ML 1,250 MG/250 ML BAG 166.67 MG IVPB (02:07)
[2023-08-20] MEDS: AMPICILLIN SULB 3 GM/NS 100 ML 3 GM/100 ML VIAL IVPB ×4 (03:44→20:37)
[2023-08-20] MEDS: dexmedeTOMIDine 400 MCG/100 ML 400 MCG/100 ML BAG 7.53 MCG IV CONT (05:05)
[2023-08-20] MEDS: CENTRAL LINE FLUSH 10 ML IV PUSH ×3 (05:08→20:38)
[2023-08-20 05:31] LABS: Hematocrit 30.9 % (42.0-52.0); Hemoglobin 9.9 g/dL (14.0-18.0); Mean Corpuscular Hemoglobin 30.8 pg (26-34); Mean Corpuscular Volume 96.3 fl (80-100); Mean Platelet Volume 11.5 fl (7.4-10.4); Platelet Count Result 172 k/mm3 (150-375); Red Blood Count 3.21 M/mm3 (4.6-6.20); Red Cell Distribution Width 12.4 % (11.5-14.5); White Blood Count 8.9 K/mm3 (4.5-10.0)
[2023-08-20 05:43] LABS: Alanine Aminotransferase 35 U/L (6-50); Albumin Level 2.4 g/dL (3.5-5.1); Alkaline Phosphatase 99 U/L (38-126); Anion Gap 2 mmol/L (8-16); Aspartate Amino Transferase 26 U/L (17-59); Bilirubin,Total 0.4 mg/dL (0.2-1.3); Blood Urea Nitrogen 55 mg/dL (9-20); Calcium 9.2 mg/dL (8.4-10.2); Carbon Dioxide 30 mmol/L (22-30); Chloride 110 mmol/L (98-107); Estimated CRCL calculation 39 ml/min; Estimated Glomerular Filt Rate > 60; Glucose 163 mg/dL (65-110); Phosphorus 3.1 mg/dL (2.5-4.5); Sodium 142 mmol/L (137-145)
[2023-08-20 05:58] LABS: Alveolar/Arterial O2 Gradient 94.7 mmHg; Base Excess ABG 1.9 mEq/l (+/-2.0); Carboxyhemoglobin 0.1 % THb (0-2.0); Device VENTILATOR; Fractional Inspired Oxygen 30 %; HCO3 ABG 25.6 mEq/l (22.0-26.0); Methemoglobin ABG 0.4 %THb (0-1.5); Modified Allen's Test Unable to perform; Oxygen Content ABG 19.3 %vol (16.0-22.0); Oxygen Saturation ABG 95.8 % (95.0-100.0); Oxyhemoglobin 94.4 % THb (90.0-100.0); PCO2 ABG 37.2 mmHg (35.0-45.0); PO2 ABG 75.5 mmHg (80.0-100.0); PO2 FiO2 Ratio Arterial Blood 2.52 %; Reduced Hemoglobin 5.1 %THb (0-5.0); Site Drawn RIGHT RADIAL; Total Hemoglobin 14.5 g/dL (12.0-18.0); pH ABG 7.455 (7.350-7.450)
[2023-08-20 05:59] LABS: Arterial Blood Gas PEEP 5 cmH2O; Arterial Blood Gas Tidal Volume 450 ml; Arterial Blood Gas Vent Mode CMV; Arterial Blood Gas Ventilator rate 12 /MIN
[2023-08-20] MEDS: DOXYCYCLINE HYCLATE 100 MG TABLET FEED TUBE ×2 (08:54→20:37)
[2023-08-20] MEDS: MINERAL OIL/WHITE PETROLATUM OINTMENT 1 APPLIC EACH EYE ×2 (08:54→20:38)
[2023-08-20] MEDS: PANTOPRAZOLE SODIUM IV 40 MG VIAL IV PUSH (08:54)
[2023-08-20] MEDS: ENOXAPARIN 40 MG/0.4 ML SYRINGE SUB-Q (08:54)
[2023-08-20] MEDS: BUMETANIDE INJ 1 MG/4 ML VIAL IV PUSH ×2 (08:55→16:58)
[2023-08-20] MEDS: ATORVASTATIN 20 MG TABLET FEED TUBE (08:55)
[2023-08-20] MEDS: POTASSIUM CHLORIDE 20 MEQ PACKET (FOR LIQUID) 40 MEQ FEED TUBE ×2 (08:55→15:10)
[2023-08-20] MEDS: ASPIRIN 81 MG CHEWABLE TABLET FEED TUBE (08:55)
[2023-08-20] MEDS: ALBUMIN HUMAN 25% 25 GM/100 ML 100 ML IVPB ×2 (08:55→16:57)
--- NOTE | 2023-08-20 09:56 | PCPTNOTE ---
Attempted PT evaluation, pt does not follow any commands and family not present for caregiver education. Pt is a poor candidate for physical therapy given his history of dementia and current medical situation. RN aware.
--- NOTE | 2023-08-20 10:34 | WPDINTPN ---
Progress Note: A&P Assessment and Plan (1) Acute hypoxic respiratory failure: Code(s): J96.01 - Acute respiratory failure with hypoxia Status: Acute Assessment and Plan: Acute Respiratory failure secondary to pneumonia which could be aspiration Patient now intubated and on mechanical ventilation CT scan reviewed, chest x-ray and ABG reviewed. Vent settings reviewed. Patient is now down to 30% FiO2 and 5 of PEEP Continue full mechanical ventilation support to prevent hypoxemia/hypercarbia and end organ damage. Low tidal volume ventilation strategy to prevent volutrauma Chest x-ray appears worse. Will continue diuretics Sedation holiday done. Weaning trial done on 11/05 PSV patient developed respiratory distress with increased work of breathing abdominal breathing. PSV was changed to 04/07 and will be continues as long as he tolerates. Not ready for extubation at this time Continue bronchodilators Treatment of pneumonia as below (2) Sepsis: Code(s): A41.9 - Sepsis, unspecified organism Status: Acute Assessment and Plan: Sepsis secondary to pneumonia. Pneumonia could be community-acquired versus aspiration since patient has a PEG tube and is on tube feeding Blood cultures have been sent and negative till now. Pending sputum culture Nasal MRSA screen is positive Off IV fluids now Continue Unasyn and doxycycline. Discontinue vancomycin He has not required any vasopressors (3) Acute hypernatremia: Code(s): E87.0 - Hyperosmolality and hypernatremia Status: Acute Assessment and Plan: Off D5 water now. Continue free water flushes and increased to 50 Sodium is improved. Continue current free water flushes now Continue to monitor (4) Bilateral pneumonia: Code(s): J18.9 - Pneumonia, unspecified organism Status: Acute Assessment and Plan: See above (5) Severe protein-calorie malnutrition: Code(s): E43 - Unspecified severe protein-calorie malnutrition Status: Acute Assessment and Plan: Continue tube feedings and advance to go (6) Vascular dementia: Qualifiers: Dementia severity: severe Dementia behavioral or psychological symptom: unspecified whether behavioral, psychotic, or mood disturbance or anxiety Qualified Code(s): F01.C0 - Vascular dementia, severe, without behavioral disturbance, psychotic disturbance, mood disturbance, and anxiety Code(s): F01.50 - Vascular dementia, unspecified severity, without behavioral disturbance, psychotic disturbance, mood disturbance, and anxiety Status: Acute Assessment and Plan: Baseline vascular dementia and patient only oriented to himself Failure to thrive (7) Dysphagia: Qualifiers: Dysphagia type: unspecified Qualified Code(s): R13.10 - Dysphagia, unspecified Code(s): R13.10 - Dysphagia, unspecified Status: Acute Assessment and Plan: History of dysphagia and status post PEG tube placement (8) Electrolyte abnormality: Code(s): E87.8 - Other disorders of electrolyte and fluid balance, not elsewhere classified Status: Acute Assessment and Plan: Replace low potassium (9) Atrial fibrillation: Code(s): I48.91 - Unspecified atrial fibrillation Status: Acute Assessment and Plan: Patient went to [facility] with [facility] last night. Patient was treated with amiodarone and metoprolol and appears to have converted to sinus rhythm. Continue to monitor. Check echo cardiac. Continue aspirin Continue anticoagulation and DVT prophylaxis does Patient is not a good candidate for long-term therapeutic anticoagulation considering advanced age and severe dementia Plan DVT prophylaxis -Lovenox Stress ulcer prophylaxis -Protonix Nutrition - continue Tube Feeds Code Status - Full Code Total Critical Care Time -30 minutes Due to a high probability of clinically significant, life threatening deterioration, the danie
[2023-08-20 11:42] LABS: Glucose Point of Care 124 mg/dl (65-105)
[2023-08-20] MEDS: dexmedeTOMIDine 400 MCG/100 ML 400 MCG/100 ML BAG 13.18 MCG IV CONT (16:57)
[2023-08-20 18:16] LABS: Glucose Point of Care 134 mg/dl (65-105)
[2023-08-21] VITALS (42 sets, daily range): BP systolic 97–152; BP diastolic 53–88; PULSE 52–76; RESP 16–29; TEMP 37.1–37.6; O2SAT 95–100
[2023-08-21 00:12] LABS: Glucose Point of Care 152 mg/dl (65-105)
[2023-08-21] MEDS: dexmedeTOMIDine 400 MCG/100 ML 400 MCG/100 ML BAG 13.18 MCG IV CONT ×2 (00:17→08:53)
[2023-08-21] MEDS: AMPICILLIN SULB 3 GM/NS 100 ML 3 GM/100 ML VIAL IVPB ×4 (05:03→20:39)
[2023-08-21] MEDS: CENTRAL LINE FLUSH 10 ML IV PUSH ×3 (05:04→21:01)
[2023-08-21 05:06] LABS: Hematocrit 28.6 % (42.0-52.0); Hemoglobin 9.2 g/dL (14.0-18.0); Mean Corpuscular HGB Conc 32.2 g/dl (32-36); Mean Corpuscular Hemoglobin 30.8 pg (26-34); Mean Corpuscular Volume 95.7 fl (80-100); Mean Platelet Volume 10.8 fl (7.4-10.4); Platelet Count Result 158 k/mm3 (150-375); Red Blood Count 2.99 M/mm3 (4.6-6.20); Red Cell Distribution Width 12.6 % (11.5-14.5); White Blood Count 6.8 K/mm3 (4.5-10.0)
[2023-08-21 05:19] LABS: Alanine Aminotransferase 57 U/L (6-50); Albumin Level 2.9 g/dL (3.5-5.1); Alkaline Phosphatase 82 U/L (38-126); Anion Gap 3 mmol/L (8-16); Aspartate Amino Transferase 52 U/L (17-59); Bilirubin,Total 0.5 mg/dL (0.2-1.3); Blood Urea Nitrogen 54 mg/dL (9-20); Calcium 9.5 mg/dL (8.4-10.2); Carbon Dioxide 31 mmol/L (22-30); Chloride 110 mmol/L (98-107); Estimated CRCL calculation 39 ml/min; Estimated Glomerular Filt Rate > 60; Glucose 140 mg/dL (65-110); Phosphorus 3.6 mg/dL (2.5-4.5); Potassium 3.4 mmol/L (3.4-5.0); Sodium 144 mmol/L (137-145)
[2023-08-21 05:33] LABS: Alveolar/Arterial O2 Gradient 79.9 mmHg; Base Excess ABG 4.8 mEq/l (+/-2.0); Carboxyhemoglobin 0.2 % THb (0-2.0); Fractional Inspired Oxygen 30 %; HCO3 ABG 28.7 mEq/l (22.0-26.0); Methemoglobin ABG 0.6 %THb (0-1.5); Oxygen Content ABG 7.7 %vol (16.0-22.0); Oxygen Saturation ABG 97.3 % (95.0-100.0); PO2 ABG 88.2 mmHg (80.0-100.0); PO2 FiO2 Ratio Arterial Blood 2.94 %; Reduced Hemoglobin 4.2 %THb (0-5.0); pH ABG 7.485 (7.350-7.450)
[2023-08-21 05:35] LABS: Device VENTILATOR; Modified Allen's Test Pass; Site Drawn RIGHT RADIAL; Total Hemoglobin 5.6 g/dL (12.0-18.0)
[2023-08-21 05:37] LABS: Arterial Blood Gas PEEP 5 cmH2O; Arterial Blood Gas Tidal Volume 400 ml; Arterial Blood Gas Vent Mode CMV; Arterial Blood Gas Ventilator rate 12 /MIN
[2023-08-21] MEDS: ASPIRIN 81 MG CHEWABLE TABLET FEED TUBE (08:54)
[2023-08-21] MEDS: DOXYCYCLINE HYCLATE 100 MG TABLET FEED TUBE ×2 (08:54→20:39)
[2023-08-21] MEDS: BUMETANIDE INJ 1 MG/4 ML VIAL IV PUSH ×2 (08:54→16:29)
[2023-08-21] MEDS: PANTOPRAZOLE SODIUM IV 40 MG VIAL IV PUSH (08:54)
[2023-08-21] MEDS: ALBUMIN HUMAN 25% 25 GM/100 ML 100 ML IVPB ×2 (08:54→16:29)
[2023-08-21] MEDS: ATORVASTATIN 20 MG TABLET FEED TUBE (08:54)
[2023-08-21] MEDS: ENOXAPARIN 40 MG/0.4 ML SYRINGE SUB-Q (08:55)
[2023-08-21] MEDS: MINERAL OIL/WHITE PETROLATUM OINTMENT 1 APPLIC EACH EYE ×2 (08:55→20:39)
--- NOTE | 2023-08-21 09:11 | WPDINTPN ---
Progress Note: A&P Assessment and Plan (1) Acute hypoxic respiratory failure: Code(s): J96.01 - Acute respiratory failure with hypoxia Status: Acute Assessment and Plan: Acute Respiratory failure secondary to pneumonia which could be aspiration Patient now intubated and on mechanical ventilation CT scan reviewed Continue full mechanical ventilation support to prevent hypoxemia/hypercarbia and end organ damage. Low tidal volume ventilation strategy to prevent volutrauma Chest x-ray reviewed 08/19 and 08/20 Sedation holiday done. Weaning trial done on 11/05 PSV patient developed respiratory distress with increased work of breathing abdominal breathing. PSV was changed to 04/07 and will be continued for few hours which he tolerated. 08/21 will attempt sedation holiday and weaning trial again today ABG reviewed. Decrease tidal volume 360 mL Continue Bumex Continue bronchodilators Treatment of pneumonia as below (2) Sepsis: Code(s): A41.9 - Sepsis, unspecified organism Status: Acute Assessment and Plan: Sepsis secondary to pneumonia. Pneumonia could be community-acquired versus aspiration since patient has a PEG tube and is on tube feeding Blood cultures have been sent and negative till now. Sputum culture is growing MRSA Nasal MRSA screen is positive Off IV fluids now Continue vancomycin Unasyn and doxycycline. He has not required any vasopressors (3) Acute hypernatremia: Code(s): E87.0 - Hyperosmolality and hypernatremia Status: Acute Assessment and Plan: Off D5 water now. Continue free water flushes and increased to 50 Sodium is improved. Continue current free water flushes now Continue to monitor (4) Bilateral pneumonia: Code(s): J18.9 - Pneumonia, unspecified organism Status: Acute Assessment and Plan: See above (5) Severe protein-calorie malnutrition: Code(s): E43 - Unspecified severe protein-calorie malnutrition Status: Acute Assessment and Plan: Continue tube feedings and advance to go (6) Vascular dementia: Qualifiers: Dementia severity: severe Dementia behavioral or psychological symptom: unspecified whether behavioral, psychotic, or mood disturbance or anxiety Qualified Code(s): F01.C0 - Vascular dementia, severe, without behavioral disturbance, psychotic disturbance, mood disturbance, and anxiety Code(s): F01.50 - Vascular dementia, unspecified severity, without behavioral disturbance, psychotic disturbance, mood disturbance, and anxiety Status: Acute Assessment and Plan: Baseline vascular dementia and patient only oriented to himself Failure to thrive (7) Dysphagia: Qualifiers: Dysphagia type: unspecified Qualified Code(s): R13.10 - Dysphagia, unspecified Code(s): R13.10 - Dysphagia, unspecified Status: Acute Assessment and Plan: History of dysphagia and status post PEG tube placement (8) Electrolyte abnormality: Code(s): E87.8 - Other disorders of electrolyte and fluid balance, not elsewhere classified Status: Acute Assessment and Plan: Replace low potassium (9) Atrial fibrillation: Code(s): I48.91 - Unspecified atrial fibrillation Status: Acute Assessment and Plan: Patient went to [facility] with RVR last night. Patient was treated with amiodarone and metoprolol and appears to have converted to sinus rhythm. Continue to monitor. Check echo cardiac. Continue aspirin Continue anticoagulation and DVT prophylaxis does Patient is not a good candidate for long-term therapeutic anticoagulation considering advanced age and severe dementia Plan DVT prophylaxis -Lovenox Stress ulcer prophylaxis -Protonix Nutrition - continue Tube Feeds, remove OG tube Code Status - Full Code Total Critical Care Time -32 minutes Due to a high probability of clinically significant, life threatening deterioration, the patient requ
--- NOTE | 2023-08-21 09:25 | PCPTNOTE ---
Attempted PT evaluation, pt not able to follow commands to participate in skilled therapy and family not present for caregiver training. Pt continues to not be appropriate for skilled therapy at this time. Please re-order when pt is able to participate in skilled therapy. RN aware.
[2023-08-21] MEDS: VANCOMYCIN 1,500 MG/NS 500 ML 1,500 MG/500 ML BAG 250 MG IVPB (11:40)
[2023-08-21 11:51] LABS: Glucose Point of Care 127 mg/dl (65-105)
[2023-08-21] MEDS: dexmedeTOMIDine 400 MCG/100 ML 400 MCG/100 ML BAG 11.3 MCG IV CONT (16:30)
[2023-08-21 18:10] LABS: Glucose Point of Care 140 mg/dl (65-105)
[2023-08-22] VITALS (23 sets, daily range): BP systolic 121–155; BP diastolic 57–67; PULSE 51–92; RESP 12–22; TEMP 36.9–37.7; O2SAT 94–100
[2023-08-22 00:06] LABS: Glucose Point of Care 128 mg/dl (65-105)
[2023-08-22] MEDS: dexmedeTOMIDine 400 MCG/100 ML 400 MCG/100 ML BAG 9.41 MCG IV CONT (02:16)
[2023-08-22] MEDS: AMPICILLIN SULB 3 GM/NS 100 ML 3 GM/100 ML VIAL IVPB ×4 (03:13→20:22)
[2023-08-22 04:13] LABS: Hematocrit 26.8 % (42.0-52.0); Hemoglobin 8.7 g/dL (14.0-18.0); Mean Corpuscular HGB Conc 32.5 g/dl (32-36); Mean Corpuscular Hemoglobin 31.1 pg (26-34); Mean Corpuscular Volume 95.7 fl (80-100); Mean Platelet Volume 10.8 fl (7.4-10.4); Platelet Count Result 153 k/mm3 (150-375); Red Cell Distribution Width 12.5 % (11.5-14.5); White Blood Count 6.4 K/mm3 (4.5-10.0)
[2023-08-22 04:23] LABS: Alanine Aminotransferase 71 U/L (6-50); Albumin Level 2.9 g/dL (3.5-5.1); Alkaline Phosphatase 78 U/L (38-126); Anion Gap 3 mmol/L (8-16); Aspartate Amino Transferase 59 U/L (17-59); Bilirubin,Total 0.5 mg/dL (0.2-1.3); Blood Urea Nitrogen 51 mg/dL (9-20); Calcium 9.6 mg/dL (8.4-10.2); Carbon Dioxide 33 mmol/L (22-30); Chloride 107 mmol/L (98-107); Estimated CRCL calculation 43 ml/min; Estimated Glomerular Filt Rate > 60; Glucose 147 mg/dL (65-110); Magnesium 1.9 mg/dL (1.6-2.3); Phosphorus 3.2 mg/dL (2.5-4.5); Potassium 2.9 mmol/L (3.4-5.0); Sodium 143 mmol/L (137-145)
[2023-08-22 05:37] LABS: Alveolar/Arterial O2 Gradient 86.6 mmHg; Carboxyhemoglobin 0.3 % THb (0-2.0); Fractional Inspired Oxygen 30 %; HCO3 ABG 27.3 mEq/l (22.0-26.0); Methemoglobin ABG 0.4 %THb (0-1.5); Oxygen Content ABG 17.5 %vol (16.0-22.0); Oxyhemoglobin 95.3 % THb (90.0-100.0); PCO2 ABG 36.7 mmHg (35.0-45.0); PO2 ABG 84.2 mmHg (80.0-100.0); PO2 FiO2 Ratio Arterial Blood 2.81 %
[2023-08-22 05:39] LABS: Device VENTILATOR; Modified Allen's Test Pass; Site Drawn LEFT RADIAL
[2023-08-22 05:40] LABS: Arterial Blood Gas PEEP 5 cmH2O; Arterial Blood Gas Tidal Volume 360 ml; Arterial Blood Gas Vent Mode CMV; Arterial Blood Gas Ventilator rate 12 /MIN
[2023-08-22] MEDS: CENTRAL LINE FLUSH 10 ML IV PUSH ×3 (06:34→20:23)
[2023-08-22 08:52] LABS: Alveolar/Arterial O2 Gradient 91.8 mmHg; Base Excess ABG 4.7 mEq/l (+/-2.0); Fractional Inspired Oxygen 30 %; HCO3 ABG 27.8 mEq/l (22.0-26.0); Oxygen Content ABG 13.5 %vol (16.0-22.0); Oxygen Saturation ABG 96.9 % (95.0-100.0); Oxyhemoglobin 94.1 % THb (90.0-100.0); PCO2 ABG 35.5 mmHg (35.0-45.0); PO2 ABG 80.4 mmHg (80.0-100.0); PO2 FiO2 Ratio Arterial Blood 2.68 %; Total Hemoglobin 10.1 g/dL (12.0-18.0)
[2023-08-22 08:53] LABS: Device VENTILATOR; Modified Allen's Test Pass; Site Drawn RIGHT RADIAL; pH ABG 7.512 (7.350-7.450)
[2023-08-22 08:55] LABS: Arterial Blood Gas PEEP 5 cmH2O; Arterial Blood Gas Pressure Support 5 cmH2O; Arterial Blood Gas Vent Mode SPONTANEOUS
--- NOTE | 2023-08-22 09:06 | WPDINTPN ---
Progress Note: A&P Assessment and Plan (1) Acute hypoxic respiratory failure: Code(s): J96.01 - Acute respiratory failure with hypoxia Status: Acute Assessment and Plan: Acute Respiratory failure secondary to pneumonia which could be aspiration Patient now intubated and on mechanical ventilation CT scan reviewed Continue full mechanical ventilation support to prevent hypoxemia/hypercarbia and end organ damage. Low tidal volume ventilation strategy to prevent volutrauma Chest x-ray reviewed 08/19 and 08/20 Sedation holiday done. Weaning trial done on 11/05 PSV patient developed respiratory distress with increased work of breathing abdominal breathing. PSV was changed to 04/07 and will be continued for few hours which he tolerated. 08/21 will attempt sedation holiday and weaning trial again today ABG reviewed. 08/21 11/05 PSV SBT done for more than 30 minutes. RSBI, ABGI and Vitals acceptable. Pt awake. He does not follow commands but this could be his baseline due to advanced dementia. Will extubate and monitor. NPO for now. Bipap PRN Continue Bumex Continue bronchodilators Treatment of pneumonia as below (2) Sepsis: Code(s): A41.9 - Sepsis, unspecified organism Status: Acute Assessment and Plan: Sepsis secondary to pneumonia. Pneumonia could be community-acquired versus aspiration since patient has a PEG tube and is on tube feeding Blood cultures have been sent and negative till now. Sputum culture is growing MRSA Nasal MRSA screen is positive Off IV fluids now Continue vancomycin Unasyn and doxycycline. He has not required any vasopressors (3) Acute hypernatremia: Code(s): E87.0 - Hyperosmolality and hypernatremia Status: Acute Assessment and Plan: Off D5 water now. Continue free water flushes and increased to 50 Sodium is improved. Continue current free water flushes now Continue to monitor (4) Bilateral pneumonia: Code(s): J18.9 - Pneumonia, unspecified organism Status: Acute Assessment and Plan: See above (5) Severe protein-calorie malnutrition: Code(s): E43 - Unspecified severe protein-calorie malnutrition Status: Acute Assessment and Plan: Continue tube feedings and advance to go (6) Vascular dementia: Qualifiers: Dementia severity: severe Dementia behavioral or psychological symptom: unspecified whether behavioral, psychotic, or mood disturbance or anxiety Qualified Code(s): F01.C0 - Vascular dementia, severe, without behavioral disturbance, psychotic disturbance, mood disturbance, and anxiety Code(s): F01.50 - Vascular dementia, unspecified severity, without behavioral disturbance, psychotic disturbance, mood disturbance, and anxiety Status: Acute Assessment and Plan: Baseline vascular dementia and patient only oriented to himself Failure to thrive (7) Dysphagia: Qualifiers: Dysphagia type: unspecified Qualified Code(s): R13.10 - Dysphagia, unspecified Code(s): R13.10 - Dysphagia, unspecified Status: Acute Assessment and Plan: History of dysphagia and status post PEG tube placement (8) Electrolyte abnormality: Code(s): E87.8 - Other disorders of electrolyte and fluid balance, not elsewhere classified Status: Acute Assessment and Plan: Replace low potassium (9) Atrial fibrillation: Code(s): I48.91 - Unspecified atrial fibrillation Status: Acute Assessment and Plan: Patient went to [facility] with [facility] last night. Patient was treated with amiodarone and metoprolol and appears to have converted to sinus rhythm. Continue to monitor. Continue aspirin Continue anticoagulation and DVT prophylaxis does Patient is not a good candidate for long-term therapeutic anticoagulation considering advanced age and severe dementia Echo summary ? 1. Complete two-dimensional, color flow and Doppler transthoracic echocardiogram is performed. ?
[2023-08-22] MEDS: POTASSIUM CHLORIDE 20 MEQ PACKET (FOR LIQUID) 40 MEQ FEED TUBE ×3 (09:14→15:45)
[2023-08-22] MEDS: ASPIRIN 81 MG CHEWABLE TABLET FEED TUBE (09:14)
[2023-08-22] MEDS: ATORVASTATIN 20 MG TABLET FEED TUBE (09:14)
[2023-08-22] MEDS: ENOXAPARIN 40 MG/0.4 ML SYRINGE SUB-Q (09:20)
[2023-08-22] MEDS: PANTOPRAZOLE SODIUM IV 40 MG VIAL IV PUSH (09:20)
--- NOTE | 2023-08-22 10:56 | PCFNICU ---
ICU Rounding Note: Pt current nutrition is Vital AF 1.2 at 70 ml/hr . Nutrition recommendation: Jevity 1.5 at 60 ml/hr Last recorded weight is 79.9 kg, up from 75.3 kg on admit. Bowel Motility: +BM reported 08/22 Labs Reviewed:Glu 147, BUN 51, K 2.9,Hct 26.8,Hgb 8.7 Meds Noted:Lipitor, Protonix, Lovenox Skin: WNL Additional Notes: Patient has been extubated. Tube feeding formula changed to standard formula of Jevity 1.5 at 60ml/hr. Tube feedings providing 1980 kcals/84 gms protein/1003 ml water. Flush 100 ml q 4 hours. Tube feedings meeting 100% kcal and protein needs at 25 kcal/kg and 1.0-1.2 gm/kg protein. Agree with diet orders. Following daily in ICU rounds. Will monitor weight, labs, skin, meds, tube feedings every Tuesday and Tuesday.
[2023-08-22 11:37] LABS: Glucose Point of Care 82 mg/dl (65-105)
[2023-08-22] MEDS: VANCOMYCIN 1,500 MG/NS 500 ML 1,500 MG/500 ML BAG 250 MG IVPB (11:57)
--- NOTE | 2023-08-22 15:27 | PM.IMPN ---
Progress Note: A&P Assessment and Plan (1) Atrial fibrillation: Code(s): I48.91 - Unspecified atrial fibrillation Status: Acute (2) Electrolyte abnormality: Code(s): E87.8 - Other disorders of electrolyte and fluid balance, not elsewhere classified Status: Acute (3) Acute hypernatremia: Code(s): E87.0 - Hyperosmolality and hypernatremia Status: Acute (4) CAROLYNN (acute kidney injury): Code(s): N17.9 - Acute kidney failure, unspecified Status: Acute (5) Bilateral pneumonia: Code(s): J18.9 - Pneumonia, unspecified organism Status: Acute (6) Acute hypoxic respiratory failure: Code(s): J96.01 - Acute respiratory failure with hypoxia Status: Acute (7) Sepsis: Code(s): A41.9 - Sepsis, unspecified organism Status: Acute (8) Severe protein-calorie malnutrition: Code(s): E43 - Unspecified severe protein-calorie malnutrition Status: Acute (9) Essential hypertension: Code(s): I10 - Essential (primary) hypertension Status: Acute (10) Encephalopathy acute: Code(s): G93.40 - Encephalopathy, unspecified Status: Acute (11) Altered mental status: Qualifiers: Altered mental status type: unspecified Qualified Code(s): R41.82 - Altered mental status, unspecified Code(s): R41.82 - Altered mental status, unspecified Status: Acute Plan (1) Acute hypoxic respiratory failure: ?Code(s): J96.01 - Acute respiratory failure with hypoxia ?Status:?Acute ?Assessment and Plan: Acute Respiratory failure secondary to pneumonia which could be aspiration Patient now intubated and on mechanical ventilation CT scan reviewed Continue full mechanical ventilation support to prevent hypoxemia/hypercarbia and end organ damage. Low tidal volume ventilation strategy to prevent volutrauma Chest x-ray reviewed 08/19 and 08/20 Sedation holiday done.? Weaning trial done on 5/5 PSV patient developed respiratory distress with increased work of breathing abdominal breathing.? PSV was changed to 10/5 and will be continued for few hours which he tolerated.? 08/21 will attempt sedation holiday and weaning trial again today ABG reviewed. 08/21 5/5 PSV SBT done for more than 30 minutes. RSBI, ABGI and Vitals acceptable. Pt awake.? He does not follow commands but this could be his baseline due to advanced dementia. Will extubate and monitor. NPO for now. Bipap PRN Continue Bumex Continue bronchodilators Treatment of pneumonia as below 08/22: Patient tolerated extubation well, no obvious rest distress, patient is on nasal cannular. Continue current management (2) Sepsis: ?Code(s): A41.9 - Sepsis, unspecified organism ?Status:?Acute ?Assessment and Plan: Sepsis secondary to pneumonia.? Pneumonia could be community-acquired versus aspiration since patient has a PEG tube and is on tube feeding Blood cultures have been sent and negative till now.? Sputum culture is growing MRSA Nasal MRSA screen is positive Off IV fluids now Continue vancomycin Unasyn and doxycycline.? He has not required any vasopressors 08/22: Patient is afebrile, blood pressure stable, sepsis has resolved (3) Acute hypernatremia: ?Code(s): E87.0 - Hyperosmolality and hypernatremia ?Status:?Acute ?Assessment and Plan: Off D5 water now.? Continue free water flushes and increased to 50 Sodium is improved.? Continue current free water flushes now Continue to monitor Corrected now (4) Bilateral pneumonia: ?Code(s): J18.9 - Pneumonia, unspecified organism ?Status:?Acute ?Assessment and Plan: See above (5) Severe protein-calorie malnutrition: ?Code(s): E43 - Unspecified severe protein-calorie malnutrition ?Status:?Acute ?Assessment and Plan: Continue tube feedings and advance to go (6) Vascular dementia: ?Qualifiers: ?Dementia severity:?severe??Dementia behavioral or psycholo
[2023-08-22] MEDS: BUMETANIDE INJ 1 MG/4 ML VIAL IV PUSH (15:39)
[2023-08-22] MEDS: ALBUMIN HUMAN 25% 25 GM/100 ML 100 ML IVPB (15:44)
[2023-08-22 17:35] LABS: Glucose Point of Care 100 mg/dl (65-105)
--- NOTE | 2023-08-22 17:45 | PC.NURSE ---
pt found to be in possession of a candy with 100mg THC, candy given to security to put in the hospital safe
[2023-08-22] MEDS: MINERAL OIL/WHITE PETROLATUM OINTMENT 1 APPLIC EACH EYE (20:23)
[2023-08-22 23:43] LABS: Glucose Point of Care 98 mg/dl (65-105)
[2023-08-23] VITALS (11 sets, daily range): BP systolic 141–157; BP diastolic 64–78; PULSE 80–98; RESP 16–21; TEMP 36.6–37.6; O2SAT 97–100
[2023-08-23] MEDS: AMPICILLIN SULB 3 GM/NS 100 ML 3 GM/100 ML VIAL IVPB ×4 (02:50→20:33)
[2023-08-23 05:04] LABS: Alveolar/Arterial O2 Gradient 46.2 mmHg; Base Excess ABG 4.7 mEq/l (+/-2.0); Carboxyhemoglobin 0.1 % THb (0-2.0); Fractional Inspired Oxygen 21 %; HCO3 ABG 27.5 mEq/l (22.0-26.0); Methemoglobin ABG 0.3 %THb (0-1.5); Oxygen Content ABG 14.3 %vol (16.0-22.0); Oxygen Saturation ABG 94.3 % (95.0-100.0); Oxyhemoglobin 91.5 % THb (90.0-100.0); PCO2 ABG 34.1 mmHg (35.0-45.0); PO2 ABG 62.7 mmHg (80.0-100.0); PO2 FiO2 Ratio Arterial Blood 2.99 %; Reduced Hemoglobin 8.1 %THb (0-5.0); Total Hemoglobin 11.1 g/dL (12.0-18.0)
[2023-08-23 05:07] LABS: Modified Allen's Test Pass; Site Drawn RIGHT RADIAL; pH ABG 7.524 (7.350-7.450)
[2023-08-23 05:08] LABS: Device ROOM AIR
[2023-08-23 05:43] LABS: Hematocrit 30.9 % (42.0-52.0); Hemoglobin 9.8 g/dL (14.0-18.0); Mean Corpuscular HGB Conc 31.7 g/dl (32-36); Mean Corpuscular Hemoglobin 30.7 pg (26-34); Mean Corpuscular Volume 96.9 fl (80-100); Mean Platelet Volume 10.7 fl (7.4-10.4); Platelet Count Result 181 k/mm3 (150-375); Red Blood Count 3.19 M/mm3 (4.6-6.20); Red Cell Distribution Width 12.6 % (11.5-14.5); White Blood Count 8.7 K/mm3 (4.5-10.0)
[2023-08-23 05:58] LABS: Alanine Aminotransferase 153 U/L (6-50); Albumin Level 3.3 g/dL (3.5-5.1); Alkaline Phosphatase 81 U/L (38-126); Anion Gap 4 mmol/L (8-16); Aspartate Amino Transferase 122 U/L (17-59); Bilirubin,Total 0.7 mg/dL (0.2-1.3); Blood Urea Nitrogen 43 mg/dL (9-20); Calcium 10.2 mg/dL (8.4-10.2); Carbon Dioxide 31 mmol/L (22-30); Chloride 112 mmol/L (98-107); Estimated CRCL calculation 43 ml/min; Estimated Glomerular Filt Rate > 60; Glucose 120 mg/dL (65-110); Magnesium 2.2 mg/dL (1.6-2.3); Potassium 3.5 mmol/L (3.4-5.0); Sodium 147 mmol/L (137-145)
[2023-08-23] MEDS: CENTRAL LINE FLUSH 10 ML IV PUSH ×3 (05:59→20:36)
[2023-08-23] MEDS: POTASSIUM CHLORIDE 20 MEQ PACKET (FOR LIQUID) 40 MEQ FEED TUBE (09:10)
[2023-08-23] MEDS: ASPIRIN 81 MG CHEWABLE TABLET FEED TUBE (09:10)
[2023-08-23] MEDS: ALBUMIN HUMAN 25% 25 GM/100 ML 100 ML IVPB (09:10)
[2023-08-23] MEDS: ENOXAPARIN 40 MG/0.4 ML SYRINGE SUB-Q (09:11)
[2023-08-23] MEDS: BUMETANIDE INJ 1 MG/4 ML VIAL IV PUSH (09:11)
[2023-08-23] MEDS: ATORVASTATIN 20 MG TABLET FEED TUBE (09:11)
[2023-08-23] MEDS: PANTOPRAZOLE SODIUM IV 40 MG VIAL IV PUSH (09:11)
[2023-08-23] MEDS: MINERAL OIL/WHITE PETROLATUM OINTMENT 1 APPLIC EACH EYE (09:12)
[2023-08-23] MEDS: VANCOMYCIN 1,500 MG/NS 500 ML 1,500 MG/500 ML BAG 250 MG IVPB (10:00)
--- NOTE | 2023-08-23 11:39 | WPDINTPN ---
Progress Note: A&P Assessment and Plan (1) Acute hypoxic respiratory failure: Code(s): J96.01 - Acute respiratory failure with hypoxia Status: Acute Assessment and Plan: Acute Respiratory failure secondary to pneumonia which could be aspiration 08/22: Extubated Currently on room air with good O2 sat and no respiratory distress Chest x-ray reviewed Continue Bumex daily Continue bronchodilators Treatment of pneumonia as below (2) Sepsis: Code(s): A41.9 - Sepsis, unspecified organism Status: Acute Assessment and Plan: Sepsis secondary to pneumonia. Pneumonia could be community-acquired versus aspiration since patient has a PEG tube and is on tube feeding Blood cultures have been sent and negative till now. Sputum culture is growing MRSA Nasal MRSA screen is positive Off IV fluids now Continue vancomycin Unasyn He has not required any vasopressors (3) Acute hypernatremia: Code(s): E87.0 - Hyperosmolality and hypernatremia Status: Acute Assessment and Plan: Off D5 water now. Continue free water flushes Continue to monitor (4) Bilateral pneumonia: Code(s): J18.9 - Pneumonia, unspecified organism Status: Acute Assessment and Plan: See above (5) Severe protein-calorie malnutrition: Code(s): E43 - Unspecified severe protein-calorie malnutrition Status: Acute Assessment and Plan: Continue tube feedings and advance to goal (6) Vascular dementia: Qualifiers: Dementia severity: severe Dementia behavioral or psychological symptom: unspecified whether behavioral, psychotic, or mood disturbance or anxiety Qualified Code(s): F01.C0 - Vascular dementia, severe, without behavioral disturbance, psychotic disturbance, mood disturbance, and anxiety Code(s): F01.50 - Vascular dementia, unspecified severity, without behavioral disturbance, psychotic disturbance, mood disturbance, and anxiety Status: Acute Assessment and Plan: Baseline vascular dementia and patient only oriented to himself Failure to thrive (7) Dysphagia: Qualifiers: Dysphagia type: unspecified Qualified Code(s): R13.10 - Dysphagia, unspecified Code(s): R13.10 - Dysphagia, unspecified Status: Acute Assessment and Plan: History of dysphagia and status post PEG tube placement (8) Electrolyte abnormality: Code(s): E87.8 - Other disorders of electrolyte and fluid balance, not elsewhere classified Status: Acute Assessment and Plan: Replace potassium (9) Atrial fibrillation: Code(s): I48.91 - Unspecified atrial fibrillation Status: Acute Assessment and Plan: Patient went to [facility] with [facility] last night. Patient was treated with amiodarone and metoprolol and appears to have converted to sinus rhythm. Continue to monitor. Continue aspirin Continue anticoagulation and DVT prophylaxis does Patient is not a good candidate for long-term therapeutic anticoagulation considering advanced age and severe dementia Echo summary ? 1. Complete two-dimensional, color flow and Doppler transthoracic echocardiogram is performed. ? 2. Normal left ventricular size and overall normal systolic function with grade 1 diastolic noncompliance. ? 3. Mitral annular calcification. ? 4. Sclerotic aortic valve with good leaflet excursion. ? 5. Small amount of pulmonic regurgitation. Plan DVT prophylaxis -Lovenox Stress ulcer prophylaxis -Protonix Nutrition - continue Tube Feedsvia PEG tube Code Status - Full Code Total Critical Care Time - 32 minutes Due to a high probability of clinically significant, life threatening deterioration, the patient required my highest level of preparedness to intervene emergently and I personally spent this critical care time directly and personally managing the patient. This critical care time included obtaining a history; examining the patient; pulse oximetry
[2023-08-23 11:47] LABS: Glucose Point of Care 125 mg/dl (65-105)
--- NOTE | 2023-08-23 11:49 | PCNFU ---
Nutrition Follow-Up Complete: Unintended weight loss as related to decreased ability to consume sufficient energy as related to 8% (15 ibs) weight loss, in 3 weeks. Goal: Meet estimated nutritional needs. Patient is progressing towards goal. We will continue current goal. Pt current nutrition is Jevity 1.5 at 50 ml/hr. Last recorded weight is 78.2 kg, up from 75.3 kg on admit. Bowel Motility: +BM report 08/23 Labs Reviewed:Glu 120, BUN 43, Alb 3.3 Meds Noted:Lipitor, Lovenox, Protonix, Vancomycin. Skin: WNL Additional Notes: Patient remains on PEG tube feedings of Jevity 1.5 at 50ml/hr goal rate at 60ml/hr. Tube feedings at goal rate providing 1980 kcals/84 gms protein/1003 ml water, meeting 100% kcal needs at 26 kcal/kg and 100% protein needs at 1.0 kg-1.2 kcal/kg. Flush 100 ml q 4hours. Agree with diet orders. Will monitor weight, labs, skin, meds, tube feedings every Tuesday and Tuesday.
[2023-08-23 17:52] LABS: Glucose Point of Care 115 mg/dl (65-105)
--- NOTE | 2023-08-23 18:00 | PM.IMPN ---
Progress Note: A&P Assessment and Plan (1) Atrial fibrillation: Code(s): I48.91 - Unspecified atrial fibrillation Status: Acute (2) Electrolyte abnormality: Code(s): E87.8 - Other disorders of electrolyte and fluid balance, not elsewhere classified Status: Acute (3) Acute hypernatremia: Code(s): E87.0 - Hyperosmolality and hypernatremia Status: Acute (4) Bilateral pneumonia: Code(s): J18.9 - Pneumonia, unspecified organism Status: Acute (5) Severe protein-calorie malnutrition: Code(s): E43 - Unspecified severe protein-calorie malnutrition Status: Acute (6) Encephalopathy acute: Code(s): G93.40 - Encephalopathy, unspecified Status: Acute (7) Dysphagia: Qualifiers: Dysphagia type: unspecified Qualified Code(s): R13.10 - Dysphagia, unspecified Code(s): R13.10 - Dysphagia, unspecified Status: Acute Plan (1) Acute hypoxic respiratory failure: ?Code(s): J96.01 - Acute respiratory failure with hypoxia ?Status:?Acute ?Assessment and Plan: Acute Respiratory failure secondary to pneumonia which could be aspiration Patient now intubated and on mechanical ventilation CT scan reviewed Continue full mechanical ventilation support to prevent hypoxemia/hypercarbia and end organ damage. Low tidal volume ventilation strategy to prevent volutrauma Chest x-ray reviewed 08/19 and 08/20 Sedation holiday done.? Weaning trial done on 5/5 PSV patient developed respiratory distress with increased work of breathing abdominal breathing.? PSV was changed to 10/5 and will be continued for few hours which he tolerated.? 08/21 will attempt sedation holiday and weaning trial again today ABG reviewed. 08/21 5/5 PSV SBT done for more than 30 minutes. RSBI, ABGI and Vitals acceptable. Pt awake.? He does not follow commands but this could be his baseline due to advanced dementia. Will extubate and monitor. NPO for now. Bipap PRN Continue Bumex Continue bronchodilators Treatment of pneumonia as below 08/22:? Patient tolerated extubation well, no obvious rest distress, patient is on nasal cannular.? Continue current management (2) Sepsis: ?Code(s): A41.9 - Sepsis, unspecified organism ?Status:?Acute ?Assessment and Plan: Sepsis secondary to pneumonia.? Pneumonia could be community-acquired versus aspiration since patient has a PEG tube and is on tube feeding Blood cultures have been sent and negative till now.? Sputum culture is growing MRSA Nasal MRSA screen is positive Off IV fluids now Continue vancomycin Unasyn and doxycycline.? He has not required any vasopressors 08/23:? Patient is afebrile, blood pressure stable, sepsis has resolved (3) Acute hypernatremia: ?Code(s): E87.0 - Hyperosmolality and hypernatremia ?Status:?Acute ?Assessment and Plan: Off D5 water now.? Continue free water flushes and increased to 50 Sodium is improved.? Continue current free water flushes now Continue to monitor Corrected now (4) Bilateral pneumonia: ?Code(s): J18.9 - Pneumonia, unspecified organism ?Status:?Acute ?Assessment and Plan: See above (5) Severe protein-calorie malnutrition: ?Code(s): E43 - Unspecified severe protein-calorie malnutrition ?Status:?Acute ?Assessment and Plan: Continue tube feedings and advance to go (6) Vascular dementia: ?Qualifiers: ?Dementia severity:?severe??Dementia behavioral or psychological symptom:?unspecified whether behavioral, psychotic, or mood disturbance or anxiety? Qualified Code(s):?F01.C0 - Vascular dementia, severe, without behavioral disturbance, psychotic disturbance, mood disturbance, and anxiety ?Code(s): F01.50 - Vascular dementia, unspecified severity, without behavioral disturbance, psychotic disturbance, mood disturbance, and anxiety ?Status:?Acute ?Assessment and Plan: Baseline vascular dementia and patient only janet
--- NOTE | 2023-08-23 18:19 | PC.NURSE ---
This patient, Anton Fortune, was transferred to [facility] on 08/23/23 at 1750. Personal belongings sent with patient. Report given to Delmy. Appropriate documentation sent with patient.
[2023-08-23 18:28] LABS: Glucose Point of Care 98 mg/dl (65-105)
--- NOTE | 2023-08-23 19:44 | PC.NURSE ---
This patient, Anton Fortune, was received from ICU on 08/23/23 at 1755. Report received from ALFRED Jade. Patient/family oriented to unit policies and routines
[2023-08-24 00:29] LABS: Glucose Point of Care 107 mg/dl (65-105)
[2023-08-24 05:45] LABS: Hematocrit 30.7 % (42.0-52.0); Hemoglobin 9.7 g/dL (14.0-18.0); Mean Corpuscular HGB Conc 31.6 g/dl (32-36); Mean Corpuscular Hemoglobin 30.9 pg (26-34); Mean Corpuscular Volume 97.8 fl (80-100); Mean Platelet Volume 11.1 fl (7.4-10.4); Platelet Count Result 199 k/mm3 (150-375); Red Blood Count 3.14 M/mm3 (4.6-6.20); Red Cell Distribution Width 12.9 % (11.5-14.5); White Blood Count 8.1 K/mm3 (4.5-10.0)
[2023-08-24 05:56] LABS: Alanine Aminotransferase 175 U/L (6-50); Albumin Level 3.3 g/dL (3.5-5.1); Alkaline Phosphatase 92 U/L (38-126); Anion Gap 4 mmol/L (8-16); Aspartate Amino Transferase 121 U/L (17-59); Bilirubin,Total 0.6 mg/dL (0.2-1.3); Blood Urea Nitrogen 39 mg/dL (9-20); Calcium 10.1 mg/dL (8.4-10.2); Carbon Dioxide 32 mmol/L (22-30); Chloride 112 mmol/L (98-107); Estimated CRCL calculation 43 ml/min; Estimated Glomerular Filt Rate > 60; Glucose 140 mg/dL (65-110); Magnesium 2.4 mg/dL (1.6-2.3); Potassium 3.6 mmol/L (3.4-5.0); Sodium 148 mmol/L (137-145)
[2023-08-24 06:03] LABS: Glucose Point of Care 146 mg/dl (65-105)
[2023-08-24] MEDS: CENTRAL LINE FLUSH 10 ML IV PUSH ×3 (06:16→22:39)
[2023-08-24] MEDS: ENOXAPARIN 40 MG/0.4 ML SYRINGE SUB-Q (08:07)
[2023-08-24] MEDS: ATORVASTATIN 20 MG TABLET FEED TUBE (08:07)
[2023-08-24] MEDS: BUMETANIDE INJ 1 MG/4 ML VIAL IV PUSH (08:07)
[2023-08-24] MEDS: ASPIRIN 81 MG CHEWABLE TABLET FEED TUBE (08:08)
--- NOTE | 2023-08-24 09:20 | PM.IMPN ---
Progress Note: A&P Assessment and Plan (1) Atrial fibrillation: Code(s): I48.91 - Unspecified atrial fibrillation Status: Acute (2) Electrolyte abnormality: Code(s): E87.8 - Other disorders of electrolyte and fluid balance, not elsewhere classified Status: Acute (3) Acute hypernatremia: Code(s): E87.0 - Hyperosmolality and hypernatremia Status: Acute (4) Bilateral pneumonia: Code(s): J18.9 - Pneumonia, unspecified organism Status: Acute (5) Severe protein-calorie malnutrition: Code(s): E43 - Unspecified severe protein-calorie malnutrition Status: Acute (6) Encephalopathy acute: Code(s): G93.40 - Encephalopathy, unspecified Status: Acute (7) Dysphagia: Qualifiers: Dysphagia type: unspecified Qualified Code(s): R13.10 - Dysphagia, unspecified Code(s): R13.10 - Dysphagia, unspecified Status: Acute Plan (1) Acute hypoxic respiratory failure: ?Code(s): J96.01 - Acute respiratory failure with hypoxia ?Status:?Acute ?Assessment and Plan: Acute Respiratory failure secondary to pneumonia which could be aspiration Patient now intubated and on mechanical ventilation CT scan reviewed Continue full mechanical ventilation support to prevent hypoxemia/hypercarbia and end organ damage. Low tidal volume ventilation strategy to prevent volutrauma Chest x-ray reviewed 08/19 and 08/20 Sedation holiday done.? Weaning trial done on 5/5 PSV patient developed respiratory distress with increased work of breathing abdominal breathing.? PSV was changed to 10/5 and will be continued for few hours which he tolerated.? 08/21 will attempt sedation holiday and weaning trial again today ABG reviewed. 08/21 5/5 PSV SBT done for more than 30 minutes. RSBI, ABGI and Vitals acceptable. Pt awake.? He does not follow commands but this could be his baseline due to advanced dementia. Will extubate and monitor. NPO for now. Bipap PRN Continue Bumex Continue bronchodilators Treatment of pneumonia as below 08/23:? Patient tolerated extubation well, no obvious rest distress, patient is on nasal cannular.? Continue current management 08/24: Patient is on nasal cannular, pulse ox 98, (2) Sepsis: ?Code(s): A41.9 - Sepsis, unspecified organism ?Status:?Acute ?Assessment and Plan: Sepsis secondary to pneumonia.? Pneumonia could be community-acquired versus aspiration since patient has a PEG tube and is on tube feeding Blood cultures have been sent and negative till now.? Sputum culture is growing MRSA Nasal MRSA screen is positive Off IV fluids now Continue vancomycin Unasyn and doxycycline.? He has not required any vasopressors 08/23:? Patient is afebrile, blood pressure stable, sepsis has resolved (3) Acute hypernatremia: ?Code(s): E87.0 - Hyperosmolality and hypernatremia ?Status:?Acute ?Assessment and Plan: .? Continue free water flushes and increased to 50 Sodium is improved.? Continue current free water flushes now Continue to monitor increased BUN creatinine ratio sodium 148, BUN 39, creatinine 1.0 s/w D5 water (4) Bilateral pneumonia: ?Code(s): J18.9 - Pneumonia, unspecified organism ?Status:?Acute ?Assessment and Plan: Suspecting aspiration pneumonia Antibiotics see above Repeat chest x-ray (5) Severe protein-calorie malnutrition: ?Code(s): E43 - Unspecified severe protein-calorie malnutrition ?Status:?Acute ?Assessment and Plan: Continue tube feedings and advance to go (6) Vascular dementia: ?Qualifiers: ?Dementia severity:?severe??Dementia behavioral or psychological symptom:?unspecified whether behavioral, psychotic, or mood disturbance or anxiety? Qualified Code(s):?F01.C0 - Vascular dementia, severe, without behavioral disturbance, psychotic disturbance, mood disturbance, and anxiety ?Code(s): F01.50 - Vascular dementia, unspecified severity, without be
--- NOTE | 2023-08-24 11:08 | PCPTNOTE ---
Attempted PT evaluation, pt not following commands despite being given verbal, tactile and visual cues. Therapist attempted to initiate movement to EOB, but pt does not participate. RN aware. Will follow.
[2023-08-24 11:36] LABS: Glucose Point of Care 141 mg/dl (65-105)
[2023-08-24 13:48] VITALS: BP 164/87; PULSE 71; RESP 18; O2SAT 97
[2023-08-24 17:41] LABS: Glucose Point of Care 123 mg/dl (65-105)
[2023-08-24] MEDS: DEXTROSE 5% IN WATER 250 ML 125 ML IV CONT (17:42)
[2023-08-24 20:00] VITALS: O2SAT 97
[2023-08-24 21:43] VITALS: BP 154/89; PULSE 95; RESP 22; TEMP 37.2; O2SAT 97
[2023-08-25 02:01] LABS: Glucose Point of Care 144 mg/dl (65-105)
[2023-08-25 06:00] LABS: Glucose Point of Care 116 mg/dl (65-105)
[2023-08-25 06:07] VITALS: BP 158/83; PULSE 100; RESP 22; TEMP 36.9; O2SAT 97
[2023-08-25 06:09] LABS: Hematocrit 35.7 % (42.0-52.0); Mean Corpuscular HGB Conc 30.8 g/dl (32-36); Mean Corpuscular Volume 97.3 fl (80-100); Mean Platelet Volume 10.9 fl (7.4-10.4); Platelet Count Result 206 k/mm3 (150-375); Red Blood Count 3.67 M/mm3 (4.6-6.20); Red Cell Distribution Width 12.9 % (11.5-14.5); White Blood Count 9.2 K/mm3 (4.5-10.0)
[2023-08-25 06:22] LABS: Alanine Aminotransferase 219 U/L (6-50); Albumin Level 3.4 g/dL (3.5-5.1); Alkaline Phosphatase 97 U/L (38-126); Anion Gap 3 mmol/L (8-16); Aspartate Amino Transferase 126 U/L (17-59); Bilirubin,Total 0.6 mg/dL (0.2-1.3); Blood Urea Nitrogen 43 mg/dL (9-20); Calcium 10.2 mg/dL (8.4-10.2); Carbon Dioxide 30 mmol/L (22-30); Chloride 110 mmol/L (98-107); Estimated CRCL calculation 43 ml/min; Estimated Glomerular Filt Rate > 60; Glucose 147 mg/dL (65-110); Magnesium 2.5 mg/dL (1.6-2.3); Potassium 3.9 mmol/L (3.4-5.0); Sodium 143 mmol/L (137-145)
--- NOTE | 2023-08-25 08:34 | PM.IMPN ---
Progress Note: A&P Assessment and Plan (1) Atrial fibrillation: Code(s): I48.91 - Unspecified atrial fibrillation Status: Acute (2) Electrolyte abnormality: Code(s): E87.8 - Other disorders of electrolyte and fluid balance, not elsewhere classified Status: Acute (3) Acute hypernatremia: Code(s): E87.0 - Hyperosmolality and hypernatremia Status: Acute (4) Bilateral pneumonia: Code(s): J18.9 - Pneumonia, unspecified organism Status: Acute (5) Severe protein-calorie malnutrition: Code(s): E43 - Unspecified severe protein-calorie malnutrition Status: Acute (6) Encephalopathy acute: Code(s): G93.40 - Encephalopathy, unspecified Status: Acute (7) Dysphagia: Qualifiers: Dysphagia type: unspecified Qualified Code(s): R13.10 - Dysphagia, unspecified Code(s): R13.10 - Dysphagia, unspecified Status: Acute Plan (1) Acute hypoxic respiratory failure: ?Code(s): J96.01 - Acute respiratory failure with hypoxia ?Status:?Acute ?Assessment and Plan: Acute Respiratory failure secondary to pneumonia which could be aspiration Patient now intubated and on mechanical ventilation CT scan reviewed Continue full mechanical ventilation support to prevent hypoxemia/hypercarbia and end organ damage. Low tidal volume ventilation strategy to prevent volutrauma Chest x-ray reviewed 08/19 and 08/20 Sedation holiday done.? Weaning trial done on 5/5 PSV patient developed respiratory distress with increased work of breathing abdominal breathing.? PSV was changed to 10/5 and will be continued for few hours which he tolerated.? 08/21 will attempt sedation holiday and weaning trial again today ABG reviewed. 08/21 5/5 PSV SBT done for more than 30 minutes. RSBI, ABGI and Vitals acceptable. Pt awake.? He does not follow commands but this could be his baseline due to advanced dementia. Will extubate and monitor. NPO for now. Bipap PRN Continue Bumex Continue bronchodilators Treatment of pneumonia as below 08/23:? Patient tolerated extubation well, no obvious rest distress, patient is on nasal cannular.? Continue current management 08/24: Patient is on nasal cannular, pulse ox 98, (2) Sepsis: ?Code(s): A41.9 - Sepsis, unspecified organism ?Status:?Acute ?Assessment and Plan: Sepsis secondary to pneumonia.? Pneumonia could be community-acquired versus aspiration since patient has a PEG tube and is on tube feeding Blood cultures have been sent and negative till now.? Sputum culture is growing MRSA Nasal MRSA screen is positive Off IV fluids now completed 7 days of vancomycin Unasyn and doxycycline He has not required any vasopressors 08/23:? Patient is afebrile, blood pressure stable, sepsis has resolved (3) Acute hypernatremia: ?Code(s): E87.0 - Hyperosmolality and hypernatremia ?Status:?Acute ?Assessment and Plan: .? Continue free water flushes and increased to 50 Sodium is improved.? Continue current free water flushes now Continue to monitor increased BUN creatinine ratio sodium 148, BUN 39, creatinine 1.0 s/w D5 water on 08/24 08/25: Hypernatremia resolved, discontinue D5 water, increase free water from 100 to200 q.4 hours, pt will receive free water 1.2 liter and pt also receives 60ml/h tube feeding (4) Bilateral pneumonia: ?Code(s): J18.9 - Pneumonia, unspecified organism ?Status:?Acute ?Assessment and Plan: Suspecting aspiration pneumonia Antibiotics see above Repeat chest x-ray (5) Severe protein-calorie malnutrition: ?Code(s): E43 - Unspecified severe protein-calorie malnutrition ?Status:?Acute ?Assessment and Plan: Continue tube feedings and advance to go (6) Vascular dementia: ?Qualifiers: ?Dementia severity:?severe??Dementia behavioral or psychological symptom:?unspecified whether behavioral, psychotic, or mood disturbance or anxiety? Qualified Code(s):?F01
[2023-08-25] MEDS: BUMETANIDE INJ 1 MG/4 ML VIAL IV PUSH (09:20)
[2023-08-25] MEDS: ENOXAPARIN 40 MG/0.4 ML SYRINGE SUB-Q (09:20)
[2023-08-25] MEDS: ATORVASTATIN 20 MG TABLET FEED TUBE (09:20)
[2023-08-25] MEDS: ASPIRIN 81 MG CHEWABLE TABLET FEED TUBE (09:20)
[2023-08-25] MEDS: CENTRAL LINE FLUSH 10 ML IV PUSH ×3 (09:21→22:00)
[2023-08-25 09:31] LABS: Procalcitonin 0.2 ng/mL
[2023-08-25 10:51] VITALS: BMI 11.0
[2023-08-25 12:10] LABS: Glucose Point of Care 156 mg/dl (65-105)
[2023-08-25 14:00] VITALS: BP 131/71; PULSE 99; RESP 20; TEMP 37.7; O2SAT 95
[2023-08-25 21:45] VITALS: BP 144/74; PULSE 91; RESP 20; TEMP 36.8; O2SAT 97
[2023-08-26] VITALS (10 sets, daily range): BP systolic 118–157; BP diastolic 70–92; PULSE 86–92; RESP 18–22; TEMP 36.6–37.2; O2SAT 94–100
[2023-08-26 02:40] LABS: Glucose Point of Care 130 mg/dl (65-105)
--- NOTE | 2023-08-26 04:47 | WPDURCON ---
Urology Consult Note HPI Date Seen: 08/26/23 Requesting Physician: Lynnette Claudio MD Primary Care Provider: Maurice Wright, Consult Narrative Narrative: Anton Fortune is a 88 year old male Gross hematuria noted. Renal US negative. Bladder US no clots. CT with mass at base of bladder. Likely enllarged median lobe of prostate. Bladder mass mass likely, but can be evaluated at some point with cystoscopy (inpatient or outpatient). Urology team will see [facility] Past Medical History Medical History Age-related macular degeneration, wet, left eye BPH (benign prostatic hyperplasia) Dementia Encephalopathy acute Essential hypertension Glaucoma Hyperlipidemia Surgical History Surgical History Status post cataract extraction of both eyes with insertion of intraocular lens Family History Family History Sibling Acute myocardial infarction Cerebrovascular accident Chronic obstructive pulmonary disease Mother Hypertension Acute myocardial infarction Social History Social History Social History: The patient lives at home with his until recent hospitalization at [facility] early July 2023. Code status: Full code Surrogate decision maker: Smoking status: Never smoker Alcohol intake: never Substance use: never Do You Feel Safe in your Home?: Yes Lack of Transportation: No Lack of Food: Never True Current Housing: I Have Housing Concerned About Future Housing: No Difficulty Paying Gas/Electric Bills: No Difficulty Paying for Meds: No Currently Unemployed: No Education: Bachelor's Degree Difficulty w/ Childcare or Family Care: No Spiritual care concerns: No Meds Home Medications and Allergies Home Medications Medication Instructions Recorded Confirmed Type PreserVision AREDS-2 1 cap PO DAILY 07/26/23 08/17/23 History aspirin 81 mg tablet,delayed 81 mg PO DAILY 07/26/23 08/17/23 History release atorvastatin 20 mg tablet 20 mg PO DAILY 07/26/23 08/17/23 History brimonidine 0.2 %-timolol 0.5 % 1 drp ophthalmic (eye) HS 07/26/23 08/17/23 History eye drops buspirone 5 mg tablet 2.5 mg PO BID 07/26/23 08/17/23 History chlorthalidone 25 mg tablet 25 mg PO DAILY 07/26/23 08/17/23 History lycopene 10 mg capsule 10 mg PO DAILY 07/26/23 08/17/23 History metoprolol succinate 50 mg 50 mg PO DAILY 07/26/23 08/17/23 History tablet,extended release 24 hr potassium chloride 20 mEq 20 meq PO DAILY 07/26/23 08/17/23 History tablet,extended release(part/cryst) (Klor-Con M) quetiapine 25 mg tablet 25 mg PO HS PRN Sleep 07/26/23 08/17/23 History tamsulosin 0.4 mg capsule 0.4 mg PO DAILY 07/26/23 08/17/23 History famotidine 20 mg tablet 20 mg PO DAILY #30 tabs 07/28/23 08/17/23 Rx Allergies Allergy/AdvReac Type Severity Reaction Status Date / Time No Known Allergies Allergy Verified 07/27/23 09:35 Vital Signs Vital Signs - 24 hr 08/25/23 06:07 08/25/23 10:51 08/25/23 14:00 Temperature 98.4 F 99.8 F H Pulse Rate 100 99 Respiratory Rate 22 H 20 Blood Pressure 158/83 H 131/71 Pulse Oximetry 97 95 Oxygen Delivery Room Air 08/25/23 21:45 Temperature 98.2 F Pulse Rate 91 Respiratory Rate 20 Blood Pressure 144/74 H Pulse Oximetry 97 Oxygen Delivery Results Labs 08/25/23 05:59 08/25/23 05:59 Labs: Short CBC 08/25/23 Range/Units 05:59 WBC 9.2 (4.5-10.0) K/mm3 Hgb 11.0 L (14.0-18.0) g/dL Hct 35.7 L (42.0-52.0) % Plt Count 206 (150-375) k/mm3 BMP 08/25/23 05:59 Sodium 143 Potassium 3.9 Chloride 110 H Carbon Dioxide 30 BUN 43 H Creatinine 1.00 Glucose 147 H Calcium 10.2 Liver Function 08/25/23 Range/Units 05:59 Total Bilirubin 0.6
[2023-08-26 05:51] LABS: Hematocrit 32.4 % (42.0-52.0); Hemoglobin 10.2 g/dL (14.0-18.0); Mean Corpuscular HGB Conc 31.5 g/dl (32-36); Mean Corpuscular Hemoglobin 30.5 pg (26-34); Platelet Count Result 197 k/mm3 (150-375); Red Blood Count 3.34 M/mm3 (4.6-6.20); Red Cell Distribution Width 12.9 % (11.5-14.5); White Blood Count 8.3 K/mm3 (4.5-10.0)
[2023-08-26 06:08] LABS: Alanine Aminotransferase 231 U/L (6-50); Albumin Level 3.2 g/dL (3.5-5.1); Alkaline Phosphatase 91 U/L (38-126); Anion Gap 3 mmol/L (8-16); Aspartate Amino Transferase 107 U/L (17-59); Bilirubin,Total 0.5 mg/dL (0.2-1.3); Blood Urea Nitrogen 47 mg/dL (9-20); Carbon Dioxide 32 mmol/L (22-30); Chloride 111 mmol/L (98-107); Estimated CRCL calculation 39 ml/min; Estimated Glomerular Filt Rate > 60; Glucose 148 mg/dL (65-110); Magnesium 2.5 mg/dL (1.6-2.3); Potassium 3.8 mmol/L (3.4-5.0); Sodium 146 mmol/L (137-145)
[2023-08-26 06:25] LABS: Procalcitonin 0.2 ng/mL
[2023-08-26 06:33] LABS: Glucose Point of Care 143 mg/dl (65-105)
[2023-08-26] MEDS: CENTRAL LINE FLUSH 10 ML IV PUSH ×3 (08:00→20:45)
[2023-08-26] MEDS: ASPIRIN 81 MG CHEWABLE TABLET FEED TUBE (08:05)
[2023-08-26] MEDS: ENOXAPARIN 40 MG/0.4 ML SYRINGE SUB-Q (08:05)
[2023-08-26] MEDS: ATORVASTATIN 20 MG TABLET FEED TUBE (08:05)
[2023-08-26] MEDS: BUMETANIDE INJ 1 MG/4 ML VIAL IV PUSH (08:05)
--- NOTE | 2023-08-26 08:20 | PM.IMPN ---
Progress Note: A&P Assessment and Plan (1) Atrial fibrillation: Code(s): I48.91 - Unspecified atrial fibrillation Status: Acute (2) Electrolyte abnormality: Code(s): E87.8 - Other disorders of electrolyte and fluid balance, not elsewhere classified Status: Acute (3) Acute hypernatremia: Code(s): E87.0 - Hyperosmolality and hypernatremia Status: Acute (4) Bilateral pneumonia: Code(s): J18.9 - Pneumonia, unspecified organism Status: Acute (5) Severe protein-calorie malnutrition: Code(s): E43 - Unspecified severe protein-calorie malnutrition Status: Acute (6) Encephalopathy acute: Code(s): G93.40 - Encephalopathy, unspecified Status: Acute (7) Dysphagia: Qualifiers: Dysphagia type: unspecified Qualified Code(s): R13.10 - Dysphagia, unspecified Code(s): R13.10 - Dysphagia, unspecified Status: Acute Plan (1) Acute hypoxic respiratory failure: ?Code(s): J96.01 - Acute respiratory failure with hypoxia ?Status:?Acute ?Assessment and Plan: Acute Respiratory failure secondary to pneumonia which could be aspiration Patient now intubated and on mechanical ventilation CT scan reviewed Continue full mechanical ventilation support to prevent hypoxemia/hypercarbia and end organ damage. Low tidal volume ventilation strategy to prevent volutrauma Chest x-ray reviewed 08/19 and 08/20 Sedation holiday done.? Weaning trial done on 5/5 PSV patient developed respiratory distress with increased work of breathing abdominal breathing.? PSV was changed to 10/5 and will be continued for few hours which he tolerated.? 08/21 will attempt sedation holiday and weaning trial again today ABG reviewed. 08/21 5/5 PSV SBT done for more than 30 minutes. RSBI, ABGI and Vitals acceptable. Pt awake.? He does not follow commands but this could be his baseline due to advanced dementia. Will extubate and monitor. NPO for now. Bipap PRN Continue Bumex Continue bronchodilators Treatment of pneumonia as below 08/23:? Patient tolerated extubation well, no obvious rest distress, patient is on nasal cannular.? Continue current management 08/24: Patient is on nasal cannular, pulse ox 98, (2) Sepsis: ?Code(s): A41.9 - Sepsis, unspecified organism ?Status:?Acute ?Assessment and Plan: Sepsis secondary to pneumonia.? Pneumonia could be community-acquired versus aspiration since patient has a PEG tube and is on tube feeding Blood cultures have been sent and negative till now.? Sputum culture is growing MRSA Nasal MRSA screen is positive Off IV fluids now completed 7 days of vancomycin Unasyn and doxycycline He has not required any vasopressors 08/23:? Patient is afebrile, blood pressure stable, sepsis has resolved (3) Acute hypernatremia and dehydration ?Code(s): E87.0 - Hyperosmolality and hypernatremia ?Status:?Acute ?Assessment and Plan: .? Continue free water flushes and increased to 50 Sodium is improved.? Continue current free water flushes now Continue to monitor increased BUN creatinine ratio sodium 148, BUN 39, creatinine 1.0 s/w D5 water on 08/24 08/25: Hypernatremia resolved, discontinue D5 water, increase free water from 100 to200 q.4 hours, pt will receive free water 1.2 liter and pt also receives 60ml/h tube feeding 08/26: tube feeding need to replaced because of obstruction. restart D5W iv today (4) Bilateral pneumonia: ?Code(s): J18.9 - Pneumonia, unspecified organism ?Status:?Acute ?Assessment and Plan: Suspecting aspiration pneumonia Antibiotics see above Repeat chest x-ray (5) Severe protein-calorie malnutrition: ?Code(s): E43 - Unspecified severe protein-calorie malnutrition ?Status:?Acute ?Assessment and Plan: Continue tube feedings and advance to go (6) Vascular dementia: ?Qualifiers: ?Dementia severity:?severe??Dementia behavioral or psychological sympt
--- NOTE | 2023-08-26 09:28 | WPDURCON ---
Assessment and Plan Assessment and plan (1) Gross hematuria: Code(s): R31.0 - Gross hematuria Status: Acute Assessment and Plan: Resolved. Noted to have a single clot in his Ramos catheter. Urine is now clear, light pink without clots. Continue to monitor and ensure catheter is draining well. He is on daily aspirin as well as Lovenox, would recommend holding this if worsening hematuria. (2) Abnormal CT scan, pelvis: Code(s): R93.5 - Abnormal findings on diagnostic imaging of other abdominal regions, including retroperitoneum Status: Acute Assessment and Plan: CT demonstrates a 2.2 cm intraluminal nodule at the base of the bladder which may be due to median lobe from prostate versus less likely bladder mass. He will require a cystoscopy at some point for further evaluation. Would recommend inpatient cystoscopy if worsening gross hematuria, however if continued improvement, this can be completed as an outpatient Urology Consult Note HPI Date Seen: 08/26/23 Requesting Physician: Lynnette Claudio MD Primary Care Provider: Maurice Wright, Consult Narrative Narrative: Anton Fortune is a 88 year old male with history of dementia who is admitted for pneumonia/respiratory failure. He is being seen in consultation for evaluation of gross hematuria. I am unable to obtain any history from the patient given his dementia. It sounds as though a ramos catheter was placed on admission to ICU. His urine has been clear until 1 day ago when a clot was noted in the tubing. He had a CT of his abdomen/pelvis on admission that did showed a 2.2 cm nodule at the base of his bladder, likely enlarged median lobe of the prostate, but may be related to bladder mass. A renal ultrasound was completed on 08/25/2023 which showed normal kidneys without hydronephrosis and decompressed bladder. UA was without concerns for infection. At the time of my evaluation, his Ramos catheter is draining clear, very light pink-tinged urine. His hemoglobin remained stable at 10.2. Creatinine is within normal limits 1.1. He is afebrile and his vital signs are stable. Review of Systems Review of Systems: ROS unobtainable: Yes unobtainable due to mental status PMFSH Past Medical History Medical History Age-related macular degeneration, wet, left eye BPH (benign prostatic hyperplasia) Dementia Encephalopathy acute Essential hypertension Glaucoma Hyperlipidemia Surgical History Surgical History Status post cataract extraction of both eyes with insertion of intraocular lens Family History Family History Sibling Acute myocardial infarction Cerebrovascular accident Chronic obstructive pulmonary disease Mother Hypertension Acute myocardial infarction Social History Social History Social History: The patient lives at home with his until recent hospitalization at [facility] early July 2023. Code status: Full code Surrogate decision maker: Smoking status: Never smoker Alcohol intake: never Substance use: never Do You Feel Safe in your Home?: Yes Lack of Transportation: No Lack of Food: Never True Current Housing: I Have Housing Concerned About Future Housing: No Difficulty Paying Gas/Electric Bills: No Difficulty Paying for Meds: No Currently Unemployed: No Education: Bachelor's Degree Difficulty w/ Childcare or Family Care: No Spiritual care concerns: No Meds Home Medications and Allergies Home Medications Medication Instructions Recorded Confirmed Type PreserVision AREDS-2 1 cap PO DAILY 07/26/23 08/17/23 History aspirin 81 mg tablet,delayed 81 mg PO DAILY 07/26/23 08/17/23 History release atorvastatin 20 mg tablet 20 mg PO DA
[2023-08-26 12:09] LABS: Glucose Point of Care 108 mg/dl (65-105)
[2023-08-26] MEDS: DEXTROSE 5% 1,000 ML 1,000 ML 100 ML IV CONT (12:14)
--- NOTE | 2023-08-26 13:24 | PCNFU ---
Nutrition Follow-Up Complete: Unintended weight loss as related to decreased ability to consume sufficient energy as related to 8% (15 ibs) weight loss, in 3 weeks. Meet estimated nutritional needs. - Meeting goal with tube feeding Goal: Pt current nutrition is Jevity 1.5 @ goal rate 60 ml/h with 200 ml flushes q 4 hours.. Nutrition recommendation: No new recommendations. Continue with current tube feeding orders and flushes Last recorded weight is 78.1 kg. Bowel Motility: +1 BM 08/25/23 Labs Reviewed: Hgb 10.2, Hct 32.4, Alb 3.2, Na 146, BUN 47 Meds Noted: Lipitor, lovenox Skin: WNL Additional Notes: Nonverbal, has PEG. Meeting ~100% EER with tube feeding: Jevity 1.5@ 60 ml/h: 1980 kcal, 84 g protein, 1003 ml free water. 200 ml flushes q 4 hours = 2000 ml/day. Agree with current orders Will monitor weight, labs, skin, meds, tube feedings every Tuesday and Tuesday.
[2023-08-26] MEDS: LACTATED RINGERS 1,000 ML 150 ML IV CONT (14:25)
--- NOTE | 2023-08-26 14:45 | WPDANESEPPF ---
Anes - Initial Pre Proc Eval Procedure: Operation Date: 08/26/23 16:00 Proposed Procedures p Percutaneous Endoscopic Gastrostomy - Doug Knapp MD Date/Time: 08/26/23 14:45 Surgeon: Lynnette Claudio MD Pre Op Diagnosis: Severe Sepsis, Bilateral Pneumonia, Respiratory Fa Patient Data Age: 88 Gender: M Height: 1.7 m Weight: 78.1 kg Last Vital Signs Temp 99 F 08/26/23 14:27 Pulse 87 08/26/23 14:27 Resp 20 08/26/23 14:27 BP 157/78 H 08/26/23 14:27 Pulse Ox 96 08/26/23 14:27 O2 Del Method Room Air 08/26/23 14:27 O2 Flow Rate 1 08/22/23 12:00 FiO2 30 08/23/23 08:00 Allergies Allergy/AdvReac Type Severity Reaction Status Date / Time No Known Allergies Allergy Verified 08/26/23 14:26 Home Medications Medication Instructions Recorded Confirmed Type PreserVision AREDS-2 1 cap PO DAILY 07/26/23 08/17/23 History aspirin 81 mg tablet,delayed 81 mg PO DAILY 07/26/23 08/17/23 History release atorvastatin 20 mg tablet 20 mg PO DAILY 07/26/23 08/17/23 History brimonidine 0.2 %-timolol 0.5 % 1 drp ophthalmic (eye) HS 07/26/23 08/17/23 History eye drops buspirone 5 mg tablet 2.5 mg PO BID 07/26/23 08/17/23 History chlorthalidone 25 mg tablet 25 mg PO DAILY 07/26/23 08/17/23 History lycopene 10 mg capsule 10 mg PO DAILY 07/26/23 08/17/23 History metoprolol succinate 50 mg 50 mg PO DAILY 07/26/23 08/17/23 History tablet,extended release 24 hr potassium chloride 20 mEq 20 meq PO DAILY 07/26/23 08/17/23 History tablet,extended release(part/cryst) (Klor-Con M) quetiapine 25 mg tablet 25 mg PO HS PRN Sleep 07/26/23 08/17/23 History tamsulosin 0.4 mg capsule 0.4 mg PO DAILY 07/26/23 08/17/23 History famotidine 20 mg tablet 20 mg PO DAILY #30 tabs 07/28/23 08/17/23 Rx Laboratory Tests 08/26/23 08/26/23 08/26/23 00:17 05:40 05:45 WBC 8.3 K/mm3 (4.5-10.0) RBC 3.34 L M/mm3 (4.6-6.20) Hgb 10.2 L g/dL (14.0-18.0) Hct 32.4 L % (42.0-52.0) MCV 97.0 fl (80-100) MCH 30.5 pg (26-34) MCHC 31.5 L g/dl (32-36) RDW 12.9 % (11.5-14.5) Plt Count 197 k/mm3 (150-375) MPV 11.0 H fl (7.4-10.4) Sodium 146 H mmol/L (137-145) Potassium 3.8 mmol/L (3.4-5.0) Chloride 111 H mmol/L (98-107) Carbon Dioxide 32 H mmol/L (22-30) Anion Gap 3 L mmol/L (8-16) BUN 47 H mg/dL (9-20) Creatinine 1.10 mg/dL (0.7-1.3) Estim Creat Clear Calc 39 ml/min Estimated GFR > 60 (59 - ) Glucose 148 H mg/dL (65-110) POC Capillary Glucose 130 H mg/dl 143 H mg/dl (65-105) (65-105) Calcium 10.0 mg/dL (8.4-10.2) Magnesium 2.5 H mg/dL (1.6-2.3) Total Bilirubin 0.5 mg/dL (0.2-1.3) AST 107 H U/L (17-59) ALT 231 H U/L (6-50) Alkaline Phosphatase 91 U/L (38-126) Total Protein 6.0 L g/dL (6.3-8.2) Albumin 3.2 L g/dL (3.5-5.1) Procalcitonin 0.2 ng/mL 08/26/23 11:54 WBC RBC Hgb Hct MCV MCH MCHC RDW Plt Count MPV Sodium Potassium Chloride Carbon Dioxide Anion Gap BUN Creatinine Estim Creat Clear Calc Estimated GFR Glucose POC Capillary Glucose 108 H mg/dl (65-105) Calcium Magnesium Total Bilirubin AST ALT Alkaline Phosphatase Total Protein Albumin Procalcitonin Patient hx anesthesia problems: none Family hx anesthesia problems: none Results Review: All pre-operative results and documents have been reviewed as part of the pre-operative evaluation. [facility] Past Medical History Medical History Age-related macular de
--- NOTE | 2023-08-26 15:24 | PCPTNOTE ---
Attempted therapy at this time however patient out of room per nursing.
[2023-08-26 16:16] LABS: Glucose Point of Care 77 mg/dl (65-105)
[2023-08-26 17:58] LABS: Glucose Point of Care 78 mg/dl (65-105)
[2023-08-27 00:06] LABS: Glucose Point of Care 128 mg/dl (65-105)
[2023-08-27 06:00] VITALS: BP 152/78; PULSE 86; RESP 18; TEMP 36.6; O2SAT 98
[2023-08-27 06:06] LABS: Glucose Point of Care 135 mg/dl (65-105)
[2023-08-27 06:10] LABS: Hematocrit 31.9 % (42.0-52.0); Hemoglobin 9.9 g/dL (14.0-18.0); Mean Corpuscular Hemoglobin 30.3 pg (26-34); Mean Corpuscular Volume 97.6 fl (80-100); Mean Platelet Volume 11.2 fl (7.4-10.4); Platelet Count Result 171 k/mm3 (150-375); Red Blood Count 3.27 M/mm3 (4.6-6.20); Red Cell Distribution Width 13.1 % (11.5-14.5); White Blood Count 8.3 K/mm3 (4.5-10.0)
[2023-08-27 06:37] LABS: Alanine Aminotransferase 192 U/L (6-50); Albumin Level 3.1 g/dL (3.5-5.1); Alkaline Phosphatase 90 U/L (38-126); Anion Gap 1 mmol/L (8-16); Aspartate Amino Transferase 73 U/L (17-59); Bilirubin,Total 0.5 mg/dL (0.2-1.3); Blood Urea Nitrogen 48 mg/dL (9-20); Calcium 9.7 mg/dL (8.4-10.2); Carbon Dioxide 31 mmol/L (22-30); Chloride 109 mmol/L (98-107); Estimated CRCL calculation 43 ml/min; Estimated Glomerular Filt Rate > 60; Glucose 144 mg/dL (65-110); Magnesium 2.5 mg/dL (1.6-2.3); Potassium 3.5 mmol/L (3.4-5.0); Sodium 141 mmol/L (137-145)
[2023-08-27 06:40] LABS: Procalcitonin 0.2 ng/mL
--- NOTE | 2023-08-27 07:47 | PM.IMPN ---
Progress Note: A&P Assessment and Plan (1) Atrial fibrillation: Code(s): I48.91 - Unspecified atrial fibrillation Status: Acute (2) Electrolyte abnormality: Code(s): E87.8 - Other disorders of electrolyte and fluid balance, not elsewhere classified Status: Acute (3) Acute hypernatremia: Code(s): E87.0 - Hyperosmolality and hypernatremia Status: Acute (4) Bilateral pneumonia: Code(s): J18.9 - Pneumonia, unspecified organism Status: Acute (5) Severe protein-calorie malnutrition: Code(s): E43 - Unspecified severe protein-calorie malnutrition Status: Acute (6) Encephalopathy acute: Code(s): G93.40 - Encephalopathy, unspecified Status: Acute (7) Dysphagia: Qualifiers: Dysphagia type: unspecified Qualified Code(s): R13.10 - Dysphagia, unspecified Code(s): R13.10 - Dysphagia, unspecified Status: Acute Plan Delaney hematuria 08/27 Patient noticed to have delaney hematuria yesterday Hemoglobin stable Repeat urinalysis Ultrasound shows normal kidney no hydronephrosis consult urologist for evaluation and treatment (1) Acute hypoxic respiratory failure: ?Code(s): J96.01 - Acute respiratory failure with hypoxia ?Status:?Acute ?Assessment and Plan: Acute Respiratory failure secondary to pneumonia which could be aspiration Patient now intubated and on mechanical ventilation CT scan reviewed Continue full mechanical ventilation support to prevent hypoxemia/hypercarbia and end organ damage. Low tidal volume ventilation strategy to prevent volutrauma Chest x-ray reviewed 08/19 and 08/20 Sedation holiday done.? Weaning trial done on 5/5 PSV patient developed respiratory distress with increased work of breathing abdominal breathing.? PSV was changed to 10/5 and will be continued for few hours which he tolerated.? 08/21 will attempt sedation holiday and weaning trial again today ABG reviewed. 08/21 5/5 PSV SBT done for more than 30 minutes. RSBI, ABGI and Vitals acceptable. Pt awake.? He does not follow commands but this could be his baseline due to advanced dementia. Will extubate and monitor. NPO for now. Bipap PRN Continue Bumex Continue bronchodilators Treatment of pneumonia as below 08/23:? Patient tolerated extubation well, no obvious rest distress, patient is on nasal cannular.? Continue current management 08/24: Patient is on nasal cannular, pulse ox 98, 08/27: on RA now (2) Sepsis: ?Code(s): A41.9 - Sepsis, unspecified organism ?Status:?Acute ?Assessment and Plan: Sepsis secondary to pneumonia.? Pneumonia could be community-acquired versus aspiration since patient has a PEG tube and is on tube feeding Blood cultures have been sent and negative till now.? Sputum culture is growing MRSA Nasal MRSA screen is positive Off IV fluids now completed 7 days of vancomycin Unasyn and doxycycline He has not required any vasopressors 08/23:? Patient is afebrile, blood pressure stable, sepsis has resolved (3) Acute hypernatremia and dehydration ?Code(s): E87.0 - Hyperosmolality and hypernatremia ?Status:?Acute ?Assessment and Plan: .? Continue free water flushes and increased to 50 Sodium is improved.? Continue current free water flushes now Continue to monitor increased BUN creatinine ratio sodium 148, BUN 39, creatinine 1.0 s/w D5 water on 08/24 08/25: Hypernatremia resolved, discontinue D5 water, increase free water from 100 to200 q.4 hours, pt will receive free water 1.2 liter and pt also receives 60ml/h tube feeding 08/26: tube feeding need to replaced because of obstruction. restart D5W iv today (4) Bilateral pneumonia: ?Code(s): J18.9 - Pneumonia, unspecified organism ?Status:?Acute ?Assessment and Plan: Suspecting aspiration pneumonia Antibiotics see above completed (5) Severe protein-calorie malnutrition: ?Code(s): E43 - Unspecified severe protein-calorie malnutrit
[2023-08-27] MEDS: ATORVASTATIN 20 MG TABLET FEED TUBE (08:37)
[2023-08-27] MEDS: CENTRAL LINE FLUSH 10 ML IV PUSH ×3 (08:37→22:00)
[2023-08-27] MEDS: BUMETANIDE INJ 1 MG/4 ML VIAL IV PUSH (08:38)
[2023-08-27 09:01] VITALS: O2SAT 97
--- NOTE | 2023-08-27 09:02 | PCPTNOTE ---
Attempted to see patient, but nursing states he does better in afternoon so will come back in the afternoon.
[2023-08-27 11:42] LABS: Glucose Point of Care 100 mg/dl (65-105)
[2023-08-27 14:00] VITALS: BP 134/80; PULSE 83; RESP 20; TEMP 36.8; O2SAT 97
--- NOTE | 2023-08-27 15:50 | WPDANESPN ---
Anes - Prog Note Post-Op Date/Time: 08/27/23 15:50 Cardiovascular status: normal Respiratory status: normal Airway patency: baseline Mental status: baseline Post-Op hydration status: normal Vital Signs: Last Vital Signs Temp 36.8 C 08/27/23 14:00 Pulse 83 08/27/23 14:00 Resp 20 08/27/23 14:00 BP 134/80 08/27/23 14:00 Pulse Ox 97 08/27/23 14:00 O2 Del Method Room Air 08/27/23 14:12 O2 Flow Rate 4 08/26/23 15:29 FiO2 30 08/23/23 08:00 Pain Score (VAS): 10 I/O: Intake & Output 08/26/23 08/27/23 08/27/23 23:59 07:59 15:59 Intake Total 0 Output Total 200 450 Balance -200 -450 Laboratory Tests 08/27/23 05:39 08/27/23 05:39 08/26/23 08/26/23 08/26/23 15:51 17:56 23:59 WBC RBC Hgb Hct MCV MCH MCHC RDW Plt Count MPV Sodium Potassium Chloride Carbon Dioxide Anion Gap BUN Creatinine Estim Creat Clear Calc Estimated GFR Glucose POC Capillary Glucose 77 78 128 H Calcium Magnesium Total Bilirubin AST ALT Alkaline Phosphatase Total Protein Albumin Procalcitonin 08/27/23 08/27/23 08/27/23 05:32 05:39 11:26 WBC 8.3 RBC 3.27 L Hgb 9.9 L Hct 31.9 L MCV 97.6 MCH 30.3 MCHC 31.0 L RDW 13.1 Plt Count 171 MPV 11.2 H Sodium 141 Potassium 3.5 Chloride 109 H Carbon Dioxide 31 H Anion Gap 1 L BUN 48 H Creatinine 1.00 Estim Creat Clear Calc 43 Estimated GFR > 60 Glucose 144 H POC Capillary Glucose 135 H 100 Calcium 9.7 Magnesium 2.5 H Total Bilirubin 0.5 AST 73 H ALT 192 H Alkaline Phosphatase 90 Total Protein 6.0 L Albumin 3.1 L Procalcitonin 0.2 Post-procedural complaints: none Patient Feedback: Patient satisfied with anesthetic care.
[2023-08-27 18:54] LABS: Glucose Point of Care 114 mg/dl (65-105)
[2023-08-27 21:54] VITALS: BP 123/68; PULSE 78; RESP 18; TEMP 37.1; O2SAT 98
[2023-08-28 00:09] LABS: Glucose Point of Care 92 mg/dl (65-105)
[2023-08-28 06:00] VITALS: BP 120/60; PULSE 80; RESP 18; TEMP 37; O2SAT 100
[2023-08-28 06:28] LABS: Glucose Point of Care 107 mg/dl (65-105)
[2023-08-28] MEDS: CENTRAL LINE FLUSH 10 ML IV PUSH ×2 (08:35→15:00)
[2023-08-28] MEDS: ATORVASTATIN 20 MG TABLET FEED TUBE (08:35)
[2023-08-28] MEDS: BUMETANIDE INJ 1 MG/4 ML VIAL IV PUSH (08:35)
[2023-08-28 14:00] VITALS: BP 140/67; PULSE 88; RESP 18; TEMP 37.3; O2SAT 100
[2023-08-28 14:18] LABS: Glucose Point of Care 114 mg/dl (65-105)
--- NOTE | 2023-08-28 16:40 | PM.IMPN ---
Progress Note: A&P Assessment and Plan (1) Atrial fibrillation: Code(s): I48.91 - Unspecified atrial fibrillation Status: Acute (2) Electrolyte abnormality: Code(s): E87.8 - Other disorders of electrolyte and fluid balance, not elsewhere classified Status: Acute (3) Acute hypernatremia: Code(s): E87.0 - Hyperosmolality and hypernatremia Status: Acute (4) Bilateral pneumonia: Code(s): J18.9 - Pneumonia, unspecified organism Status: Acute (5) Severe protein-calorie malnutrition: Code(s): E43 - Unspecified severe protein-calorie malnutrition Status: Acute (6) Encephalopathy acute: Code(s): G93.40 - Encephalopathy, unspecified Status: Acute (7) Dysphagia: Qualifiers: Dysphagia type: unspecified Qualified Code(s): R13.10 - Dysphagia, unspecified Code(s): R13.10 - Dysphagia, unspecified Status: Acute Plan Abnormal CT scan of abdomen Persistent hematuria Olvin hematuria 08/27 ... Still having bleeding through Rodriguez catheter Hemoglobin stable Repeat urinalysis Ultrasound shows normal kidney no hydronephrosis CT abdomen shows the abnormal finding/nodule/mass in urinary bladder Follow-up with Urology for possible cystoscopy in am (1) Acute hypoxic respiratory failure: ?Code(s): J96.01 - Acute respiratory failure with hypoxia ?Status:?Acute ?Assessment and Plan: Patient status post intubation and extubation, currently on room air (2) Sepsis: ?Code(s): A41.9 - Sepsis, unspecified organism ?Status:?Acute ?Assessment and Plan: Sepsis secondary to pneumonia.? Pneumonia could be community-acquired versus aspiration since patient has a PEG tube and is on tube feeding Blood cultures have been sent and negative till now.? Sputum culture is growing MRSA Nasal MRSA screen is positive Off IV fluids now completed 7 days of vancomycin Unasyn and doxycycline He has not required any vasopressors 08/23:? Patient is afebrile, blood pressure stable, sepsis has resolved (3) Acute hypernatremia and dehydration ?Code(s): E87.0 - Hyperosmolality and hypernatremia ?Status:?Acute ?Assessment and Plan: .? Continue free water flushes and increased to 50 Sodium is improved.? Continue current free water flushes now Continue to monitor increased BUN creatinine ratio sodium 148, BUN 39, creatinine 1.0 s/w D5 water on 08/24 08/25: Hypernatremia resolved, discontinue D5 water, increase free water from 100 to200 q.4 hours, pt will receive free water 1.2 liter and pt also receives 60ml/h tube feeding 08/26: tube feeding need to replaced because of obstruction. restart D5W iv today (4) Bilateral pneumonia: ?Code(s): J18.9 - Pneumonia, unspecified organism ?Status:?Acute ?Assessment and Plan: Suspecting aspiration pneumonia Patient finished course of antibiotics (5) Severe protein-calorie malnutrition: ?Code(s): E43 - Unspecified severe protein-calorie malnutrition ?Status:?Acute ?Assessment and Plan: Continue tube feedings and advance to goal (6) Vascular dementia: ?Qualifiers: ?Dementia severity:?severe??Dementia behavioral or psychological symptom:?unspecified whether behavioral, psychotic, or mood disturbance or anxiety? Qualified Code(s):?F01.C0 - Vascular dementia, severe, without behavioral disturbance, psychotic disturbance, mood disturbance, and anxiety ?Code(s): F01.50 - Vascular dementia, unspecified severity, without behavioral disturbance, psychotic disturbance, mood disturbance, and anxiety ?Status:?Acute ?Assessment and Plan: Baseline vascular dementia and patient only oriented to himself Failure to thrive (7) Dysphagia: ?Qualifiers: ?Dysphagia type:?unspecified? Qualified Code(s):?R13.10 - Dysphagia, unspecified ?Code(s): R13.10 - Dysphagia, unspecified ?Status:?Acute ?Assessment and Plan: History of d
[2023-08-28 18:09] LABS: Glucose Point of Care 116 mg/dl (65-105)
[2023-08-28 22:00] VITALS: BP 147/60; PULSE 86; RESP 18; TEMP 37; O2SAT 98
[2023-08-29 01:44] LABS: Glucose Point of Care 104 mg/dl (65-105)
[2023-08-29 05:18] VITALS: BP 129/61; PULSE 81; RESP 18; TEMP 36.8; O2SAT 98
[2023-08-29 08:42] VITALS: O2SAT 92
[2023-08-29 08:56] LABS: Basophils Percent Auto 0.5 % (0.2-1.2); Eosinophils Absolute Auto 0.5 K/mm3 (0-0.3); Eosinophils Percent Auto 6.6 % (0-4.4); Hematocrit 33.5 % (42.0-52.0); Hemoglobin 10.7 g/dL (14.0-18.0); Immature Granulocyte Absolute 0.04 K/mm3 (0.00-0.031); Immature Granulocyte Percent A 0.5 % (0-0.5); Lymphocytes Absolute Auto 1.39 K/mm3 (0.9-3.2); Lymphocytes Percent Auto 17.4 % (18.3-44.2); Mean Corpuscular HGB Conc 31.9 g/dl (32-36); Mean Corpuscular Hemoglobin 30.7 pg (26-34); Mean Corpuscular Volume 96.3 fl (80-100); Mean Platelet Volume 10.7 fl (7.4-10.4); Monocytes Absolute Auto 0.6 K/mm3 (0.1-0.6); Monocytes Percent Auto 7.2 % (2.6-8.5); Neutrophils Absolute Auto 5.4 K/mm3 (1.3-6.7); Neutrophils Percent Auto 67.8 % (45.5-73.1); Platelet Count Result 206 k/mm3 (150-375); Red Blood Count 3.48 M/mm3 (4.6-6.20); Red Cell Distribution Width 13.2 % (11.5-14.5)
[2023-08-29 09:07] LABS: Alanine Aminotransferase 148 U/L (6-50); Albumin Level 3.3 g/dL (3.5-5.1); Alkaline Phosphatase 121 U/L (38-126); Anion Gap 4 mmol/L (8-16); Aspartate Amino Transferase 58 U/L (17-59); Bilirubin,Total 0.6 mg/dL (0.2-1.3); Blood Urea Nitrogen 47 mg/dL (9-20); Calcium 9.5 mg/dL (8.4-10.2); Carbon Dioxide 29 mmol/L (22-30); Chloride 104 mmol/L (98-107); Estimated CRCL calculation 43 ml/min; Estimated Glomerular Filt Rate > 60; Glucose 136 mg/dL (65-110); Potassium 3.7 mmol/L (3.4-5.0); Sodium 137 mmol/L (137-145)
[2023-08-29] MEDS: ATORVASTATIN 20 MG TABLET FEED TUBE (09:32)
[2023-08-29] MEDS: BUMETANIDE INJ 1 MG/4 ML VIAL IV PUSH (09:32)
[2023-08-29] MEDS: ENOXAPARIN 40 MG/0.4 ML SYRINGE SUB-Q (09:32)
--- NOTE | 2023-08-29 09:43 | WPDUROPN2 ---
Progress Note: A&P Assessment and Plan (1) Gross hematuria: Code(s): R31.0 - Gross hematuria Status: Acute Assessment and Plan: Onset 08/25/23. Urine is now clear, light tea-colored without clots. Continue to monitor and ensure catheter is draining well. He is on Lovenox, would recommend holding this if worsening hematuria. (2) Abnormal CT scan, pelvis: Code(s): R93.5 - Abnormal findings on diagnostic imaging of other abdominal regions, including retroperitoneum Status: Acute Assessment and Plan: CT demonstrates a 2.2 cm intraluminal nodule at the base of the bladder which may be due to median lobe from prostate versus less likely bladder mass. Will plan for outpatient cystoscopy for further evaluation. This could be completed as an inpatient if worsened hematuria, however is stable at this time Subjective Subjective Date/Time Seen: 08/29/23 09:43 Interval history: Anton is asleep during my encounter today. His Rodriguez catheter is draining light tea colored urine. Review of Systems Review of Systems: ROS unobtainable: Yes unobtainable due to mental status Exam Narrative: General: Asleep, appears comfortable, no acute distress HEENT: Normocephalic, atraumatic Respiratory: Normal respiratory effort, no accessory muscle use Abdomen: Nondistended : Rodriguez catheter draining clear light tea colored urine without clots Skin: Normal coloration, warm and dry Objective Data Vital Signs Vital Signs: Vital Signs - 24 hr 08/28/23 14:00 08/28/23 22:00 08/29/23 05:18 Temperature 99.1 F 98.6 F 98.3 F Pulse Rate 88 86 81 Respiratory Rate 18 18 18 Blood Pressure 140/67 147/60 H 129/61 Pulse Oximetry 100 98 98 Intake/Output Intake/Output: Intake & Output 08/26/23 08/27/23 08/28/23 08/29/23 23:59 23:59 23:59 23:59 Intake Total 100 1290 1062 0 Output Total 1425 1200 1500 450 Balance -1325 90 -438 -450 Meds/Results Medications: Active Medications Generic Name Dose Route Start Last Admin Trade Name Freq PRN Reason Stop Dose Admin Acetaminophen 650 mg 08/16/23 21:52 08/17/23 23:50 Acetaminophen 650 Mg Suppository RECTAL 650 mg Q6H PRN Administration Mild Pain (1-3) or Fever Atorvastatin Calcium 20 mg 08/17/23 09:00 08/29/23 09:32 Atorvastatin 20 Mg Tablet FEED TUBE 20 mg DAILY MAGEN Administration Bumetanide 1 mg 08/23/23 09:00 08/29/23 09:32 Bumetanide Inj 1 Mg/4 Ml Vial IV PUSH 1 mg QAM MAGEN Administration Dextrose 12.5 gm 08/17/23 07:52 Dextrose 50% 25 Gm/50 Ml Syringe IV PUSH PRN PRN Hypoglycemia Protocol Enoxaparin Sodium 40 mg 08/17/23 09:00 08/29/23 09:32 Enoxaparin 40 Mg/0.4 Ml Syringe SUB-Q 40 mg DAILY MAGEN Administration Glucagon 1 mg 08/17/23 07:52 Glucagon For Inj 1 Mg Vial IM PRN PRN Hypoglycemia Protocol Glucose 15 gm 08/17/23 07:52 Glucose Oral Gel 15 Gm Of Glucse In 37.5 Gm Tube PO PRN PRN Hypoglycemia Protocol Dextrose 1,000 mls @ 100 mls/hr 08/17/23 07:52 Dextrose 5% 1,000 Ml IVPB PRN PRN Hypoglycemia Protocol Insulin Aspart 2 - 5 units 08/19/23 12:00 08/29/23 09:28 Insulin Aspart (*Bkc) 100 Units/Ml SUB-Q Not Given Q6HR MAGEN Protocol Sodium Chloride 10 ml 08/19/23 14:00 08/29/23 09:33 Central Line Flush IV PUSH Not Given Q8HR MAGEN Sodium Chloride 10 ml 08/19/23 11:28 Central Line Flush IV PUSH PRN PRN with TPN bag changes Sodium Chloride 20 ml 08/19/23 11:28 Central Line Flush IV PUSH PRN PRN after blood draws Radiology Results: ITS Impressions Chest/Abdomen/Pelvis CT 08/16/23 19:25 IMPRESSION: 1. Patchy lung disease in the basilar segments of the bilateral lower lobes consistent with pneumonia. 2. Cholelithiasis. 3. Mild to moderate diverticulosis. 4. Prostatomegaly. 5. 2.2 cm intraluminal nodule at the base of bladder could repr
[2023-08-29 11:23] LABS: Glucose Point of Care 106 mg/dl (65-105)
[2023-08-29 14:00] VITALS: BP 126/61; RESP 30; TEMP 36.8; O2SAT 99
[2023-08-29] MEDS: CENTRAL LINE FLUSH 10 ML IV PUSH ×2 (14:00→22:00)
--- NOTE | 2023-08-29 16:48 | PM.IMPN ---
Progress Note: A&P Assessment and Plan (1) Atrial fibrillation: Code(s): I48.91 - Unspecified atrial fibrillation Status: Acute (2) Electrolyte abnormality: Code(s): E87.8 - Other disorders of electrolyte and fluid balance, not elsewhere classified Status: Acute (3) Acute hypernatremia: Code(s): E87.0 - Hyperosmolality and hypernatremia Status: Acute (4) Bilateral pneumonia: Code(s): J18.9 - Pneumonia, unspecified organism Status: Acute (5) Severe protein-calorie malnutrition: Code(s): E43 - Unspecified severe protein-calorie malnutrition Status: Acute (6) Encephalopathy acute: Code(s): G93.40 - Encephalopathy, unspecified Status: Acute (7) Dysphagia: Qualifiers: Dysphagia type: unspecified Qualified Code(s): R13.10 - Dysphagia, unspecified Code(s): R13.10 - Dysphagia, unspecified Status: Acute Plan Abnormal CT scan of abdomen Persistent hematuria Olvin hematuria 08/27 ... Still having bleeding through Rodriguez catheter although slowly improving to light tea-colored status without clots Hemoglobin stable Repeat urinalysis Ultrasound shows normal kidney no hydronephrosis CT abdomen shows the abnormal finding/nodule/mass in urinary bladder Continue with follow-up with Urology ... With required cystoscopy as an outpatient (1) Acute hypoxic respiratory failure: ?Code(s): J96.01 - Acute respiratory failure with hypoxia ?Status:?Acute ?Assessment and Plan: Patient status post intubation and extubation, currently on room air (2) Sepsis: ?Code(s): A41.9 - Sepsis, unspecified organism ?Status:?Acute ?Assessment and Plan: Sepsis secondary to pneumonia.? Pneumonia could be community-acquired versus aspiration since patient has a PEG tube and is on tube feeding Blood cultures have been sent and negative till now.? Sputum culture is growing MRSA Nasal MRSA screen is positive Off IV fluids now completed 7 days of vancomycin Unasyn and doxycycline He has not required any vasopressors 08/23:? Patient is afebrile, blood pressure stable, sepsis has resolved (3) Acute hypernatremia and dehydration ?Code(s): E87.0 - Hyperosmolality and hypernatremia ?Status:?Acute ?Assessment and Plan: .? Continue free water flushes and increased to 50 Sodium is improved.? Continue current free water flushes now Continue to monitor increased BUN creatinine ratio sodium 148, BUN 39, creatinine 1.0 s/w D5 water on 08/24 08/25: Hypernatremia resolved, discontinue D5 water, increase free water from 100 to200 q.4 hours, pt will receive free water 1.2 liter and pt also receives 60ml/h tube feeding 08/26: tube feeding need to replaced because of obstruction. restart D5W iv today (4) Bilateral pneumonia: ?Code(s): J18.9 - Pneumonia, unspecified organism ?Status:?Acute ?Assessment and Plan: Suspecting aspiration pneumonia Patient finished course of antibiotics (5) Severe protein-calorie malnutrition: ?Code(s): E43 - Unspecified severe protein-calorie malnutrition ?Status:?Acute ?Assessment and Plan: Continue tube feedings and advance to goal (6) Vascular dementia: ?Qualifiers: ?Dementia severity:?severe??Dementia behavioral or psychological symptom:?unspecified whether behavioral, psychotic, or mood disturbance or anxiety? Qualified Code(s):?F01.C0 - Vascular dementia, severe, without behavioral disturbance, psychotic disturbance, mood disturbance, and anxiety ?Code(s): F01.50 - Vascular dementia, unspecified severity, without behavioral disturbance, psychotic disturbance, mood disturbance, and anxiety ?Status:?Acute ?Assessment and Plan: Baseline vascular dementia and patient only oriented to himself Failure to thrive (7) Dysphagia: ?Qualifiers: ?Dysphagia type:?unspecified? Qualified Code(s):?R13.10 - Dysphagia, unspecified ?Code(
[2023-08-29 17:51] LABS: Glucose Point of Care 86 mg/dl (65-105)
--- NOTE | 2023-08-29 18:31 | PC.NURSE ---
Pt is MRSA positive, isolation still inplace. Pt getting tube feeding at goal rate of 60. Pt getting q4 100ml flush. Pt tolerating well. Pt unable to voice needs. Pt unable to participate and contribute in plan of care. Will continue to monitor pt.
[2023-08-29 22:00] VITALS: BP 128/64; PULSE 79; RESP 22; TEMP 36.9; O2SAT 99
[2023-08-30 00:51] LABS: Glucose Point of Care 119 mg/dl (65-105)
[2023-08-30 06:00] VITALS: BP 124/70; PULSE 88; RESP 20; TEMP 37.2; O2SAT 96
[2023-08-30 06:14] LABS: Basophils Percent Auto 0.4 % (0.2-1.2); Eosinophils Absolute Auto 0.5 K/mm3 (0-0.3); Eosinophils Percent Auto 4.8 % (0-4.4); Hematocrit 28.6 % (42.0-52.0); Hemoglobin 9.1 g/dL (14.0-18.0); Immature Granulocyte Absolute 0.05 K/mm3 (0.00-0.031); Immature Granulocyte Percent A 0.5 % (0-0.5); Lymphocytes Absolute Auto 1.47 K/mm3 (0.9-3.2); Lymphocytes Percent Auto 15.7 % (18.3-44.2); Mean Corpuscular HGB Conc 31.8 g/dl (32-36); Mean Corpuscular Hemoglobin 30.2 pg (26-34); Mean Platelet Volume 10.9 fl (7.4-10.4); Monocytes Absolute Auto 0.7 K/mm3 (0.1-0.6); Monocytes Percent Auto 7.8 % (2.6-8.5); Neutrophils Absolute Auto 6.6 K/mm3 (1.3-6.7); Neutrophils Percent Auto 70.8 % (45.5-73.1); Platelet Count Result 179 k/mm3 (150-375); Red Blood Count 3.01 M/mm3 (4.6-6.20); Red Cell Distribution Width 13.2 % (11.5-14.5); White Blood Count 9.4 K/mm3 (4.5-10.0)
[2023-08-30 06:17] LABS: Glucose Point of Care 138 mg/dl (65-105)
[2023-08-30 06:25] LABS: Anion Gap 3 mmol/L (8-16); Blood Urea Nitrogen 42 mg/dL (9-20); Calcium 9.3 mg/dL (8.4-10.2); Carbon Dioxide 30 mmol/L (22-30); Chloride 103 mmol/L (98-107); Estimated CRCL calculation 47 ml/min; Estimated Glomerular Filt Rate > 60; Glucose 123 mg/dL (65-110); Potassium 3.5 mmol/L (3.4-5.0); Sodium 136 mmol/L (137-145)
[2023-08-30] MEDS: CENTRAL LINE FLUSH 10 ML IV PUSH ×2 (06:47→13:25)
[2023-08-30] MEDS: ATORVASTATIN 20 MG TABLET FEED TUBE (09:16)
[2023-08-30] MEDS: ENOXAPARIN 40 MG/0.4 ML SYRINGE SUB-Q (09:16)
[2023-08-30] MEDS: BUMETANIDE INJ 1 MG/4 ML VIAL IV PUSH (09:16)
--- NOTE | 2023-08-30 09:41 | PCNFU ---
Nutrition Follow-Up Complete: Unintended weight loss as related to decreased ability to consume sufficient energy as related to 8% (15 ibs) weight loss, in 3 weeks. Goal:Meet estimated nutritional needs. Pt meeting goal via tube feeding Pt current nutrition is Jevity 1.5 tube feeding. Nutrition recommendation: continue with current plan of care Last recorded weight is 79.4 kg. Bowel Motility: +BM 08/29 Labs Reviewed: Hgb:9.1, HCT:28.6, NA:136, BUN:42, Glu:123 Meds Noted: bumex, lovenox, novolog Skin: no skin issues noted Additional Notes: Pt is nonverbal, has PEG. Meeting needs with current tube feeding: Jevity 1.5@ 60 ml/hr, this provides 1980 kcal, 84 g protein, 1003 ml free water. 200 ml flushes q 4 hours = 2000 ml/day. Agree with current orders Will monitor weight, labs, skin, meds, tube feedings every Tuesday and Tuesday.
--- NOTE | 2023-08-30 09:51 | WPDUROPN2 ---
Progress Note: A&P Assessment and Plan (1) Gross hematuria: Code(s): R31.0 - Gross hematuria Status: Acute Assessment and Plan: Onset 08/25/23. Urine is now clear yellow without clots. Continue to monitor and ensure catheter is draining well. He is on Lovenox, would recommend holding this if recurrence of hematuria. (2) Abnormal CT scan, pelvis: Code(s): R93.5 - Abnormal findings on diagnostic imaging of other abdominal regions, including retroperitoneum Status: Acute Assessment and Plan: CT demonstrates a 2.2 cm intraluminal nodule at the base of the bladder which may be due to median lobe from prostate versus less likely bladder mass. Will plan for outpatient cystoscopy for further evaluation. Subjective Subjective Date/Time Seen: 08/30/23 09:51 Interval history: Anton is awake today, not able to provide any history due to his mental status. His ramos catheter is draining clear yellow urine. Review of Systems Review of Systems: ROS unobtainable: Yes unobtainable due to mental status Exam Narrative: General: Awake, appears comfortable, no acute distress HEENT: Normocephalic, atraumatic Respiratory: Normal respiratory effort, no accessory muscle use Abdomen: Nondistended : Ramos catheter draining clear yellow urine without clots Skin: Normal coloration, warm and dry Neurologic: no focal neuro deficits noted Objective Data Vital Signs Vital Signs: Vital Signs - 24 hr 08/29/23 14:00 08/29/23 22:00 08/30/23 06:00 Temperature 98.2 F 98.4 F 99 F Pulse Rate 79 88 Respiratory Rate 30 H 22 H 20 Blood Pressure 126/61 128/64 124/70 Pulse Oximetry 99 99 96 Intake/Output Intake/Output: Intake & Output 08/27/23 08/28/23 08/29/23 08/30/23 23:59 23:59 23:59 23:59 Intake Total 1290 1062 1865 Output Total 1200 1500 1450 500 Balance 90 -438 415 -500 Meds/Results Medications: Active Medications Generic Name Dose Route Start Last Admin Trade Name Freq PRN Reason Stop Dose Admin Acetaminophen 650 mg 08/16/23 21:52 08/17/23 23:50 Acetaminophen 650 Mg Suppository RECTAL 650 mg Q6H PRN Administration Mild Pain (1-3) or Fever Atorvastatin Calcium 20 mg 08/17/23 09:00 08/30/23 09:16 Atorvastatin 20 Mg Tablet FEED TUBE 20 mg DAILY MAGEN Administration Bumetanide 1 mg 08/23/23 09:00 08/30/23 09:16 Bumetanide Inj 1 Mg/4 Ml Vial IV PUSH 1 mg QAM MAGEN Administration Dextrose 12.5 gm 08/17/23 07:52 Dextrose 50% 25 Gm/50 Ml Syringe IV PUSH PRN PRN Hypoglycemia Protocol Enoxaparin Sodium 40 mg 08/17/23 09:00 08/30/23 09:16 Enoxaparin 40 Mg/0.4 Ml Syringe SUB-Q 40 mg DAILY MAGEN Administration Glucagon 1 mg 08/17/23 07:52 Glucagon For Inj 1 Mg Vial IM PRN PRN Hypoglycemia Protocol Glucose 15 gm 08/17/23 07:52 Glucose Oral Gel 15 Gm Of Glucse In 37.5 Gm Tube PO PRN PRN Hypoglycemia Protocol Dextrose 1,000 mls @ 100 mls/hr 08/17/23 07:52 Dextrose 5% 1,000 Ml IVPB PRN PRN Hypoglycemia Protocol Insulin Aspart 2 - 5 units 08/19/23 12:00 08/30/23 06:48 Insulin Aspart (*Bkc) 100 Units/Ml SUB-Q Not Given Q6HR MAGEN Protocol Sodium Chloride 10 ml 08/19/23 14:00 08/30/23 06:47 Central Line Flush IV PUSH 10 ml Q8HR MAGEN Administration Sodium Chloride 10 ml 08/19/23 11:28 Central Line Flush IV PUSH PRN PRN with TPN bag changes Sodium Chloride 20 ml 08/19/23 11:28 Central Line Flush IV PUSH PRN PRN after blood draws Radiology Results: ITS Impressions Chest/Abdomen/Pelvis CT 08/16/23 19:25 IMPRESSION: 1. Patchy lung disease in the basilar segments of the bilateral lower lobes consistent with pneumonia. 2. Cholelithiasis. 3. Mild to moderate diverticulosis. 4. Prostatomegaly. 5. 2.2 cm intraluminal nodule at the base of bladder could represent exophytic nodular ext
[2023-08-30 11:47] LABS: Glucose Point of Care 110 mg/dl (65-105)
[2023-08-30 13:00] LABS: MRSA (PCR) DETECTED (NOT DETECTE)
[2023-08-30] MEDS: MUPIROCIN 2% OINT 22 GM TUBE 1 APPLIC EACH NARE ×2 (13:24→21:26)
[2023-08-30 14:00] VITALS: BP 127/68; PULSE 81; RESP 18; TEMP 37.6; O2SAT 97
[2023-08-30] MEDS: NEOMYCIN/POLYMYXIN/BACITRACIN OINTMENT PACKET 1 PACKET (15:10)
--- NOTE | 2023-08-30 16:07 | PM.DS ---
DS: Admitting Diagnosis Discharge Date 08/30/2023: Admitting Diagnosis (1) Acute hypoxic respiratory failure: ?Code(s): J96.01 - Acute respiratory failure with hypoxia ?Status:?Acute (2) Bilateral pneumonia: ?Code(s): J18.9 - Pneumonia, unspecified organism ?Status:?Acute (3) Sepsis: ?Code(s): A41.9 - Sepsis, unspecified organism ?Status:?Acute (4) CAROLYNN (acute kidney injury): ?Code(s): N17.9 - Acute kidney failure, unspecified ?Status:?Acute (5) Acute hypernatremia: ?Code(s): E87.0 - Hyperosmolality and hypernatremia ?Status:?Acute DS: Discharge Diagnosis Discharge Diagnosis (1) Abnormal CT scan, pelvis: Code(s): R93.5 - Abnormal findings on diagnostic imaging of other abdominal regions, including retroperitoneum Status: Acute (2) Atrial fibrillation: Code(s): I48.91 - Unspecified atrial fibrillation Status: Acute (3) Electrolyte abnormality: Code(s): E87.8 - Other disorders of electrolyte and fluid balance, not elsewhere classified Status: Acute (4) Acute hypernatremia: Code(s): E87.0 - Hyperosmolality and hypernatremia Status: Acute (5) CAROLYNN (acute kidney injury): Code(s): N17.9 - Acute kidney failure, unspecified Status: Acute (6) Bilateral pneumonia: Code(s): J18.9 - Pneumonia, unspecified organism Status: Acute (7) Acute hypoxic respiratory failure: Code(s): J96.01 - Acute respiratory failure with hypoxia Status: Acute (8) Sepsis: Code(s): A41.9 - Sepsis, unspecified organism Status: Acute (9) Severe protein-calorie malnutrition: Code(s): E43 - Unspecified severe protein-calorie malnutrition Status: Acute (10) Essential hypertension: Code(s): I10 - Essential (primary) hypertension Status: Acute (11) Encephalopathy acute: Code(s): G93.40 - Encephalopathy, unspecified Status: Acute (12) Vascular dementia: Qualifiers: Dementia severity: severe Dementia behavioral or psychological symptom: unspecified whether behavioral, psychotic, or mood disturbance or anxiety Qualified Code(s): F01.C0 - Vascular dementia, severe, without behavioral disturbance, psychotic disturbance, mood disturbance, and anxiety Code(s): F01.50 - Vascular dementia, unspecified severity, without behavioral disturbance, psychotic disturbance, mood disturbance, and anxiety Status: Acute (13) Altered mental status: Qualifiers: Altered mental status type: unspecified Qualified Code(s): R41.82 - Altered mental status, unspecified Code(s): R41.82 - Altered mental status, unspecified Status: Acute (14) Dysphagia: Qualifiers: Dysphagia type: unspecified Qualified Code(s): R13.10 - Dysphagia, unspecified Code(s): R13.10 - Dysphagia, unspecified Status: Acute (15) Aphasia: Code(s): R47.01 - Aphasia Status: Acute (16) Weakness: Code(s): R53.1 - Weakness Status: Acute (17) Gross hematuria: Code(s): R31.0 - Gross hematuria Status: Acute (18) MRSA (methicillin resistant Staphylococcus aureus) colonization: Code(s): Z22.322 - Carrier or suspected carrier of Methicillin resistant Staphylococcus aureus Status: Acute DS: Summary Hospital Course Reason for hospitalization: Patient admitted with altered mental status and shortness of breath Hospital Course: H&P: HPI History of Present Illness Date/Time: 08/16/23? 23:53 Chief Complaint: AMS and SOB Narrative: An 88-year-old male with past medical history of vascular dementia, hypertension, aphasia and alert and oriented x1 at baseline, was on 2 L of oxygen at retirement facility for potential pneumonia.? He was sent to the ER for altered mental status and shortness of breath.? His oxygen requirement was increased to 4 L O2 nasal cannula prior to arrival to the ED. at his basel
[2023-08-30 18:10] LABS: Glucose Point of Care 124 mg/dl (65-105)
[2023-08-30 20:53] VITALS: BP 138/76; PULSE 90; RESP 18; TEMP 37.2; O2SAT 100
[2023-08-31 01:36] LABS: Glucose Point of Care 124 mg/dl (65-105)
[2023-08-31 06:00] VITALS: BP 138/83; PULSE 88; RESP 18; TEMP 36.6; O2SAT 98
[2023-08-31 06:24] LABS: Glucose Point of Care 132 mg/dl (65-105)
[2023-08-31 06:45] LABS: Basophils Percent Auto 0.5 % (0.2-1.2); Eosinophils Absolute Auto 0.5 K/mm3 (0-0.3); Eosinophils Percent Auto 6.2 % (0-4.4); Hematocrit 32.7 % (42.0-52.0); Hemoglobin 10.5 g/dL (14.0-18.0); Immature Granulocyte Absolute 0.04 K/mm3 (0.00-0.031); Immature Granulocyte Percent A 0.5 % (0-0.5); Lymphocytes Percent Auto 17.4 % (18.3-44.2); Mean Corpuscular HGB Conc 32.1 g/dl (32-36); Mean Corpuscular Hemoglobin 30.5 pg (26-34); Mean Corpuscular Volume 95.1 fl (80-100); Mean Platelet Volume 10.9 fl (7.4-10.4); Monocytes Absolute Auto 0.6 K/mm3 (0.1-0.6); Monocytes Percent Auto 8.6 % (2.6-8.5); Neutrophils Percent Auto 66.8 % (45.5-73.1); Platelet Count Result 208 k/mm3 (150-375); Red Blood Count 3.44 M/mm3 (4.6-6.20); Red Cell Distribution Width 13.5 % (11.5-14.5); White Blood Count 7.5 K/mm3 (4.5-10.0)
[2023-08-31 06:55] LABS: Anion Gap 0 mmol/L (8-16); Blood Urea Nitrogen 39 mg/dL (9-20); Calcium 9.7 mg/dL (8.4-10.2); Carbon Dioxide 32 mmol/L (22-30); Chloride 102 mmol/L (98-107); Estimated CRCL calculation 43 ml/min; Estimated Glomerular Filt Rate > 60; Glucose 122 mg/dL (65-110); Potassium 3.8 mmol/L (3.4-5.0); Sodium 134 mmol/L (137-145)
[2023-08-31 08:15] VITALS: O2SAT 97
[2023-08-31] MEDS: BUMETANIDE 1 MG TABLET PO (09:43)
[2023-08-31] MEDS: ENOXAPARIN 40 MG/0.4 ML SYRINGE SUB-Q (09:43)
[2023-08-31] MEDS: ATORVASTATIN 20 MG TABLET FEED TUBE (09:44)
[2023-08-31] MEDS: MUPIROCIN 2% OINT 22 GM TUBE 1 APPLIC EACH NARE (09:45)
--- NOTE | 2023-08-31 11:16 | PM.IMPN ---
Progress Note: A&P Assessment and Plan (1) Abnormal CT scan, pelvis: Code(s): R93.5 - Abnormal findings on diagnostic imaging of other abdominal regions, including retroperitoneum Status: Acute (2) Atrial fibrillation: Code(s): I48.91 - Unspecified atrial fibrillation Status: Acute (3) Electrolyte abnormality: Code(s): E87.8 - Other disorders of electrolyte and fluid balance, not elsewhere classified Status: Acute (4) Acute hypernatremia: Code(s): E87.0 - Hyperosmolality and hypernatremia Status: Acute (5) CAROLYNN (acute kidney injury): Code(s): N17.9 - Acute kidney failure, unspecified Status: Acute (6) Bilateral pneumonia: Code(s): J18.9 - Pneumonia, unspecified organism Status: Acute (7) Acute hypoxic respiratory failure: Code(s): J96.01 - Acute respiratory failure with hypoxia Status: Acute (8) Sepsis: Code(s): A41.9 - Sepsis, unspecified organism Status: Acute (9) Severe protein-calorie malnutrition: Code(s): E43 - Unspecified severe protein-calorie malnutrition Status: Acute (10) Essential hypertension: Code(s): I10 - Essential (primary) hypertension Status: Acute (11) Encephalopathy acute: Code(s): G93.40 - Encephalopathy, unspecified Status: Acute (12) Vascular dementia: Qualifiers: Dementia severity: severe Dementia behavioral or psychological symptom: unspecified whether behavioral, psychotic, or mood disturbance or anxiety Qualified Code(s): F01.C0 - Vascular dementia, severe, without behavioral disturbance, psychotic disturbance, mood disturbance, and anxiety Code(s): F01.50 - Vascular dementia, unspecified severity, without behavioral disturbance, psychotic disturbance, mood disturbance, and anxiety Status: Acute (13) Altered mental status: Qualifiers: Altered mental status type: unspecified Qualified Code(s): R41.82 - Altered mental status, unspecified Code(s): R41.82 - Altered mental status, unspecified Status: Acute (14) Dysphagia: Qualifiers: Dysphagia type: unspecified Qualified Code(s): R13.10 - Dysphagia, unspecified Code(s): R13.10 - Dysphagia, unspecified Status: Acute (15) Aphasia: Code(s): R47.01 - Aphasia Status: Acute (16) Weakness: Code(s): R53.1 - Weakness Status: Acute (17) Gross hematuria: Code(s): R31.0 - Gross hematuria Status: Acute (18) MRSA (methicillin resistant Staphylococcus aureus) colonization: Code(s): Z22.322 - Carrier or suspected carrier of Methicillin resistant Staphylococcus aureus Status: Acute Plan Abnormal CT scan of abdomen Persistent hematuria Olvin hematuria 08/27 ... Now resolved. Rodriguez consider discontinued. Hemoglobin stable Repeat urinalysis Ultrasound shows normal kidney no hydronephrosis CT abdomen shows the abnormal finding/nodule/mass in urinary bladder Continue with follow-up with Urology ... With required cystoscopy as an outpatient DC aspirin/anticoagulation as per Urology if hematuria recurs (1) Acute hypoxic respiratory failure: ?Code(s): J96.01 - Acute respiratory failure with hypoxia ?Status:?Acute ?Assessment and Plan: Patient status post intubation and extubation, currently on room air (2) Sepsis: ?Code(s): A41.9 - Sepsis, unspecified organism ?Status:?Acute ?Assessment and Plan: Sepsis secondary to pneumonia.? Pneumonia could be community-acquired versus aspiration since patient has a PEG tube and is on tube feeding Blood cultures have been sent and negative till now.? Sputum culture is growing MRSA Nasal MRSA screen is positive Off IV fluids now completed 7 days of vancomycin Unasyn and doxycycline He has not required any vasopressors 08/23:? Patient is afebrile, blood pressure stable, sepsis has resolved (3) Acute hypernatremia and de
== END 2023-08-31 11:40 | DRG 870 ==
LOC: ANHED 21:19 → ANHICU 22:56 → ANH3MEDSUR 08-23 18:36
PROVIDERS: Hospitalist; Internal Medicine; Internal Medicine Gastroenterology; Admitting Provider Student in an Organized Health Care Education/Training Program; Emergency Provider Physician Assistant; PCP Internal Medicine; Visit Provider Family Medicine
PROC: 0DH63UZ Insertion of Feeding Device into Stomach, Percutaneous Approach (ICD-10-PCS; CPT 43246; principal; 2023-08-26 16:00)
DX: A41.9 Sepsis, unspecified organism (principal); J96.01 Acute respiratory failure with hypoxia; J69.0 Pneumonitis due to inhalation of food and vomit; E43 Unspecified severe protein-calorie malnutrition; N17.9 Acute kidney failure, unspecified; E87.0 Hyperosmolality and hypernatremia; R47.01 Aphasia; G93.40 Encephalopathy, unspecified; K94.23 Gastrostomy malfunction; I48.91 Unspecified atrial fibrillation; I10 Essential (primary) hypertension; E87.6 Hypokalemia; E78.5 Hyperlipidemia, unspecified; N40.0 Benign prostatic hyperplasia without lower urinary tract symptoms; N32.9 Bladder disorder, unspecified; R31.0 Gross hematuria; H35.3220 Exudative age-related macular degeneration, left eye, stage unspecified; H40.9 Unspecified glaucoma; F01.C0 Vascular dementia, severe, without behavioral disturbance, psychotic disturbance, mood disturbance, and anxiety; Z79.82 Long term (current) use of aspirin; Z99.81 Dependence on supplemental oxygen; Z22.322 Carrier or suspected carrier of Methicillin resistant Staphylococcus aureus
CPT/HCPCS: 31500; 36415; 36569; 36600; 43246; 71045; 71260; 74177; 76770; 80048; 80053; 80202; 81001; 82375; 82805; 82948; 83050; 83605; 83690; 83735; 83880; 84100; 84145; 85025; 85027; 85610; 85730; 86140; 87040; 87070; 87181; 87205; 87641; 93005; 93306; 94002; 94003; 96361; 96365; 97110; 97162; 97165; 97530; 99291; A9270; C9113; J0282; J0295; J0456; J0696; J1170; J1650; J1836; J1939; J1940; J2001; J2060; J2185; J2250; J2704; J3010; J3370; J7030; J7040; J7060; J7070; J7120; P9047; Q9967

== ENCOUNTER 2023-09-11 06:17 | Emergency (ER) | payer MEDICARE, SELFPAY ==
[2023-09-11 06:14] VITALS: BP 120/74; PULSE 82; RESP 16; TEMP 36.2; O2SAT 98
--- NOTE | 2023-09-11 07:18 | ED.GENADULT ---
HPI - General Adult General Chief complaint: Unspecified Stated complaint: g tube removal Time Seen by Provider: 09/11/23 07:13 Source: patient and EMS Mode of arrival: EMS History of Present Illness HPI narrative: 88 years old white male came from long term for feeding tube replacement. Patient came with feeding tube in place, there is no port for injection of the food. And the tube need to be replaced. Related Data Home Medications Medication Instructions Recorded Confirmed PreserVision AREDS-2 1 cap PO DAILY 07/26/23 08/17/23 aspirin 81 mg tablet,delayed 81 mg PO DAILY 07/26/23 08/17/23 release atorvastatin 20 mg tablet 20 mg PO DAILY 07/26/23 08/17/23 brimonidine 0.2 %-timolol 0.5 % 1 drp ophthalmic (eye) HS 07/26/23 08/17/23 eye drops buspirone 5 mg tablet 2.5 mg PO BID 07/26/23 08/17/23 chlorthalidone 25 mg tablet 25 mg PO DAILY 07/26/23 08/17/23 lycopene 10 mg capsule 10 mg PO DAILY 07/26/23 08/17/23 metoprolol succinate 50 mg 50 mg PO DAILY 07/26/23 08/17/23 tablet,extended release 24 hr potassium chloride 20 mEq 20 meq PO DAILY 07/26/23 08/17/23 tablet,extended release(part/cryst) (Klor-Con M) quetiapine 25 mg tablet 25 mg PO HS PRN Sleep 07/26/23 08/17/23 tamsulosin 0.4 mg capsule 0.4 mg PO DAILY 07/26/23 08/17/23 Allergies Allergy/AdvReac Type Severity Reaction Status Date / Time No Known Allergies Allergy Verified 08/26/23 14:26 Review of Systems Review of Systems: ROS unobtainable: Yes unobtainable due to mental status PMFSH Past Medical History Medical History Age-related macular degeneration, wet, left eye BPH (benign prostatic hyperplasia) Dementia Encephalopathy acute Essential hypertension Glaucoma Hyperlipidemia MRSA (methicillin resistant Staphylococcus aureus) colonization Surgical History Surgical History Status post cataract extraction of both eyes with insertion of intraocular lens Family History Family History Sibling Acute myocardial infarction Cerebrovascular accident Chronic obstructive pulmonary disease Mother Hypertension Acute myocardial infarction Social History Social History Social History: The patient lives at home with his until recent hospitalization at [facility] early July 2023. Code status: Full code Surrogate decision maker: Smoking status: Never smoker Alcohol intake: never Substance use: never Do You Feel Safe in your Home?: Yes Lack of Transportation: No Lack of Food: Never True Current Housing: I Have Housing Concerned About Future Housing: No Difficulty Paying Gas/Electric Bills: No Difficulty Paying for Meds: No Currently Unemployed: No Education: Bachelor's Degree Difficulty w/ Childcare or Family Care: No Spiritual care concerns: No Exam Narrative: General appearance: Well-developed, well-nourished Skin: Normal color Head: Normocephalic, nontraumatic Eyes: Clear conjunctiva ENT: Dry oral cavity Neck: Supple, nontender Chest and respiratory: Airway patent, no respiratory distress, no accessory muscle use Heart: Regular rate/rhythm Abdomen: Soft, nontender, no organomegaly, quiet bowel sounds, feeding tube in place which look like that the distal part of the tube is torn, no ports for food injection Neurologic: Alert Course Vital Signs Vital signs: Vital Signs Temperature 36.2 C L 09/11/23 06:14 Pulse Rate 82 09/11/23 06:14 Respiratory Rate 16 09/11/23 06:14 Blood Pressure 120/74 09/11/23 06:14 Pulse Oximetry 98 09/11/23 06:14 Oxygen Delivery Room Air 09/11/23 06:14 Temperatur
[2023-09-11 07:41] VITALS: BP 140/84; PULSE 88; RESP 14; O2SAT 98
--- NOTE | 2023-09-22 13:03 | PC.NURSE ---
LATE ENTRY This note is being entered to document information to the patient's record. The following information was omitted on [09/11/23], by [Dr. Kramer]. DAMEON for insertion of replacement G-tube.
== END 2023-09-11 09:26 ==
PROVIDERS: Emergency Provider Emergency Medicine; PCP Internal Medicine
DX: Z43.1 Encounter for attention to gastrostomy (principal); F03.90 Unspecified dementia, unspecified severity, without behavioral disturbance, psychotic disturbance, mood disturbance, and anxiety; I10 Essential (primary) hypertension; E78.5 Hyperlipidemia, unspecified; N40.0 Benign prostatic hyperplasia without lower urinary tract symptoms; H40.9 Unspecified glaucoma; Z86.14 Personal history of Methicillin resistant Staphylococcus aureus infection; Z96.1 Presence of intraocular lens; Z98.42 Cataract extraction status, left eye; Z98.41 Cataract extraction status, right eye; Z79.82 Long term (current) use of aspirin
CPT/HCPCS: 43762; 99284

== ENCOUNTER 2023-10-03 08:14 | Outpatient (CLI) | payer OTHER, MEDICARE, SELFPAY ==
--- NOTE | ~2023-10-03 | XR_ITS ---
EXAMINATION: XR barium swallow modified DATE: 10/03/2023 09:22 INDICATION: Dysphagia. TECHNIQUE: The patient was given barium-containing material of multiple consistencies to swallow by t he speech pathologist while I performed fluoroscopy. Fluoroscopy exposure time was 2.4 minutes. The n umber of fluoroscopy images saved to the PACS was 1. Dose-area product was 5.3 Gy-cm^2. FINDINGS: There is vallecular residue. No laryngeal penetration or aspiration. IMPRESSION: 1. No laryngeal penetration or aspiration. 2. Please refer to the speech therapy report for recommendations. Reviewed, dictated and finalized at location A.
--- NOTE | 2023-10-03 10:05 | REHSTMBS ---
Assessment and note entered by Fawn Manzano, RELIABILITY SPECIALIST Modified Barium Swallow Evaluation Feeding Type Recommended Oral Food Consistency Regular, Level 7 Liquid Consistency Thin (0) ST Clinical Summary MODIFIED BARIUM SWALLOW STUDY (MBS) This patient was seen for a Modified Barium Swallow study at the request of his physician. Patient has a history of dysphagia and has had cognitive deficits that have prevented him from being a safe oral feeder. His speech language pathologist from his facility reports he has a history of pneumonia but she has been having him have trials off food and liquid and exhibiting no signs of aspiration. The patient was viewed in the lateral position to the level of C5/C6. Patient was presented with graduated amounts of thin liquid contrast medium per spoon, then per cup and per straw, pudding mixed with semi-solid contrast medium, and then fruit piece and cracker, both coated with the semi -solid mixture. He exhibited quick swallows with no significant pharyngeal residue and no penetration/aspiration into the airway. Results suggest that this patient's swallowing skills are now within normal limits. He may begin a Regular Diet and Regular Liquids with supervision from staff to ensure no negative behaviors that could lead to aspiration, for example, take small bites and sips, cut food into small pieces, do not quickly attempt to consume multiple swallows of liquids at a time. Thank you for this referral.
== END 2023-10-03 08:15 | disposition home or self-care (01) ==
PROVIDERS: PCP Internal Medicine; Visit Provider Internal Medicine
DX: R13.10 Dysphagia, unspecified (principal)
CPT/HCPCS: 92611

== ENCOUNTER 2023-12-15 12:20 | Emergency (ER) | payer MEDICARE, SELFPAY ==
[2023-12-15] VITALS (16 sets, daily range): BP systolic 140–168; BP diastolic 67–123; PULSE 54–74; RESP 12–24; TEMP 36.4; O2SAT 96–100
--- NOTE | ~2023-12-15 | XR_ITS ---
XR chest 2V 12/15/2023 13:33 Indication: Increased weakness. Confusion. Procedure: 2 view chest Comparison: Comparison to multiple prior studies sequentially, with oldest reviewed study dated 08/21. Findings: Borderline heart size. Mild interstitial edema. No pleural effusion. No pneumothorax. No ac [place] osseous abnormality. Impression: 1: Mild interstitial edema. Reviewed, dictated and finalized at location B. Impression: 1: Mild interstitial edema.
--- NOTE | 2023-12-15 12:21 | ECG_ITS ---
Test Date: 2023-12-15 12:21:51 Measurements Intervals [place] Rate: 56 P: 54 ID: [id number] QRS: -37 QRSD: 90 T: 8 QT: 407 QTc: 395 Interpretive Statements SINUS BRADYCARDIA MARKED LEFT AXIS DEVIATION [QRS AXIS < -30] LOW QRS VOLTAGE IN PRECORDIAL LEADS [QRS DEFLECTION < 1.0 mV IN CHEST LEADS] PATTERN CONSISTENT WITH PULMONARY DISEASE No previous ECG available for comparison Electronically Signed On 12-17-2023 15:40:47 CDT by Rodney Murray M.D.
[2023-12-15 13:19] LABS: Basophils Percent Auto 0.4 % (0.2-1.2); Eosinophils Absolute Auto 0.3 K/mm3 (0-0.3); Eosinophils Percent Auto 3.1 % (0-4.4); Hematocrit 38.4 % (42.0-52.0); Hemoglobin 12.3 g/dL (14.0-18.0); Immature Granulocyte Absolute 0.03 K/mm3 (0.00-0.031); Immature Granulocyte Percent A 0.3 % (0-0.5); Lymphocytes Absolute Auto 2.53 K/mm3 (0.9-3.2); Lymphocytes Percent Auto 27.4 % (18.3-44.2); Mean Corpuscular Hemoglobin 29.9 pg (26-34); Mean Corpuscular Volume 93.4 fl (80-100); Mean Platelet Volume 10.3 fl (7.4-10.4); Monocytes Absolute Auto 0.9 K/mm3 (0.1-0.6); Monocytes Percent Auto 10.1 % (2.6-8.5); Neutrophils Absolute Auto 5.4 K/mm3 (1.3-6.7); Neutrophils Percent Auto 58.7 % (45.5-73.1); Platelet Count Result 215 k/mm3 (150-375); Red Blood Count 4.11 M/mm3 (4.6-6.20); Red Cell Distribution Width 13.5 % (11.5-14.5); White Blood Count 9.2 K/mm3 (4.5-10.0)
--- NOTE | 2023-12-15 13:19 | PC.NURSE ---
fiberglass technician attempted to get a urine sample from patient with straight catheter and met resistance. when taking the catheter out there was presence of bright red blood at the tip of cath. provider notified
[2023-12-15 13:37] LABS: Alanine Aminotransferase 15 U/L (6-50); Albumin Level 3.9 g/dL (3.5-5.1); Alkaline Phosphatase 65 U/L (38-126); Anion Gap 7 mmol/L (4-12); Aspartate Amino Transferase 19 U/L (17-59); Bilirubin,Total 0.4 mg/dL (0.2-1.3); Blood Urea Nitrogen 30 mg/dL (9-20); Calcium 9.7 mg/dL (8.4-10.2); Carbon Dioxide 28 mmol/L (22-30); Chloride 106 mmol/L (98-107); Estimated CRCL calculation 32 ml/min; Estimated Glomerular Filt Rate 48; Glucose 96 mg/dL (65-110); Potassium 3.6 mmol/L (3.4-5.0); Sodium 141 mmol/L (137-145)
--- NOTE | 2023-12-15 14:19 | PC.NURSE ---
external condom catheter placed on patient per provider VORB to receive urine sample
--- NOTE | 2023-12-15 16:10 | PCCCNOTE ---
Addendum entered by Maday Guajardo RN 12/19/23 15:10: Call received today from rep Tamia with [facility] to let us know they would not be able to take pt back d/t his behaviors and they would recommend [facility] locked unit for him in the future. Addendum entered by Maday Guajardo RN 12/15/23 19:07: Call received from ER requesting I talk with spouse again as they now feel pt did not receive complete workup and would like to talk to me. I spoke withi spouse and she stated they told me to call and sched an apt to see Dr Wright in the afternoon tomorrow and I told her I couldn't get him there tomorrow but that I have the information needed to arrange transportation to his apts. She stated she did want to take him home and she didn't understand why there is a problem. She plans to take him home and will require an ambulance to transport him. Addendum entered by Maday Guajardo RN 12/15/23 18:24: Call placed to Tamia with [facility] and message left requesting return call. No call received. Spouse would like to take pt home. ER provider in agreement. Call placed to [facility] to inform them that pt will be discharged. Spouse will consider placing pt in respite on Tuesday if needed. She has information on private duty, transportation and DME to help get arrangements set up for home. Son is currently here with her but will be able to assist minimally as he is ill himself. Addendum entered by Maday Guajardo RN 12/15/23 16:30: PAS[facility] done Original Note: Met with pt and spouse and spoke to provider. Pt was recently released from [facility] where he had been for a few months. Spouse states she paid x 3 weeks private pay after insurance ran out. He is current with [facility]. Spouse states he was doing well with a walker a home for a few days but Tuesday he couldn't walk. PT & OT came out and they were unable to ambulate him also. He stayed in the chair for a few days and spouse changed his depends. PCP recommended she bring him back to hospital for evaluation. SHe would like to take him back home but is thinking she needs a few days to get her home set up with a hospital bed and obtain private duty to help are for him there. Call placed to Tamia with [facility]. She thought they would be able to accept him back for respite while spouse make arrangements at home. Face sheet faxed. ER note not available yet. Will fax when avail. Spouse given private duty and transportation information.
[2023-12-15 16:27] LABS: Appearance Urine Cloudy (Clear); Bacteria Urine None Seen /hpf; Bilirubin Urine Negative (Negative); Blood Urine 3+ (Negative); Color Urine Yellow (Yellow); Glucose Urine UA Negative (Negative); Ketones Urine Trace mg/dL (Negative); Leukocyte Esterase Ur 1+ LEU/UL (Negative); Nitrate Urine Negative (Negative); Non Pathogenic Casts 0-2; Protein Urine 1+ mg/dL (Negative); RBC Urine >100 /hpf (0-2); Specific Grav Ur 1.022 (1.001-1.035); Squamous Epithelial Cell Urine None Seen /hpf (Few); pH Urine 5.5 (5.0-9.0)
[2023-12-15 16:53] LABS: Add Urine Microscopic? YES
--- NOTE | 2023-12-15 17:20 | ED.GENADULT ---
HPI - General Adult General Chief complaint: Weakness Stated complaint: WEAKNESS Time Seen by Provider: 12/15/23 13:34 Source: family Mode of arrival: EMS Limitations: dementia History of Present Illness HPI narrative: 88-year-old with a history of dementia, brought in from home with the complaints of mild weakness and inability to walk. mentions that he was transferred from [facility] few weeks ago to [facility] for rehab , pt did well after few days stay was discharged home and is having home PT however for past few days he is unable to walk , PT was at home this morning was advised to go to the ER. Pt is presently has no complaints. Onset (ago): day(s) (2) Related Data Home Medications Medication Instructions Recorded Confirmed PreserVision AREDS-2 1 cap PO DAILY 07/26/23 08/17/23 aspirin 81 mg tablet,delayed 81 mg PO DAILY 07/26/23 08/17/23 release atorvastatin 20 mg tablet 20 mg PO DAILY 07/26/23 08/17/23 brimonidine 0.2 %-timolol 0.5 % 1 drp ophthalmic (eye) HS 07/26/23 08/17/23 eye drops buspirone 5 mg tablet 2.5 mg PO BID 07/26/23 08/17/23 chlorthalidone 25 mg tablet 25 mg PO DAILY 07/26/23 08/17/23 lycopene 10 mg capsule 10 mg PO DAILY 07/26/23 08/17/23 metoprolol succinate 50 mg 50 mg PO DAILY 07/26/23 08/17/23 tablet,extended release 24 hr potassium chloride 20 mEq 20 meq PO DAILY 07/26/23 08/17/23 tablet,extended release(part/cryst) (Klor-Con M) quetiapine 25 mg tablet 25 mg PO HS PRN Sleep 07/26/23 08/17/23 tamsulosin 0.4 mg capsule 0.4 mg PO DAILY 07/26/23 08/17/23 Allergies Allergy/AdvReac Type Severity Reaction Status Date / Time No Known Allergies Allergy Verified 08/26/23 14:26 Review of Systems Review of Systems: ROS unobtainable: Yes unobtainable due to mental status PMFSH Past Medical History Medical History Age-related macular degeneration, wet, left eye BPH (benign prostatic hyperplasia) Dementia Encephalopathy acute Essential hypertension Glaucoma Hyperlipidemia MRSA (methicillin resistant Staphylococcus aureus) colonization Surgical History Surgical History Status post cataract extraction of both eyes with insertion of intraocular lens Family History Family History Sibling Acute myocardial infarction Cerebrovascular accident Chronic obstructive pulmonary disease Mother Hypertension Acute myocardial infarction Social History Social History Social History: The patient lives at home with his until recent hospitalization at [facility] early July 2023. Code status: Full code Surrogate decision maker: Smoking status: Never smoker Alcohol intake: never Substance use: never Do You Feel Safe in your Home?: Yes Lack of Transportation: No Lack of Food: Never True Current Housing: I Have Housing Concerned About Future Housing: No Difficulty Paying Gas/Electric Bills: No Difficulty Paying for Meds: No Currently Unemployed: No Education: Bachelor's Degree Difficulty w/ Childcare or Family Care: No Spiritual care concerns: No Exam Narrative: GENERAL: Well-appearing, well-nourished, and in no acute distress. HEAD: Normocephalic, atraumatic. EYES: PERRLA and EOMI. ENT: Nares clear, no rhinorrhea or epistaxis. Mucous membranes moist. NECK: Supple. CHEST: Clear to auscultation. No respiratory distress. HEART: Regular rate and rhythm. No murmur heard. Normal peripheral pulses. ABDOMEN: Soft, nontender, nondistended, normal active bowel sounds. EXTREMITIES: Normal range of motion. No edema. SKIN: Warm, dry, no rash. NEURO: No focal deficits. Alert and oriented x2. PSYCH: Normal mood and affect. Course Course Emergency Course: Notified patient about her lab work
== END 2023-12-15 19:00 | disposition home or self-care (01) ==
PROVIDERS: Emergency Provider Family Medicine; PCP Internal Medicine
DX: R53.1 Weakness (principal); F03.90 Unspecified dementia, unspecified severity, without behavioral disturbance, psychotic disturbance, mood disturbance, and anxiety; I10 Essential (primary) hypertension; E78.5 Hyperlipidemia, unspecified; H40.9 Unspecified glaucoma; N40.0 Benign prostatic hyperplasia without lower urinary tract symptoms; Z86.14 Personal history of Methicillin resistant Staphylococcus aureus infection; Z96.1 Presence of intraocular lens; Z98.42 Cataract extraction status, left eye; Z98.41 Cataract extraction status, right eye; Z79.82 Long term (current) use of aspirin; Z79.899 Other long term (current) drug therapy; R00.1 Bradycardia, unspecified; R94.31 Abnormal electrocardiogram [ECG] [EKG]
CPT/HCPCS: 36415; 71046; 80053; 81001; 85025; 87086; 93005; 99283

== ENCOUNTER 2023-12-22 13:23 | Observation (INO) | payer MEDICARE, SELFPAY ==
[2023-12-22] VITALS (20 sets, daily range): BP systolic 142–178; BP diastolic 67–104; PULSE 53–66; RESP 7–21; TEMP 36.6; O2SAT 93–100; BMI 27.5
--- NOTE | ~2023-12-22 | XR_ITS ---
XR chest 2V Ordering provider: Zora Salter MD History: 88 years Male with . AMS, weakness . Comparison: None. FINDINGS: MEDIASTINUM: The cardiac silhouette is not enlarged. Congestive ivis. LUNGS: No effusions or pneumothorax. Minimal opacification in the left lung base. Minimal interstitial changes bilaterally. OTHER: No free air under the diaphragm. Degenerative spine. IMPRESSION: Minimal opacification in the left lung base which may indicate atelectasis versus pneumonia. Follow-u p advised. Underlying pulmonary edema is not excluded. Reviewed, dictated and finalized at location A. IMPRESSION: Minimal opacification in the left lung base which may indicate atelectasis vers us pneumonia. Follow-up advised. Underlying pulmonary edema is not excluded.
--- NOTE | ~2023-12-22 | CT_ITS ---
CT brain wo con Ordering provider: Alex Kramer MD History: 88 years Male with . CONFUSION . Comparison: July 25, 2023 Technique: CT of the head without contrast. Radiation reduction technique utilized.DLP is 1362 mGy. FINDINGS: BRAIN PARENCHYMA AND CSF SPACES: Mild leukoaraiosis and diffuse cortical atrophy. Mild atheromatous d isease. Mild ventricular dilatation. No midline shift, mass effect or hemorrhage. The brain parenchy ma and CSF spaces are otherwise normal. VISUALIZED PARANASAL SINUSES: Right maxillary sinus soft tissue density with extension to the nasal c avity. Inverted papilloma should be considered. Clinical evaluation advised. Right nasal septal devia tion is seen. No change from previous examination. MASTOIDS: Well aerated. BONES: The bones appear intact. SOFT TISSUES: Visualized nasopharynx is normal. Superficial soft tissues are normal. IMPRESSION: No acute intracranial findings. Right maxillary sinus disease unchanged from previous examination. Extension into the nasal cavity is seen. Inverted papilloma should be considered. Clinical evaluation is advised. Reviewed, dictated and finalized at location A. IMPRESSION: No acute intracranial findings. Right maxillary sinus disease unchanged from previous examination. Extension in to the nasal cavity is seen. Inverted papilloma should be considered. Clinical evaluation is advised.
--- NOTE | 2023-12-22 13:37 | ECG_ITS ---
Test Date: 2023-12-22 13:39:16 Measurements Intervals [place] Rate: 59 P: 58 [place]: 200 QRS: -37 QRSD: 84 T: -9 QT: 427 QTc: 425 Interpretive Statements SINUS BRADYCARDIA PATTERN CONSISTENT WITH PULMONARY DISEASE INFERIOR MYOCARDIAL INFARCTION , PROBABLY OLD [40+ ms Q WAVE AND/OR ST/T ABNORMALITY IN II/aVF] NON-DIAGNOSTIC T WAVES ABNORMAL ECG Compared to ECG 12/15/2023 12:21:51 Myocardial infarct finding now present Left-axis deviation no longer present Electronically Signed On 12-22-2023 16:24:20 CDT by Aleksey Marina M.D.
[2023-12-22 14:02] LABS: Basophils Percent Auto 0.3 % (0.2-1.2); Eosinophils Absolute Auto 0.5 K/mm3 (0-0.3); Eosinophils Percent Auto 4.9 % (0-4.4); Hematocrit 35.3 % (42.0-52.0); Hemoglobin 11.4 g/dL (14.0-18.0); Immature Granulocyte Absolute 0.03 K/mm3 (0.00-0.031); Immature Granulocyte Percent A 0.3 % (0-0.5); Lymphocytes Absolute Auto 2.37 K/mm3 (0.9-3.2); Mean Corpuscular HGB Conc 32.3 g/dl (32-36); Mean Corpuscular Hemoglobin 29.2 pg (26-34); Mean Corpuscular Volume 90.3 fl (80-100); Mean Platelet Volume 10.2 fl (7.4-10.4); Monocytes Absolute Auto 0.8 K/mm3 (0.1-0.6); Monocytes Percent Auto 8.9 % (2.6-8.5); Neutrophils Absolute Auto 5.4 K/mm3 (1.3-6.7); Neutrophils Percent Auto 59.6 % (45.5-73.1); Platelet Count Result 241 k/mm3 (150-375); Red Blood Count 3.91 M/mm3 (4.6-6.20); Red Cell Distribution Width 13.1 % (11.5-14.5); White Blood Count 9.1 K/mm3 (4.5-10.0)
[2023-12-22 14:08] LABS: Appearance Urine Clear (Clear); Bacteria Urine None Seen /hpf; Bilirubin Urine Negative (Negative); Blood Urine Trace (Negative); Color Urine Yellow (Yellow); Glucose Urine UA Negative (Negative); Ketones Urine Negative (Negative); Leukocyte Esterase Ur Negative LEU/UL (Negative); Nitrate Urine Negative (Negative); Non Pathogenic Casts 0-2; Protein Urine Negative (Negative); RBC Urine 0-2 /hpf (0-2); Specific Grav Ur 1.013 (1.001-1.035); Squamous Epithelial Cell Urine None Seen /hpf (Few); WBC Urine 0-5 /hpf (0-3); pH Urine 6.5 (5.0-9.0)
[2023-12-22 14:10] LABS: Alanine Aminotransferase 34 U/L (6-50); Albumin Level 3.7 g/dL (3.5-5.1); Alkaline Phosphatase 56 U/L (38-126); Anion Gap 5 mmol/L (4-12); Aspartate Amino Transferase 30 U/L (17-59); Bilirubin,Total 0.5 mg/dL (0.2-1.3); Blood Urea Nitrogen 28 mg/dL (9-20); Calcium 9.5 mg/dL (8.4-10.2); Carbon Dioxide 30 mmol/L (22-30); Chloride 104 mmol/L (98-107); Estimated CRCL calculation 35 ml/min; Estimated Glomerular Filt Rate 57; Glucose 93 mg/dL (65-110); Potassium 3.5 mmol/L (3.4-5.0); Sodium 139 mmol/L (137-145)
[2023-12-22 14:11] LABS: Add Urine Microscopic? YES
--- NOTE | 2023-12-22 15:09 | ED.WEAKNESS ---
HPI - Weakness General Chief complaint: Weakness Stated complaint: weakness Time Seen by Provider: 12/22/23 15:08 Source: family and EMS Mode of arrival: EMS History of Present Illness HPI Narrative: 88 YEARS OLD WHITE MALE, HISTORY OF DEMENTIA, CAME TO THE EMERGENCY ROOM FROM HOME WITH HIS ECHOES UNABLE TO TAKE CARE OF HIM, GENERAL WEAKNESS, UNABLE TO MANAGE TO STAND UP AND WALK BEFORE. PATIENT WAS DISCHARGED FROM [facility] ON DECEMBER 08, 3 DAYS LATER PATIENT WAS NOT ABLE TO GET UP AND WALK USUAL, GETTING WEAKER, UNABLE TO TAKE CARE OF HIM AND WOULD LIKE HIM TO GO BACK TO [facility]. SHE DENIES THAT THE PATIENT HAVE ANY FEVER, CHILLS, NAUSEA OR VOMITING. PATIENT COMPLAINING OF BUTTOCK PAIN BECAUSE OF THE LONG SITTING AND LYING DOWN FLAT, SHE NOTICE DOES THE PATIENT HAVE SKIN IRRITATION AT THAT AREA WHICH SHE DOES NOT ABLE TO TAKE CARE OF IN Related Data Home Medications Medication Instructions Recorded Confirmed PreserVision AREDS-2 1 cap PO DAILY 07/26/23 08/17/23 aspirin 81 mg tablet,delayed 81 mg PO DAILY 07/26/23 08/17/23 release atorvastatin 20 mg tablet 20 mg PO DAILY 07/26/23 08/17/23 brimonidine 0.2 %-timolol 0.5 % 1 drp ophthalmic (eye) HS 07/26/23 08/17/23 eye drops buspirone 5 mg tablet 2.5 mg PO BID 07/26/23 08/17/23 chlorthalidone 25 mg tablet 25 mg PO DAILY 07/26/23 08/17/23 lycopene 10 mg capsule 10 mg PO DAILY 07/26/23 08/17/23 metoprolol succinate 50 mg 50 mg PO DAILY 07/26/23 08/17/23 tablet,extended release 24 hr potassium chloride 20 mEq 20 meq PO DAILY 07/26/23 08/17/23 tablet,extended release(part/cryst) (Klor-Con M) quetiapine 25 mg tablet 25 mg PO HS PRN Sleep 07/26/23 08/17/23 tamsulosin 0.4 mg capsule 0.4 mg PO DAILY 07/26/23 08/17/23 Allergies Allergy/AdvReac Type Severity Reaction Status Date / Time No Known Allergies Allergy Verified 12/22/23 13:50 Review of Systems Review of Systems: ROS unobtainable: Yes unobtainable due to medical condition and unobtainable due to mental status PMFSH Past Medical History Medical History Age-related macular degeneration, wet, left eye BPH (benign prostatic hyperplasia) Dementia Encephalopathy acute Essential hypertension Glaucoma Hyperlipidemia MRSA (methicillin resistant Staphylococcus aureus) colonization Surgical History Surgical History Status post cataract extraction of both eyes with insertion of intraocular lens Family History Family History Sibling Acute myocardial infarction Cerebrovascular accident Chronic obstructive pulmonary disease Mother Hypertension Acute myocardial infarction Social History Social History Social History: The patient lives at home with his until recent hospitalization at [facility] early July 2023. Code status: Full code Surrogate decision maker: Smoking status: Never smoker Alcohol intake: never Substance use: never Do You Feel Safe in your Home?: Yes Lack of Transportation: No Lack of Food: Never True Current Housing: I Have Housing Concerned About Future Housing: No Difficulty Paying Gas/Electric Bills: No Difficulty Paying for Meds: No Currently Unemployed: No Education: Bachelor's Degree Difficulty w/ Childcare or Family Care: No Spiritual care concerns: No Exam Narrative: GENERAL APPEARANCE: WELL-DEVELOPED, WELL-NOURISHED SKIN: NORMAL COLOR, PRESSURE ULCERS AT THE SACRAL AREA AND BUTTOCKS AT THAT AREA BILATERALLY HEAD: NORMOCEPHALIC, NONTRAUMATIC EYES: CLEAR CONJUNCTIVA ENT: OROPHARYNX NORMAL, EARS NORMAL, NOSE NORMAL NECK: SUPPLE, NONTENDER CHEST AND RESPIRATORY: AIRWAY PATENT, NO RESPIRATORY DISTRESS, NO ACCESSORY MUSCLE USE HEART: REGULAR RATE/RHYTHM ABDOMEN: SOFT, NONTENDER, NO ORGANOMEGA
--- NOTE | 2023-12-22 16:18 | PC.NURSE ---
Agitated and attempting to climb off stretcher. ERP aware.
--- NOTE | 2023-12-22 19:32 | PC.NURSE ---
this rn assumed care of patient. this rn took patient report from ALFRED Rajput.
--- NOTE | 2023-12-22 19:47 | PC.NURSE ---
upon shift change, this rn attempted to get a new set of vitals. pt started to raise voice at this rn. pt then started to hit this rn. pt states, sit on me baby girl . this rn attempted to reorient patient. operating theatre technician came into room to assist this rn. pt grabbed food tried and tried to hit this rn again. this rn reoriented patient again. biomedical engineering aide was able to get another set of vitals on patient while this rn attempted to reorient patient.
--- NOTE | 2023-12-22 20:55 | ADMGEN ---
This patient, Anton Fortune, was admitted to Medical Room 343-01. Patient/family oriented to hospital policies and general routines including ID bracelet, bed and alarms, visiting hours, pain management, procedures, bathroom and other care routines, personal items, smoking policy, room service/diet, and visiting hours. Information on how to activate the Rapid Response Team has been discussed. Patient/Family are encouraged to report perceived risks to care and to ask questions if they do not understand what they are told or what they should do.
[2023-12-23 04:50] VITALS: BP 158/66; PULSE 66; RESP 16; TEMP 36.6; O2SAT 99
--- NOTE | 2023-12-23 09:23 | PM.IMHP ---
H&P: HPI History of Present Illness Date/Time: 12/23/23 09:23 Chief Complaint: weakness Narrative: 88 y.o male admitted from er fro weakness. pt has h/o dementia, hld, htn, bph, glaucoma He was recently in [facility] and discharged on December 08- 3 days later was not able to get up and walk as usual.Some increased confusion. cannot take car eof him at home and would like for him to go back to [facility]. pt denies any chest pain, n/v/d, sob. Reports some redness to his buttocks. ED work up: WBC 9.1, H/H 11.4/35.3, Ns 139, K 3.5, Cr 1.20, GFR 57, UA is collected- unremarkable. Head CT done- mo acute findings. Home meds reviewed and restarted as appropriate. PT is DNR Unable to do a comprehensive h/p as pt is confused. reports that pt had Peg tube while back but it was discontinued- as it was some concerned with him eating and pocketing food. She reports he had been eating fine . Pt's is very concerned that she is not able to take care of him by herself any longer. Review of Systems Review of Systems: ROS unobtainable: Yes unobtainable due to mental status Constitutional: Constitutional: Denies chills and Denies fatigue Cardiovascular: Cardiovascular: Denies chest pain Respiratory: Respiratory: Denies chest congestion and Denies cough Gastrointestinal: Gastrointestinal: Denies abdominal pain Musculoskeletal: Musculoskeletal: Reports myalgias Comments: increase weakness Neurologic: Reports confusion Comments: dementia Psychiatric: Psychiatric: Reports behavioral changes [facility] Past Medical History Medical History Age-related macular degeneration, wet, left eye BPH (benign prostatic hyperplasia) Dementia Encephalopathy acute Essential hypertension Glaucoma Hyperlipidemia MRSA (methicillin resistant Staphylococcus aureus) colonization Surgical History Surgical History Status post cataract extraction of both eyes with insertion of intraocular lens Family History Family History Sibling Acute myocardial infarction Cerebrovascular accident Chronic obstructive pulmonary disease Mother Hypertension Acute myocardial infarction Social History Social History (Reviewed 12/23/23 @ 14:08 by BERTIN Christopher Social History: The patient lives at home with his until recent hospitalization at [facility] early July 2023. Code status: pt is DNR Surrogate decision maker: Smoking status: Never smoker Alcohol intake: never Substance use: never Do You Feel Safe in your Home?: Yes Lack of Transportation: No Lack of Food: Never True Current Housing: I Have Housing Concerned About Future Housing: No Difficulty Paying Gas/Electric Bills: No Difficulty Paying for Meds: No Currently Unemployed: No Education: Bachelor's Degree Difficulty w/ Childcare or Family Care: No Spiritual care concerns: No Meds Home Medications and Allergies Home Medications Medication Instructions Recorded Confirmed Type PreserVision AREDS-2 1 cap PO DAILY 07/26/23 12/22/23 History aspirin 81 mg tablet,delayed 81 mg PO DAILY 07/26/23 12/22/23 History release brimonidine 0.2 %-timolol 0.5 % 1 drp ophthalmic (eye) HS 07/26/23 12/22/23 History eye drops buspirone 5 mg tablet 10 mg PO TID 07/26/23 12/22/23 History potassium chloride 20 mEq 20 meq PO DAILY 07/26/23 12/22/23 History tablet,extended release(part/cryst) (Klor-Con M) tamsulosin 0.4 mg capsule 0.4 mg PO DAILY 07/26/23 12/22/23 History divalproex 125 mg tablet,delayed 125 mg PO BID 12/22/23 12/22/23 History release famotidine 20 mg tablet 20 mg PO BID 12/22/23 12/22/23 History furosemide 40 mg tablet 40 mg PO DAILY 12/22/23 12/22/23 History metoprolol tartrate 50 mg tablet 50 mg PO BID 12/22/23 12/22/23 History
[2023-12-23] MEDS: busPIRone HCL 5 MG TABLET 10 MG PO ×3 (12:26→21:58)
[2023-12-23] MEDS: FAMOTIDINE 20 MG TABLET PO ×2 (12:26→21:58)
[2023-12-23] MEDS: DIVALPROEX SODIUM DR 125 MG TABEC PO ×2 (12:26→17:11)
[2023-12-23] MEDS: POTASSIUM CHLORIDE 20 MEQ ER TABLET PO (12:26)
[2023-12-23] MEDS: FUROSEMIDE 40 MG TABLET PO (12:26)
[2023-12-23] MEDS: ASPIRIN 81 MG ENTERIC TABLET PO (12:27)
[2023-12-23 12:29] VITALS: PULSE 61
[2023-12-23] MEDS: METOPROLOL TARTRATE 50 MG TAB PO ×2 (12:29→21:58)
[2023-12-23] MEDS: TAMSULOSIN HCL 0.4 MG CAPSULE PO (12:37)
[2023-12-23 14:22] VITALS: O2SAT 99
[2023-12-23 17:48] VITALS: BP 127/59; PULSE 66; RESP 19; TEMP 36.6; O2SAT 98
[2023-12-23 21:58] VITALS: PULSE 72
[2023-12-23] MEDS: traZODone HCL 50 MG TABLET PO (21:58)
[2023-12-23 22:00] VITALS: BP 124/53; PULSE 71; RESP 20; TEMP 36.8; O2SAT 100
[2023-12-23] MEDS: TIMOLOL MALEATE 0.5% OP SOLN 5 ML BOTTLE 1 DROP EACH EYE (22:03)
[2023-12-23] MEDS: BRIMONIDINE TARTRATE 0.2% OP SOLN 5 ML BTL 1 DROP EACH EYE (22:03)
[2023-12-24 06:00] VITALS: BP 118/65; PULSE 56; RESP 16; TEMP 36.6; O2SAT 94
--- NOTE | 2023-12-24 08:21 | PM.DS ---
DS: Admitting Diagnosis Discharge Date 12/23 Admitting Diagnosis increased weakness, dementia DS: Discharge Diagnosis Discharge Diagnosis (1) Weakness: Code(s): R53.1 - Weakness Status: Acute Assessment and Plan: -will order pt/ot -fall risk - up with assistance (2) Essential hypertension: Code(s): I10 - Essential (primary) hypertension Status: Acute Assessment and Plan: -will continue home metoprolol for now- hold if HR below 60 (3) Vascular dementia: Qualifiers: Dementia severity: severe Dementia behavioral or psychological symptom: unspecified whether behavioral, psychotic, or mood disturbance or anxiety Qualified Code(s): F01.C0 - Vascular dementia, severe, without behavioral disturbance, psychotic disturbance, mood disturbance, and anxiety Code(s): F01.50 - Vascular dementia, unspecified severity, without behavioral disturbance, psychotic disturbance, mood disturbance, and anxiety Status: Acute Assessment and Plan: ct head negative - will consult neurology as other acute causes ruled out so far (4) Altered mental status: Qualifiers: Altered mental status type: unspecified Qualified Code(s): R41.82 - Altered mental status, unspecified Code(s): R41.82 - Altered mental status, unspecified Status: Acute Assessment and Plan: differential dx include: dehydration vs acute infection- UTI vs pneumonia vs CVA vs electrolyte imbalance vs delirium ED work up to r/u any acute process: WBC 9.1, H/H 11.4/35.3, Ns 139, K 3.5, Cr 1.20, GFR 57, UA is collected- unremarkable. Head CT done- mo acute findings. Plan Final dx: vascular dementia, physical deconditioning Pt is admitted with increased weakness and some confusion. So far nothing acute was found that would contribute to his decline in condition- so could be part of normal aging process complicated by dementia. Will work with PT/OT and care coordination for placement while continuing to monitor. DS: Summary Hospital Course Hospital Course: 88 y.o male admitted from er fro weakness. pt has h/o dementia, hld, htn, bph, glaucoma He was recently in prison and discharged on December 08- 3 days later was not able to get up and walk as usual.Some increased confusion. cannot take care of him at home and would like for him to go back to prison. pt denies any chest pain, n/v/d, sob. Reports some redness to his buttocks. ED work up: WBC 9.1, H/H 11.4/35.3, Ns 139, K 3.5, Cr 1.20, GFR 57, UA is collected- unremarkable. Head CT done- mo acute findings. Home meds reviewed and restarted as appropriate. PT is DNR Unable to do a comprehensive h/p as pt is confused. reports that pt had Peg tube while back but it was discontinued- as it was some concerned with him eating and pocketing food. She reports he had been eating fine . Pt's is very concerned that she is not able to take care of him by herself any longer. Status at Discharge Functional status at discharge: uses cane/walker Overall status at discharge: patient is back to baseline Time Spent with Patient Time attestation: Total time spent providing and/or coordinating discharge services: Time spent: Less than 30 minutes Exam Const: General: confusion Orientation/consciousness: confusion Other: baseline for him Resp: Effort & Inspection: normal respiratory effort Cardio: Rate: regular rate Rhythm: regular rhythm Skin: General skin exam: normal color Other: redness to buttocks- no open areas Neuro: General: confusion Extrem: General: normal to inspection DS: Data Data Completed and Pending Completed studies during hospitalization: head ct, chest xray Pending studies at discharge: none Discharge Plan Discharge Attending physician on discharge: Noah De Leon Consulting providers: Natalie Villegas Discharging Clinician: Uyen De Leon Patient Disposition: SNF Act
[2023-12-24] MEDS: busPIRone HCL 5 MG TABLET 10 MG PO (09:07)
[2023-12-24] MEDS: TAMSULOSIN HCL 0.4 MG CAPSULE PO (09:07)
[2023-12-24] MEDS: FUROSEMIDE 40 MG TABLET PO (09:07)
[2023-12-24 09:08] VITALS: PULSE 77
[2023-12-24] MEDS: POTASSIUM CHLORIDE 20 MEQ ER TABLET PO (09:08)
[2023-12-24] MEDS: ASPIRIN 81 MG ENTERIC TABLET PO (09:08)
[2023-12-24] MEDS: METOPROLOL TARTRATE 50 MG TAB PO (09:08)
[2023-12-24] MEDS: DIVALPROEX SODIUM DR 125 MG TABEC PO (09:08)
[2023-12-24] MEDS: FAMOTIDINE 20 MG TABLET PO (09:08)
== END 2023-12-24 11:51 ==
LOC: ANHED 16:49 → ANH3MED 12-24 08:25
PROVIDERS: Student in an Organized Health Care Education/Training Program; Admitting Provider Hospitalist; Emergency Provider Emergency Medicine; PCP Internal Medicine; Visit Provider Internal Medicine
DX: R53.1 Weakness (principal); F01.C0 Vascular dementia, severe, without behavioral disturbance, psychotic disturbance, mood disturbance, and anxiety; H35.3220 Exudative age-related macular degeneration, left eye, stage unspecified; I10 Essential (primary) hypertension; E78.5 Hyperlipidemia, unspecified; H40.9 Unspecified glaucoma; Z22.322 Carrier or suspected carrier of Methicillin resistant Staphylococcus aureus; Z79.82 Long term (current) use of aspirin
CPT/HCPCS: 36415; 70450; 71046; 72125; 73502; 80053; 81001; 85025; 93005; 99285; A9270; G0378

== ENCOUNTER 2023-12-24 19:14 | Emergency (ER) | payer MEDICARE, SELFPAY ==
--- NOTE | ~2023-12-24 | XR_ITS ---
EXAMINATION: XR hip RT 2V w AP pelvis DATE: 12/24/2023 20:47 INDICATION: Fall. TECHNIQUE: An anteroposterior view of the the pelvis and 2 views of right hip were obtained. COMPARISON: None. FINDINGS: Bone alignment is normal. No fracture. There is severe lumbar spondylosis. There is mild os teoarthritis of the hips. IMPRESSION: 1. No fracture. 2. Mild osteoarthritis of the hips. Reviewed, dictated and finalized at location E.
--- NOTE | ~2023-12-24 | CT_ITS ---
EXAMINATION: CT cervical spine wo con DATE: 12/24/2023 20:58 INDICATION: Neck injury. Fall. TECHNIQUE: Computed tomography (CT) of the cervical spine was performed without intravenous contrast. Automated exposure control and iterative reconstruction technique were employed. The dose-length pro duct was 427.70 mGy-cm. COMPARISON: None FINDINGS: There is 3 mm retrolisthesis of C3 on C4 and 2 mm retrolisthesis of C4 on C5 and C5 on C6. There is mild chronic anterior wedging of C7 and T1 vertebral bodies. There is severely decreased dis c height from C2-C3 through T2-T3. There are interbody fusion at C3-C4. The following disc levels are specifically discussed: C2-C3: There is severe bilateral uncovertebral joint osteoarthritis. There is severe right and mild l eft facet joint osteoarthritis. There is mild bilateral neural foraminal stenosis. There is mild cent ral canal stenosis. C3-C4: There is severe bilateral uncovertebral joint osteoarthritis. There is moderate right and mild left facet joint osteoarthritis. There is moderate bilateral neural foraminal stenosis. There is mod erate central canal stenosis. C4-C5: There is severe bilateral uncovertebral joint osteoarthritis. There is mild bilateral facet ruben int osteoarthritis. There is mild bilateral neural foraminal stenosis. There is mild central canal st enosis. C5-C6: There is severe bilateral uncovertebral joint osteoarthritis. There is severe bilateral facet joint osteoarthritis. There is moderate bilateral neural foraminal stenosis. There is moderate centra l canal stenosis. C6-C7: There is severe bilateral uncovertebral joint osteoarthritis. There is moderate and severe lef t facet joint osteoarthritis. There is mild bilateral neural foraminal stenosis. There is mild centra l canal stenosis. C7-T1: There is severe bilateral uncovertebral joint osteoarthritis. There is severe bilateral facet joint osteoarthritis. There is mild bilateral neural foraminal stenosis. There is mild central canal stenosis. IMPRESSION: 1. No fracture. 2. Severe cervical spondylosis. Reviewed, dictated and finalized at location E.
--- NOTE | ~2023-12-24 | CT_ITS ---
EXAMINATION: CT brain wo con DATE: 12/24/2023 20:57 INDICATION: Fall. TECHNIQUE: Computed tomography (CT) of the head was performed without intravenous contrast. The mA wa s adjusted according to patient size. Iterative reconstruction technique was employed. The dose-lengt h product was 681.00 mGy-cm. COMPARISON: Head CT 12/22/2023 FINDINGS: There are scattered areas of low attenuation in the cerebral white matter. There is diffuse brain volume loss. There is no intracranial hemorrhage, acute infarction, or abnormal intracranial m ass lesion. The ventricles are normal in size. There is mucosal thickening in the paranasal sinuses i ncluding near complete thickening opacification of right maxillary sinus. There is thickening and scl erosis of the edmondson of right maxillary sinus, consistent with chronic sinusitis. The mastoid air cell s are normal. IMPRESSION: 1. Moderate nonspecific cerebral white matter disease, which likely represents chronic small vessel i schemic disease. 2. Chronic sinusitis. Reviewed, dictated and finalized at location E. IMPRESSION: 1. Moderate nonspecific cerebral white matter disease, which likely represents chronic small vessel ischemic disease. 2. Chronic sinusitis.
[2023-12-24 19:15] VITALS: BP 135/75; PULSE 67; RESP 15; TEMP 36.8; O2SAT 100
--- NOTE | 2023-12-24 20:15 | ED.FALL ---
HPI - Fall General Chief Complaint: Fall Stated Complaint: fall Time Seen by Provider: 12/24/23 20:03 Source: patient Mode of arrival: EMS Limitations: dementia History of Present Illness HPI Narrative: This is an 88-year-old male who presents to the ED via EMS for chief complaint of a fall tonight. He is coming from prison. is here who got the report from prison nurses. She states that the patient fell off of the bed around 18 in. He was just transferred there from the hospital today. he has dementia and is alert oriented at his baseline. states that patient is acting at his baseline. Related Data Home Medications Medication Instructions Recorded Confirmed PreserVision AREDS-2 1 cap PO DAILY 07/26/23 12/22/23 aspirin 81 mg tablet,delayed 81 mg PO DAILY 07/26/23 12/22/23 release brimonidine 0.2 %-timolol 0.5 % 1 drp ophthalmic (eye) HS 07/26/23 12/22/23 eye drops buspirone 5 mg tablet 10 mg PO TID 07/26/23 12/22/23 potassium chloride 20 mEq 20 meq PO DAILY 07/26/23 12/22/23 tablet,extended release(part/cryst) (Klor-Con M) tamsulosin 0.4 mg capsule 0.4 mg PO DAILY 07/26/23 12/22/23 divalproex 125 mg tablet,delayed 125 mg PO BID 12/22/23 12/22/23 release famotidine 20 mg tablet 20 mg PO BID 12/22/23 12/22/23 furosemide 40 mg tablet 40 mg PO DAILY 12/22/23 12/22/23 metoprolol tartrate 50 mg tablet 50 mg PO BID 12/22/23 12/22/23 trazodone 50 mg tablet 50 mg PO HS 12/22/23 12/22/23 Allergies Allergy/AdvReac Type Severity Reaction Status Date / Time No Known Allergies Allergy Verified 12/22/23 13:50 Review of Systems Review of Systems: ROS unobtainable: Yes unobtainable due to mental status PMFSH Past Medical History Medical History Age-related macular degeneration, wet, left eye BPH (benign prostatic hyperplasia) Dementia Encephalopathy acute Essential hypertension Glaucoma Hyperlipidemia MRSA (methicillin resistant Staphylococcus aureus) colonization Surgical History Surgical History Status post cataract extraction of both eyes with insertion of intraocular lens Family History Family History Sibling Acute myocardial infarction Cerebrovascular accident Chronic obstructive pulmonary disease Mother Hypertension Acute myocardial infarction Social History Social History Social History: The patient lives at home with his until recent hospitalization at [facility] early July 2023. Code status: pt is DNR Surrogate decision maker: Smoking status: Never smoker Alcohol intake: never Substance use: never Do You Feel Safe in your Home?: Yes Lack of Transportation: No Lack of Food: Never True Current Housing: I Have Housing Concerned About Future Housing: No Difficulty Paying Gas/Electric Bills: No Difficulty Paying for Meds: No Currently Unemployed: No Education: Bachelor's Degree Difficulty w/ Childcare or Family Care: No Spiritual care concerns: No Exam Narrative: GENERAL: Well-appearing, well-nourished, and in no acute distress. HEAD: Normocephalic, atraumatic. EYES: PERRLA and EOMI. ENT: Nares clear, no rhinorrhea or epistaxis. Mucous membranes moist. Oropharynx without tonsillar hypertrophy exudate or other lesions. NECK: Supple. No adenopathy or masses. CHEST: No respiratory distress. Clear to auscultation. No wheezes rales or rhonchi HEART: Regular rate and rhythm. No murmur heard. Normal peripheral pulses. ABDOMEN: Soft, nontender, nondistended, normal active bowel sounds. MSK: Mild pain with rotation and range of motion of the right hip. Otherwise MSK exam is normal. Normal range of motion. No edema. SKIN: Warm, dry, no rash. NEURO: Alert and oriented x1, at base
[2023-12-24 21:00] VITALS: PULSE 78; RESP 18; TEMP 36.8; O2SAT 98
[2023-12-24] MEDS: ACETAMINOPHEN 500 MG TABLET 1000 MG PO (21:30)
--- NOTE | 2023-12-24 23:00 | PC.NURSE ---
Patient began holding a fist and threatening to hit his , while trying to get the patient to lay back in the bed. This RN and Kai tech moved patient back into the bed, patient began swinging at the tech and trying to pinch, grab, and hit the RN
[2023-12-24 23:14] VITALS: BP 124/70; PULSE 87; RESP 18; O2SAT 98
== END 2023-12-24 23:36 ==
PROVIDERS: Emergency Provider Physician Assistant; PCP Internal Medicine
DX: Z04.3 Encounter for examination and observation following other accident (principal); F03.90 Unspecified dementia, unspecified severity, without behavioral disturbance, psychotic disturbance, mood disturbance, and anxiety; I10 Essential (primary) hypertension; E78.5 Hyperlipidemia, unspecified; H35.3120 Nonexudative age-related macular degeneration, left eye, stage unspecified; H40.9 Unspecified glaucoma; N40.0 Benign prostatic hyperplasia without lower urinary tract symptoms; Z66 Do not resuscitate; Z86.14 Personal history of Methicillin resistant Staphylococcus aureus infection; Z79.82 Long term (current) use of aspirin; Z79.899 Other long term (current) drug therapy; Z96.1 Presence of intraocular lens; Z98.42 Cataract extraction status, left eye; Z98.41 Cataract extraction status, right eye; M16.0 Bilateral primary osteoarthritis of hip; W06.XXXA Fall from bed, initial encounter
CPT/HCPCS: 70450; 72125; 73502; 99284; A9270

== ENCOUNTER 2024-01-21 05:17 | Emergency (ER) | payer MEDICARE, SELFPAY ==
[2024-01-21] VITALS (8 sets, daily range): BP systolic 130–146; BP diastolic 61–86; PULSE 59–71; RESP 14–19; TEMP 36.6; O2SAT 99–100
--- NOTE | ~2024-01-21 | CT_ITS ---
EXAMINATION: CT brain wo con DATE: 01/21/2024 06:28 INDICATION: Status post fall. TECHNIQUE: Computed tomography (CT) of the head was performed without intravenous contrast. The dose- length product was 681.00 mGy-cm. Automated exposure control and iterative reconstruction technique w ere employed. COMPARISON: CT dated 12/24/2023 FINDINGS: Generalized atrophy. There are scattered moderate periventricular and subcortical white mat ter changes, most likely related to small vessel ischemic disease (microangiopathy). There is chronic opacification of the right maxillary and the ethmoid sinuses. No ventriculomegaly or midline shift. No depressed skull fractures. No acute intracranial hemorrhage, infarction, mass or mass effect. IMPRESSION: 1. No acute intracranial abnormality. 2: Chronic sinusitis. Reviewed, dictated and finalized at location B.
--- NOTE | ~2024-01-21 | CT_ITS ---
EXAMINATION: CT facial & cervical spine wo DATE: 01/21/2024 06:28 INDICATION: Status post fall. Right hematoma. TECHNIQUE: Computed tomography (CT) of the maxillofacial region and cervical spine was performed with out intravenous contrast. The dose-length product was 681.00 mGy-cm. COMPARISON: CT dated 12/24/2023 FINDINGS: CERVICAL SPINE/MAXILLOFACIAL CT: There is chronic mucosal thickening of the right maxillary and ethmoid sinuses there is sclerosis and destruction medial wall right maxillary sinus, consistent with chronic sinusitis. There is mild righ t periorbital soft tissue swelling. Rightward nasal septal deviation. Zygomatic arches are intact. No acute orbital fracture is seen. There is severe multilevel cervical spondylosis. Craniovertebral kelvin ction is normal. There is 3 mm retrolisthesis at C3-4 and to a lesser degree C4-5 and C5-6. There is mild chronic anterior wedging C7 and T1. There is interbody fusion at C3-4. There is carotid atherosc lerosis. There is levoscoliosis. IMPRESSION: 1. No acute abnormality of the facial bones or cervical spine. Reviewed, dictated and finalized at location B.
--- NOTE | 2024-01-21 05:59 | PC.NURSE ---
Patient taken to CT.
--- NOTE | 2024-01-21 09:11 | ED.FALL ---
HPI - Fall General Chief Complaint: Fall Stated Complaint: FALL, RT EYE SWELLING Time Seen by Provider: 01/21/24 09:08 Source: patient and family () Mode of arrival: EMS Limitations: dementia History of Present Illness HPI Narrative: Patient presents after an unwitnessed fall at the nursing where he resides. Patient has history dementia and is unable to recall the details of the event. He does not know where he is at right new and repetitively questioning his about their home. Patient denies any pain. Patient has right periorbital swelling and ecchymosis but is not complaining of any vision changes. 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 states when she got to the emergency department he did 1 episode of coughing and during that time said he had chest pain with the cough but she has not noticed he has coughed since and he is laying in Trendelenburg position. No coughing during exam and patient denies any cough or chest pain. Patient has Steri-Strips in his right hand reportedly from previous recent fall. states that there are bed padding/alarms to try to reduce falls. Related Data Home Medications Medication Instructions Recorded Confirmed PreserVision AREDS-2 1 cap PO DAILY 07/26/23 12/22/23 aspirin 81 mg tablet,delayed 81 mg PO DAILY 07/26/23 12/22/23 release brimonidine 0.2 %-timolol 0.5 % 1 drp ophthalmic (eye) HS 07/26/23 12/22/23 eye drops buspirone 5 mg tablet 10 mg PO TID 07/26/23 12/22/23 potassium chloride 20 mEq 20 meq PO DAILY 07/26/23 12/22/23 tablet,extended release(part/cryst) (Klor-Con M) tamsulosin 0.4 mg capsule 0.4 mg PO DAILY 07/26/23 12/22/23 divalproex 125 mg tablet,delayed 125 mg PO BID 12/22/23 12/22/23 release famotidine 20 mg tablet 20 mg PO BID 12/22/23 12/22/23 furosemide 40 mg tablet 40 mg PO DAILY 12/22/23 12/22/23 metoprolol tartrate 50 mg tablet 50 mg PO BID 06/20/24 06/20/24 trazodone 50 mg tablet 50 mg PO HS 12/22/23 12/22/23 Allergies Allergy/AdvReac Type Severity Reaction Status Date / Time No Known Allergies Allergy Verified 12/22/23 13:50 PMFSH Past Medical History Medical History Age-related macular degeneration, wet, left eye BPH (benign prostatic hyperplasia) Dementia Encephalopathy acute Essential hypertension Generalized anxiety disorder Glaucoma Hyperlipidemia MRSA (methicillin resistant Staphylococcus aureus) colonization Unspecified dementia, unspecified severity, with mood disturbance Surgical History Surgical History Status post cataract extraction of both eyes with insertion of intraocular lens Family History Family History Sibling Acute myocardial infarction Cerebrovascular accident Chronic obstructive pulmonary disease Mother Hypertension Acute myocardial infarction Sibling , 2021 Alzheimer dementia Social History Social History Social History: The patient lived at home with his until recent hospitalization at [facility] early July 2023. Code status: pt is DNR Surrogate decision maker: Smoking status: Never smoker Alcohol intake: never Substance use: never Do You Feel Safe in your Home?: Yes Lack of Transportation: No Lack of Food: Never True Current Housing: I Have Housing Concerned About Future Housing: No Difficulty Paying Gas/Electric Bills: No Difficulty Paying for Meds: No Currently Unemployed: No Education: Bachelor's Degree Difficulty w/ Childcare or Family Care: No Living arrangements: intermediate Additional living arrangements comments: [facility] Spiritual care concerns: No Exam Narrative: GENERAL: Well-appear
[2024-01-21] MEDS: ACETAMINOPHEN 500 MG TABLET 1000 MG PO (09:21)
--- NOTE | 2024-01-21 10:20 | PC.NURSE ---
Meal tray ordered for pt.
== END 2024-01-21 10:39 ==
LOC: ANHED 09:32
PROVIDERS: Emergency Provider Student in an Organized Health Care Education/Training Program; PCP Internal Medicine
DX: S00.11XA Contusion of right eyelid and periocular area, initial encounter (principal); H11.31 Conjunctival hemorrhage, right eye; F03.90 Unspecified dementia, unspecified severity, without behavioral disturbance, psychotic disturbance, mood disturbance, and anxiety; J32.9 Chronic sinusitis, unspecified; I10 Essential (primary) hypertension; E78.5 Hyperlipidemia, unspecified; H35.3220 Exudative age-related macular degeneration, left eye, stage unspecified; H40.9 Unspecified glaucoma; N40.0 Benign prostatic hyperplasia without lower urinary tract symptoms; F41.1 Generalized anxiety disorder; Z66 Do not resuscitate; Z86.14 Personal history of Methicillin resistant Staphylococcus aureus infection; Z96.1 Presence of intraocular lens; Z98.42 Cataract extraction status, left eye; Z98.41 Cataract extraction status, right eye; Z79.82 Long term (current) use of aspirin; Z79.899 Other long term (current) drug therapy; W19.XXXA Unspecified fall, initial encounter
CPT/HCPCS: 70450; 70486; 72125; 99284; A9270

== ENCOUNTER 2024-04-16 14:44 | Emergency (ER) | payer MEDICARE, SELFPAY ==
[2024-04-16] VITALS (16 sets, daily range): BP systolic 141–169; BP diastolic 67–82; PULSE 62–69; RESP 12–24; TEMP 36.6; O2SAT 98–100
--- NOTE | ~2024-04-16 | US_ITS ---
TESTICULAR ULTRASOUND (Doppler ultrasound interrogation techniques used as needed for this exam.) Ordering provider: Sarabjit Dockery MD History: . left testicle swelling . Comparison: None. FINDINGS: TESTICLES: Normal in size. The right measures 3.1x 2.4x 2.6 cm and the left measures 4.4x 2x 1.7 cm. Normal echogenicity bilaterally without mass lesion. Normal Doppler flow in the right and slightly i ncreased on the left. Multiple echogenic foci is seen in the right testicular. EPIDIDYMIDES: Normal in size. The right measures 0.8x 0.5x 0.8 cm and the left 1.3x 1.3x 1.6 cm. Norm al echogenicity bilaterally. Both demonstrate normal Doppler flow. The left is enlarged and hypervasc ular. HYDROCELE: Complex Large left. Small right. VARICOCELE: Possible borderline bilaterally. OTHER ABNORMALITY: None seen. IMPRESSION: Highly suggestive left epididymoorchitis with large complex hydrocele. Borderline bilateral varicocel e. Small right hydrocele Otherwise, normal testicular ultrasound. Reviewed, dictated and finalized at location A. IMPRESSION: Highly suggestive left epididymoorchitis with large complex hydrocele. Borderli ne bilateral varicocele. Small right hydrocele Otherwise, normal testicular ult rasound.
--- NOTE | 2024-04-16 15:00 | ED.GENADULT ---
HPI - General Adult General Chief complaint: Urogenital-Male Stated complaint: SWOLLEN TESTICLE Time Seen by Provider: 04/16/24 14:49 History of Present Illness HPI narrative: 88-year-old male presents emergency department for evaluation for left testicular swelling. Patient denies any pain or complaints. alf noted that the patient's left testicle was enlarged. Patient has no tenderness to palpation. Patient is demented at his typical baseline. Patient also typically wears hearing aids but he does not have them and patient is very hard of hearing Related Data Home Medications Medication Instructions Recorded Confirmed PreserVision AREDS-2 1 cap PO DAILY 07/26/23 12/22/23 aspirin 81 mg tablet,delayed 81 mg PO DAILY 07/26/23 12/22/23 release brimonidine 0.2 %-timolol 0.5 % 1 drp ophthalmic (eye) HS 07/26/23 12/22/23 eye drops buspirone 5 mg tablet 10 mg PO TID 07/26/23 12/22/23 potassium chloride 20 mEq 20 meq PO DAILY 07/26/23 12/22/23 tablet,extended release(part/cryst) (Klor-Con M) tamsulosin 0.4 mg capsule 0.4 mg PO DAILY 07/26/23 12/22/23 divalproex 125 mg tablet,delayed 125 mg PO BID 12/22/23 12/22/23 release famotidine 20 mg tablet 20 mg PO BID 12/22/23 12/22/23 furosemide 40 mg tablet 40 mg PO DAILY 12/22/23 12/22/23 metoprolol tartrate 50 mg tablet 50 mg PO BID 12/22/23 12/22/23 trazodone 50 mg tablet 50 mg PO HS 12/22/23 12/22/23 Allergies Allergy/AdvReac Type Severity Reaction Status Date / Time No Known Allergies Allergy Verified 04/16/24 16:25 Review of Systems Review of Systems: All systems reviewed & are unremarkable except as noted in HPI and below PMFSH Past Medical History Medical History Age-related macular degeneration, wet, left eye BPH (benign prostatic hyperplasia) Dementia Encephalopathy acute Essential hypertension Generalized anxiety disorder Glaucoma Hyperlipidemia MRSA (methicillin resistant Staphylococcus aureus) colonization Unspecified dementia, unspecified severity, with mood disturbance Surgical History Surgical History Status post cataract extraction of both eyes with insertion of intraocular lens Family History Family History Sibling Acute myocardial infarction Cerebrovascular accident Chronic obstructive pulmonary disease Mother Hypertension Acute myocardial infarction Sibling , 2021 Alzheimer dementia Social History Social History Social History: The patient lived at home with his until recent hospitalization at [facility] early July 2023. Code status: pt is DNR Surrogate decision maker: Smoking status: Never smoker Alcohol intake: never Substance use: never Do You Feel Safe in your Home?: Yes Lack of Transportation: No Lack of Food: Never True Current Housing: I Have Housing Concerned About Future Housing: No Difficulty Paying Gas/Electric Bills: No Difficulty Paying for Meds: No Currently Unemployed: No Education: Bachelor's Degree Difficulty w/ Childcare or Family Care: No Living arrangements: care home Additional living arrangements comments: [facility] Spiritual care concerns: No Exam Narrative: APPEARANCE: Well appearing, no pain, no distress, well-nourished. HEAD: normocephalic, atraumatic. EYES: PERRLA/EOMI, conjunctivae clear. NOSE: Normal no drainage EARS:TMS clear with good light reflex. THROAT: Pharynx clear, no exudate. NECK: Supple. No adenopathy, no masses. RESPIRATORY: Airway patent, respirations nonlabored. Clear to auscultation bilaterally, no rales, rhonchi, wheezing. CARDIOVASCULAR: Regular rate and rhythm without murmurs rubs or gallops. ABDOMINAL: Soft, nontender, nondistended, normal charli
[2024-04-16 16:22] LABS: Add Urine Microscopic? YES; Appearance Urine Turbid (Clear); Bacteria Urine 4+ /hpf; Bilirubin Urine Negative (Negative); Blood Urine 3+ (Negative); Color Urine Yellow (Yellow); Glucose Urine UA Negative (Negative); Ketones Urine Negative (Negative); Leukocyte Esterase Ur 3+ LEU/UL (Negative); Nitrate Urine Positive (Negative); Protein Urine 1+ mg/dL (Negative); RBC Urine >100 /hpf (0-2); Specific Grav Ur 1.013 (1.001-1.035); Squamous Epithelial Cell Urine None Seen /hpf (Few); Urobilinogen Urine 0.2 mg/dL (<2.0); WBC Urine >100 /hpf (0-3); pH Urine 5.5 (5.0-9.0)
[2024-04-16] MEDS: levoFLOXacin 500 MG TABLET PO (16:24)
[2024-04-16] MEDS: Please add drug allergy info to patient profile. 1 EACH XX (16:25)
[2024-04-16 16:27] LABS: Basophils Percent Auto 0.5 % (0.2-1.2); Eosinophils Absolute Auto 0.2 K/mm3 (0-0.3); Eosinophils Percent Auto 2.6 % (0-4.4); Hematocrit 37.7 % (42.0-52.0); Hemoglobin 12.4 g/dL (14.0-18.0); Immature Granulocyte Absolute 0.04 K/mm3 (0.00-0.031); Immature Granulocyte Percent A 0.5 % (0-0.5); Lymphocytes Absolute Auto 1.85 K/mm3 (0.9-3.2); Mean Corpuscular HGB Conc 32.9 g/dl (32-36); Mean Corpuscular Hemoglobin 29.7 pg (26-34); Mean Corpuscular Volume 90.2 fl (80-100); Mean Platelet Volume 9.6 fl (7.4-10.4); Monocytes Absolute Auto 0.8 K/mm3 (0.1-0.6); Monocytes Percent Auto 10.6 % (2.6-8.5); Neutrophils Absolute Auto 4.8 K/mm3 (1.3-6.7); Neutrophils Percent Auto 61.8 % (45.5-73.1); Platelet Count Result 276 k/mm3 (150-375); Red Blood Count 4.18 M/mm3 (4.6-6.20); Red Cell Distribution Width 12.7 % (11.5-14.5); White Blood Count 7.7 K/mm3 (4.5-10.0)
[2024-04-16 16:38] LABS: Alanine Aminotransferase 23 U/L (6-50); Albumin Level 3.5 g/dL (3.5-5.1); Alkaline Phosphatase 61 U/L (38-126); Anion Gap 7 mmol/L (4-12); Aspartate Amino Transferase 23 U/L (17-59); Bilirubin,Total 0.3 mg/dL (0.2-1.3); Blood Urea Nitrogen 30 mg/dL (9-20); Calcium 9.5 mg/dL (8.4-10.2); Carbon Dioxide 29 mmol/L (22-30); Chloride 103 mmol/L (98-107); Estimated Glomerular Filt Rate 48; Glucose 97 mg/dL (65-110); Sodium 139 mmol/L (137-145)
[2024-04-16 16:42] LABS: INR 1.1; Prothrombin Time 14.9 Seconds (11.1-14.7)
[2024-04-16 16:43] LABS: Partial Thromboplastin Time 33.3 Seconds (22.3-36.8)
== END 2024-04-16 17:50 ==
PROVIDERS: Emergency Provider Emergency Medicine; PCP Internal Medicine
DX: N45.3 Epididymo-orchitis (principal); N39.0 Urinary tract infection, site not specified; F03.93 Unspecified dementia, unspecified severity, with mood disturbance; I10 Essential (primary) hypertension; E78.5 Hyperlipidemia, unspecified; N40.0 Benign prostatic hyperplasia without lower urinary tract symptoms; H35.3220 Exudative age-related macular degeneration, left eye, stage unspecified; H40.9 Unspecified glaucoma; Z66 Do not resuscitate; Z86.14 Personal history of Methicillin resistant Staphylococcus aureus infection; Z98.42 Cataract extraction status, left eye; Z98.41 Cataract extraction status, right eye; Z96.1 Presence of intraocular lens; Z79.82 Long term (current) use of aspirin; Z79.899 Other long term (current) drug therapy
CPT/HCPCS: 36415; 76870; 80053; 81001; 85025; 85610; 85730; 87077; 87086; 87186; 93976; 99284; A9270

== ENCOUNTER 2024-05-13 11:21 | Emergency (ER) | payer MEDICARE, SELFPAY ==
[2024-05-13 11:24] VITALS: TEMP 36.4
[2024-05-13 11:35] VITALS: BP 144/54; PULSE 62; RESP 18; O2SAT 100
[2024-05-13 11:56] LABS: Basophils Percent Auto 0.5 % (0.2-1.2); Eosinophils Absolute Auto 0.3 K/mm3 (0-0.3); Eosinophils Percent Auto 4.8 % (0-4.4); Hematocrit 34.7 % (42.0-52.0); Hemoglobin 11.4 g/dL (14.0-18.0); Immature Granulocyte Absolute 0.02 K/mm3 (0.00-0.031); Immature Granulocyte Percent A 0.3 % (0-0.5); Lymphocytes Percent Auto 31.8 % (18.3-44.2); Mean Corpuscular HGB Conc 32.9 g/dl (32-36); Mean Corpuscular Hemoglobin 29.7 pg (26-34); Mean Corpuscular Volume 90.4 fl (80-100); Mean Platelet Volume 9.7 fl (7.4-10.4); Monocytes Absolute Auto 0.9 K/mm3 (0.1-0.6); Monocytes Percent Auto 12.9 % (2.6-8.5); Neutrophils Absolute Auto 3.3 K/mm3 (1.3-6.7); Neutrophils Percent Auto 49.7 % (45.5-73.1); Platelet Count Result 172 k/mm3 (150-375); Red Blood Count 3.84 M/mm3 (4.6-6.20); Red Cell Distribution Width 13.9 % (11.5-14.5); White Blood Count 6.6 K/mm3 (4.5-10.0)
--- NOTE | 2024-05-13 11:56 | ED_ITS ---
HPI - General Adult General Chief complaint: Extremity Problem,Nontraumatic Stated complaint: dvt Time Seen by Provider: 05/13/24 11:24 History of Present Illness HPI narrative: patient 88-year-old gentleman who presents emergency department with chief complaint of DVT to left right lower extremity. The patient is resident of local nursing facility had an outpatient ultrasound that showed a small focal DVT the patient complains of no chest pain no shortness of breath and was sent t o the emergency department for evaluation. Related Data Home Medications Medication Instructions Recorded Confirmed PreserVision AREDS-2 1 cap PO DAILY 07/26/23 12/22/23 aspirin 81 mg tablet,delayed 81 mg PO DAILY 07/26/23 12/22/23 release brimonidine 0.2 %-timolol 0.5 % 1 drp ophthalmic (eye) HS 07/26/23 12/22/23 eye drops buspirone 5 mg tablet 10 mg PO TID 07/26/23 12/22/23 potassium chloride 20 mEq 20 meq PO DAILY 07/26/23 12/22/23 tablet,extended release(part/cryst) (Klor-Con M) tamsulosin 0.4 mg capsule 0.4 mg PO DAILY 07/26/23 12/22/23 divalproex 125 mg tablet,delayed 125 mg PO BID 12/22/23 12/22/23 release famotidine 20 mg tablet 20 mg PO BID 12/22/23 12/22/23 furosemide 40 mg tablet 40 mg PO DAILY 12/22/23 12/22/23 metoprolol tartrate 50 mg tablet 50 mg PO BID 12/22/23 12/22/23 trazodone 50 mg tablet 50 mg PO HS 12/22/23 12/22/23 Allergies Allergy/AdvReac Type Severity Reaction Status Date / Time No Known Allergies Allergy Verified 04/16/24 16:25 Review of Systems Review of Systems: A 10 system review of systems was completed on the patient and is negative except for what is stated in the HPI. Nursing and ancillary documentation was reviewed. [facility] Past Medical History Medical History Age-related macular degeneration, wet, left eye BPH (benign prostatic hyperplasia) Dementia Encephalopathy acute Essential hypertension Generalized anxiety disorder Glaucoma Hyperlipidemia MRSA (methicillin resistant Staphylococcus aureus) colonization Unspecified dementia, unspecified severity, with mood disturbance Surgical History Surgical History Status post cataract extraction of both eyes with insertion of intraocular lens Family History Family History Sibling Acute myocardial infarction Cerebrovascular accident Chronic obstructive pulmonary disease Mother Hypertension Acute myocardial infarction Sibling , 2021 Alzheimer dementia Social History Social History Social History: The patient lived at home with his until recent hospitalization at [facility] early July 2023. Code status: pt is DNR Surrogate decision maker: Smoking status: Never smoker Alcohol intake: never Substance use: never Do You Feel Safe in your Home?: Yes Lack of Transportation: No Lack of Food: Never True Current Housing: I Have Housing Concerned About Future Housing: No Difficulty Paying Gas/Electric Bills: No Difficulty Paying for Meds: No Currently Unemployed: No Education: Bachelor's Degree Difficulty w/ Childcare or Family Care: No Living arrangements: [facility] Additional living arrangements comments: [facility] Spiritual care concerns: No Exam Narrative: GENERAL: Well-appearing, well-nourished, and in no acute distress. HEAD: Normocephalic, atraumatic. EYES: PERRLA and EOMI. ENT: Nares clear, no rhinorrhea or epistaxis. Mucous membranes moist. NECK: Supple. CHEST: Clear to auscultation. No respiratory distress. HEART: Regular rate and rhythm. No murmur heard. Normal peripheral pulses. ABDOMEN: Soft, nontender, nondistended, normal active bowel sounds. EXTREMITIES: Normal range of motion. No edema. SKIN: Warm, dry, no rash. NEURO: No focal deficits. Alert and oriented x3. PSYCH: Normal mood and affect. Course Vital Signs Vital signs: Vital Signs Temperature 36.4 C 05/13/24 11:24 Temperature 36.4 C 05/13/24 11:24 Pulse Rate 62 05/13/24 11:35 Respiratory Rate 18 05/13/24 11:35 Blood Pressure 144/54 H 05/13/24 11:35 Pulse Oximetry 100 05/13/24 11:35 Medical Decision Making MDM Narrative Medical decision making narrative: Differential diagnosis includes DVT the patient shows no signs of pulmonary embolism no signs of hemodynamic compromise and no real complaints this time the patient will be given 1.5 per kilos of Lovenox to cover for 24 hours so the facility can get started on the Eliquis Vital Signs Vital Signs: Vital Signs Temperature 36.4 C 05/13/24 11:24 Temperature 36.4 C 05/13/24 11:24 Pulse Rate 62 05/13/24 11:35 Respiratory Rate 18 05/13/24 11:35 Blood Pressure 144/54 H 05/13/24 11:35 Pulse Oximetry 100 05/13/24 11:35 Lab Data 05/13/24 11:51 05/13/24 11:51 Labs: Lab Results 05/13/24 Range/Units 11:51 WBC 6.6 (4.5-10.0) K/mm3 RBC 3.84 L (4.6-6.20) M/mm3 Hgb 11.4 L (14.0-18.0) g/dL Hct 34.7 L (42.0-52.0) % MCV 90.4 (80-100) fl MCH 29.7 (26-34) pg MCHC 32.9 (32-36) g/dl RDW 13.9 (11.5-14.5) % Plt Count 172 (150-375) k/mm3 MPV 9.7 (7.4-10.4) fl Immature Gran % (Auto) 0.3 (0-0.5) % Neut % (Auto) 49.7 (45.5-73.1) % Lymph % (Auto) 31.8 (18.3-44.2) % [place] % (Auto) 12.9 H (2.6-8.5) % Eos % (Auto) 4.8 H (0-4.4) % Baso % (Auto) 0.5 (0.2-1.2) % Lymph # (Auto) 2.10 (0.9-3.2) K/mm3 [place] # (Auto) 0.9 H (0.1-0.6) K/mm3 Eos # (Auto) 0.3 (0-0.3) K/mm3 Baso # (Auto) 0.0 (0.0-0.1) K/mm3 Abs Immat Gran (auto) 0.02 (0.00-0.031) K/mm3 Absolute Neuts (auto) 3.3 (1.3-6.7) K/mm3 Absolute Nucleated RBC 0.000 (0.0-0.012) K/mm3 Nucleated RBC % 0.0 (0.0-0.2) % Sodium 137 (137-145) mmol/L Potassium 4.1 (3.4-5.0) mmol/L Chloride 103 (98-107) mmol/L Carbon Dioxide 28 (22-30) mmol/L Anion Gap 6 (4-12) mmol/L BUN 23 H (9-20) mg/dL Creatinine 1.10 (0.7-1.3) mg/dL Estim Creat Clear Calc 43 ml/min Estimated GFR > 60 (59 - ) Glucose 81 (65-110) mg/dL Calcium 9.3 (8.4-10.2) mg/dL Total Bilirubin 0.3 (0.2-1.3) mg/dL AST 17 (17-59) U/L ALT 14 (6-50) U/L Alkaline Phosphatase 59 (38-126) U/L Total Protein 6.0 L (6.3-8.2) g/dL Albumin 3.4 L (3.5-5.1) g/dL Discharge Plan Discharge Clinical Impression: DVT (deep venous thrombosis) Patient Disposition: NH Longterm/Asst Living Condition: Stable Instructions: Antibiotic Form, Deep Vein Thrombosis (ED) Prescriptions: Trip Damico DVT-PE Treat 30D Start 5 mg (74 tabs) tablets,dose pack See Rx Instructions .ROUTE .COMPLEX Qty: 74 0RF Rx Instructions: orally per package directions No Action acetaminophen 500 mg capsule 1,000 mg PO Q6H PRN (Reason: pain) Qty: 20 0RF levofloxacin 500 mg tablet 500 mg PO DAILY 10 Days Qty: 10 0RF buspirone 5 mg tablet 10 mg PO TID Rx Instructions: 8AM-4PM-8PM aspirin 81 mg Tablet,Delayed Release (Dr/Ec) 81 mg PO DAILY potassium chloride [Klor-Con M20] 20 mEq tablet,ER particles/crystals 20 meq PO DAILY tamsulosin 0.4 mg capsule 0.4 mg PO DAILY brimonidine-timolol 0.2-0.5 % drops 1 drp ophthalmic (eye) HS PreserVision AREDS-2 1 cap PO DAILY furosemide 40 mg tablet 40 mg PO DAILY trazodone 50 mg Tablet 50 mg PO HS divalproex 125 mg tablet,delayed release (DR/EC) 125 mg PO BID metoprolol tartrate 50 mg tablet 50 mg PO BID famotidine 20 mg tablet 20 mg PO BID Follow-up/Referrals: Kyle,MD Maurice [Primary Care Provider] - Time of Disposition: 13:08
[2024-05-13 12:10] LABS: Alanine Aminotransferase 14 U/L (6-50); Albumin Level 3.4 g/dL (3.5-5.1); Alkaline Phosphatase 59 U/L (38-126); Anion Gap 6 mmol/L (4-12); Aspartate Amino Transferase 17 U/L (17-59); Bilirubin,Total 0.3 mg/dL (0.2-1.3); Blood Urea Nitrogen 23 mg/dL (9-20); Calcium 9.3 mg/dL (8.4-10.2); Carbon Dioxide 28 mmol/L (22-30); Chloride 103 mmol/L (98-107); Estimated CRCL calculation 43 ml/min; Estimated Glomerular Filt Rate > 60; Glucose 81 mg/dL (65-110); Potassium 4.1 mmol/L (3.4-5.0); Sodium 137 mmol/L (137-145)
--- NOTE | 2024-05-13 12:44 | PC.NURSE ---
reg diet lunch food tray ordered
[2024-05-13] MEDS: ENOXAPARIN 120 MG/0.8 ML SYRINGE SUB-Q (13:16)
--- NOTE | 2024-05-13 13:24 | PC.NURSE ---
[facility] driverAnton
[2024-05-13 13:26] VITALS: BP 126/63; PULSE 71; RESP 20; TEMP 36.6; O2SAT 99
== END 2024-05-13 14:23 ==
PROVIDERS: Emergency Provider Emergency Medicine; PCP Internal Medicine
DX: I82.401 Acute embolism and thrombosis of unspecified deep veins of right lower extremity (principal); I10 Essential (primary) hypertension; E78.5 Hyperlipidemia, unspecified; F03.90 Unspecified dementia, unspecified severity, without behavioral disturbance, psychotic disturbance, mood disturbance, and anxiety
CPT/HCPCS: 36415; 80053; 85025; 96372; 99283; J1650

== ENCOUNTER 2024-06-09 15:13 | Emergency (ER) | payer MEDICARE, SELFPAY ==
--- NOTE | ~2024-06-09 | US_ITS ---
EXAMINATION: US arterial ankle brachial ind DATE: 06/09/2024 17:37 INDICATION: Peripheral arterial disease. TECHNIQUE: Segmental pressures and plethysmographic and Doppler waveforms of the brachial and lower e xtremity arteries were obtained. COMPARISON: CTA 06/09/2024 FINDINGS: Right and left brachial artery pressures of 149 mm Hg and 165 mm Hg, respectively, are concordant (no rmal difference <= 30 mmHg). The right ankle-brachial index (JOSE FRANCISCO) could not be measured due to inability to cuff occlude the arter ies (normal >= 0.9-1.0). The right great toe-brachial index (TBI) is 0.77 (normal >= 0.65). Arterial Doppler waveforms are biphasic at the ankle. The left JOSE FRANCISCO could not be measured due to inability to cuff occlude the arteries. The left TBI is 0.9 6. Arterial Doppler waveforms are triphasic at the ankle. IMPRESSION: 1. No significant arterial occlusive disease. Reviewed, dictated and finalized at location A. O PRODUCTION ASSISTANT
--- NOTE | ~2024-06-09 | US_ITS ---
EXAMINATION: US arterial duplex LE RT DATE: 06/09/2024 17:36 INDICATION: Peripheral arterial disease. TECHNIQUE: Multiple grayscale and Doppler ultrasound images of the right lower limb arteries were obt ained. COMPARISON: CTA 06/09/2024. FINDINGS: A systolic velocity is 84 cm/s in common femoral artery, 39 cm/s in profunda femoral artery , 78 cm/s in proximal superficial femoral artery, 62 cm/s in mid superficial femoral artery, 83 cm/s in distal superficial femoral artery, 53 cm/s in popliteal artery, 43 cm/s in posterior tibial artery , 47 cm/s in anterior tibial artery, and 39 cm/s in dorsalis pedis. IMPRESSION: 1. No significant arterial occlusive disease. Reviewed, dictated and finalized at location A. VOLTAGE TECHNICIAN
--- NOTE | ~2024-06-09 | XR_ITS ---
XR chest 1V portable DATE: 06/09/2024 16:10 INDICATION: Cough for 3 weeks TECHNIQUE: Portable AP chest on 06/09/2024 at 1608 hours COMPARISON: 12/22/2023 AP and lateral chest FINDINGS: Cardiomegaly. Aortic unfolding. No hilar or mediastinal enlargement. Minimal infiltrate or atelectasis is suggested at the left lung base. The lungs otherwise appear lyric ar. No pleural effusion or pulmonary vascular congestion or pneumothorax. Osteopenia. IMPRESSION: Minimal infiltrate or atelectasis at the left lung base Reviewed, dictated and finalized at location A. DRESSER
--- NOTE | ~2024-06-09 | CT_ITS ---
EXAMINATION: CTA abd aorta runoff DATE: 06/09/2024 17:55 INDICATION: Peripheral arterial disease. TECHNIQUE: Computed tomographic angiography (CTA) of the abdominal, pelvis, and both lower extremitie s was performed with 150 mL Omnipaque-350 intravenous contrast. Automated exposure control and iterat bob reconstruction technique were employed. The dose-length product was 1056.74 mGy-cm. Maximum inten sity projection 3D-reconstructions of the arteries were created by the technologist on a separate wor kstation. COMPARISON: CT abdomen and pelvis 08/16/2023 FINDINGS: ABDOMINAL AORTA AND ITS BRANCHES: Aortic atherosclerosis is noted. There is no significant stenosis of the renal arteries or inferior m esenteric artery. PELVIC VASCULATURE: There is no significant stenosis of the common iliac arteries, internal iliac arteries, or external i liac arteries. RIGHT LOWER EXTREMITY VASCULATURE: There is no significant stenosis of common femoral artery, superficial femoral artery, popliteal albert ry, tibioperoneal trunk, anterior tibial artery, posterior tibial artery, or peroneal artery. There i s a short segment occlusion of the dorsalis pedis. LEFT LOWER EXTREMITY VASCULATURE: There is no significant stenosis of common femoral artery, profunda femoral artery, superficial femor al artery, popliteal artery, tibioperoneal trunk, anterior tibial artery, posterior tibial artery, or peroneal artery. ADDITIONAL FINDINGS: There is cortical thinning of the kidneys. The prostate is severely enlarged. There is diffuse bladde r wall thickening, likely secondary to chronic outlet obstruction. There is a left inguinal hernia co ntaining fat. There is diverticulosis of the colon without evidence of diverticulitis. The appendix i s normal. There are no dilated loops of bowel. There are no pathologically enlarged lymph nodes. Ther e is no free intraperitoneal fluid. There is severe lumbar spondylosis. IMPRESSION: 1. Short segment occlusion of right dorsalis pedis. Reviewed, dictated and finalized at location A. DING CONSTRUCTION TEACHER
[2024-06-09 15:24] VITALS: BP 134/76; PULSE 62; RESP 17; TEMP 36.6; O2SAT 99
--- NOTE | 2024-06-09 15:52 | ED_ITS ---
HPI - Extremity Problem General Chief complaint: Extremity Problem,Nontraumatic <Zora Salter MD - Last Filed: 06/09/24 19:44> Stated complaint: swollen RLE <Zora Salter MD - Last Filed: 06/09/24 19:44> Time Seen by Provider: 06/09/24 15:28 <Zora Salter MD - Last Filed: 06/09/24 19:44> Source: family (Spouse) and RN notes reviewed <Zora Salter MD - Last Filed: 06/09/24 19:44> Limitations: dementia <Zora Salter MD - Last Filed: 06/09/24 19:44> History of Present Illness HPI Narrative: Patient presents with concern for a swollen right lower extremity. Facility had noted that he had delayed capillary refill and that his foot was cool and discolored earlier with only a faint DP. agrees that it had looked worse while at the facility but now appears to be improving. He is c urrently being treated for a DVT in this extremity. jail documentation does list that he is on Eliquis 5 mg b.i.d. provides collateral information that he had previously seen Dr Quinones (spelling?), a vascular surgeon With [facility] 2 years ago after he had cellulitis and after this treatment it was determined that he had leaky varicose veins. At baseline he is alert and oriented x1 due to her Alzheimer dementia. also notes he has a cough for the past 3 weeks and they thought he either had pneumonia or fluid on his lungs although he had not received a chest x-ray but for this issue he was empirically prescribed doxycycline and has a few more doses to complete. <Zora Salter MD - Last Filed: 06/09/24 19:44> Related Data Home medications: Home Medications Medication Instructions Recorded Confirmed PreserVision AREDS-2 1 cap PO DAILY 07/26/23 12/22/23 aspirin 81 mg tablet,delayed 81 mg PO DAILY 07/26/23 12/22/23 release brimonidine 0.2 %-timolol 0.5 % 1 drp ophthalmic (eye) HS 07/26/23 12/22/23 eye drops buspirone 5 mg tablet 10 mg PO TID 07/26/23 12/22/23 potassium chloride 20 mEq 20 meq PO DAILY 07/26/23 12/22/23 tablet,extended release(part/cryst) (Klor-Con M) tamsulosin 0.4 mg capsule 0.4 mg PO DAILY 07/26/23 12/22/23 divalproex 125 mg tablet,delayed 125 mg PO BID 12/22/23 12/22/23 release famotidine 20 mg tablet 20 mg PO BID 12/22/23 12/22/23 furosemide 40 mg tablet 40 mg PO DAILY 12/22/23 12/22/23 metoprolol tartrate 50 mg tablet 50 mg PO BID 12/22/23 12/22/23 trazodone 50 mg tablet 50 mg PO HS 12/22/23 12/22/23 <Zora Salter MD - Last Filed: 06/09/24 19:44> Allergies/Adverse reactions: Allergies Allergy/AdvReac Type Severity Reaction Status Date / Time No Known Allergies Allergy Verified 06/09/24 15:33 <Zora Salter MD - Last Filed: 06/09/24 19:44> [facility] Past Medical History Medical History: Medical History Acute embolism and thrombosis of unspecified 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, wet, left eye BPH (benign prostatic hyperplasia) Dementia Encephalopathy acute Essential hypertension Generalized anxiety disorder Glaucoma Hyperlipidemia MRSA (methicillin resistant Staphylococcus aureus) colonization Unspecified dementia, unspecified severity, with mood disturbance <Zora Salter MD - Last Filed: 06/09/24 19:44> Surgical History Surgical History: Surgical History Status post cataract extraction of both eyes with insertion of intraocular lens <Zora Salter MD - Last Filed: 06/09/24 19:44> Family History Family History: Family History Sibling Acute myocardial infarction Cerebrovascular accident Chronic obstructive pulmonary disease Mother Hypertension Acute myocardial infarction Sibling , 2021 Alzheimer dementia <Zora Salter MD - Last Filed: 06/09/24 19:44> Social History Social History: Social History Social History: The patient lived at home with his until hospitalization at [facility] early July 2023. Code status: DNR per long-term documentation Surrogate decision maker: Smoking status: Former smoker Alcohol intake: never Substance use: never Do You Feel Safe in your Home?: Yes Lack of Transportation: No Lack of Food: Never True Current Housing: I Have Housing Concerned About Future Housing: No Difficulty Paying Gas/Electric Bills: No Difficulty Paying for Meds: No Currently Unemployed: No Education: Bachelor's Degree Difficulty w/ Childcare or Family Care: No Living arrangements: long-term Additional living arrangements comments: [facility] Occupation/Education: retired 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 HEAD: Normocephalic, atraumatic. EYES: Non injected, non icteric ENT: Nares clear, no rhinorrhea or epistaxis. NECK: Supple. CHEST: Non labored. No respiratory distress. HEART: Regular rate and rhythm. . ABDOMEN: Soft, nondistended. EXTREMITIES: 1+ R leg pedal edema. Difficult to palpate DP pulse however there is one faintly present on bedside Doppler. SKIN: Warm, dry. Mildly cool right lower extremity but not frankly more so than the left. NEURO: No focal deficits. Alert but not oriented <Zora Salter MD - Last Filed: 06/09/24 19:44> Course Course Emergency Course: Z2037: Patient was signed out to me pending results of imaging. CTA aorta with runoff showed a short segment occlusion of the right dorsalis PDS with collateral flow. TBI within expected limits. results were explained to the patient's as the patient has severe dementia and cannot meaningfully participate in the discussion. On exam the patient's foot is slightly discolor ed but has cap refill <2 secs and the previous physician was able to Doppler pulses. Patient will be discharged follow-up with their vascular surgeon. <Khurram Herrera MD - Last Filed: 06/09/24 20:41> Vital Signs Vital signs: Vital Signs Temperature 98 F 06/09/24 15:24 Pulse Rate 62 06/09/24 15:24 Respiratory Rate 17 06/09/24 15:24 Blood Pressure 134/76 06/09/24 15:24 Pulse Oximetry 99 06/09/24 15:24 Oxygen Delivery Room Air 06/09/24 15:24 Temperature 98 F 06/09/24 15:24 Pulse Rate 70 06/09/24 19:26 Respiratory Rate 17 06/09/24 19:26 Blood Pressure 141/87 H 06/09/24 19:26 Pulse Oximetry 98 06/09/24 19:26 Oxygen Delivery Room Air 06/09/24 19:26 <Zora Salter MD - Last Filed: 06/09/24 19:44> Vital Signs Temperature 98 F 06/09/24 15:24 Pulse Rate 62 06/09/24 15:24 Respiratory Rate 17 06/09/24 15:24 Blood Pressure 134/76 06/09/24 15:24 Pulse Oximetry 99 06/09/24 15:24 Oxygen Delivery Room Air 06/09/24 15:24 Temperature 98 F 06/09/24 15:24 Pulse Rate 70 06/09/24 19:26 Respiratory Rate 17 06/09/24 19:26 Blood Pressure 141/87 H 06/09/24 19:26 Pulse Oximetry 98 06/09/24 19:26 Oxygen Delivery Room Air 06/09/24 19:26 <Khurram Herrera MD - Last Filed: 06/09/24 20:41> MDM - Extremity (Nontraumatic) MDM Narrative Medical decision making narrative: Patient presents with right lower extremity edema. He is currently being treated for a DVT. In the emergency department they are afebrile with vital signs within normal limits. jail documentation does list that he is on Eliquis 5 mg b.i.d.. Normocytic anemia, stable from previous. Patient has undergone imaging but at this time it is the end of my shift we are pending interpretation by the radiologist. Patient signed out to oncoming ED attending. 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 <Zora Salter MD - Last Filed: 06/09/24 19:44> Lab results narrative: Patient has microscopic hematuria is likely due to trauma during straight catheterization. <Zora Salter MD - Last Filed: 06/09/24 19:44> Result diagrams: 06/09/24 16:20 06/09/24 16:20 <Zora Salter MD - Last Filed: 06/09/24 19:44> Labs: Lab Results 06/09/24 Range/Units 16:20 WBC 7.1 (4.5-10.0) K/mm3 RBC 4.04 L (4.6-6.20) M/mm3 Hgb 12.1 L (14.0-18.0) g/dL Hct 36.7 L (42.0-52.0) % MCV 90.8 (80-100) fl MCH 30.0 (26-34) pg MCHC 33.0 (32-36) g/dl RDW 14.1 (11.5-14.5) % Plt Count 220 (150-375) k/mm3 MPV 10.2 (7.4-10.4) fl Immature Gran % (Auto) 0.3 (0-0.5) % Neut % (Auto) 54.3 (45.5-73.1) % Lymph % (Auto) 31.3 (18.3-44.2) % [place] % (Auto) 8.6 H (2.6-8.5) % Eos % (Auto) 5.2 H (0-4.4) % Baso % (Auto) 0.3 (0.2-1.2) % Lymph # (Auto) 2.21 (0.9-3.2) K/mm3 [place] # (Auto) 0.6 (0.1-0.6) K/mm3 Eos # (Auto) 0.4 H (0-0.3) K/mm3 Baso # (Auto) 0.0 (0.0-0.1) K/mm3 Abs Immat Gran (auto) 0.02 (0.00-0.031) K/mm3 Absolute Neuts (auto) 3.8 (1.3-6.7) K/mm3 Absolute Nucleated RBC 0.000 (0.0-0.012) K/mm3 Nucleated RBC % 0.0 (0.0-0.2) % PT 16.9 H (11.1-14.7) Seconds INR 1.3 APTT 31.6 (22.3-36.8) Seconds Sodium 140 (137-145) mmol/L Potassium 3.4 (3.4-5.0) mmol/L Chloride 106 (98-107) mmol/L Carbon Dioxide 28 (22-30) mmol/L Anion Gap 6 (4-12) mmol/L BUN 33 H D (9-20) mg/dL Creatinine 1.00 (0.7-1.3) mg/dL Estim Creat Clear Calc Not Reportable Estimated GFR > 60 (59 - ) Glucose 111 H (65-110) mg/dL Calcium 9.2 (8.4-10.2) mg/dL Urine Color Yellow (Yellow) Urine Appearance Clear (Clear) Urine pH 5.5 (5.0-9.0) Ur Specific [place] 1.018 (1.001-1.035) Urine Protein Negative (Negative) mg/dL Urine Glucose (UA) Negative (Negative) mg/dL Urine Ketones Negative (Negative) mg/dL Ur Blood (Man) 2+ H (Negative) Urine Nitrate Negative (Negative) Urine Bilirubin Negative (Negative) Urine Urobilinogen 1.0 (<2.0) mg/dL Add Ur Microanalysis Reviewed Leukocyte Esterase Rfl Trace H (Negative) AALIYAH/UL Urine RBC 51-100 H (0-2) /hpf Urine WBC 0-5 (0-3) /hpf Ur Squamous Epith Cells None seen (Few) /hpf Urine Bacteria None seen /hpf Urine Casts 0-2 Influenza A (RT-PCR) Negative (Negative) Influenza B (RT-PCR) Negative (Negative) RSV (RT-PCR) Negative (Negative) SARS-CoV-2 RNA (RT-PCR) Negative (Negative) <Zora Salter MD - Last Filed: 06/09/24 19:44> Lab Results 06/09/24 Range/Units 16:20 WBC 7.1 (4.5-10.0) K/mm3 RBC 4.04 L (4.6-6.20) M/mm3 Hgb 12.1 L (14.0-18.0) g/dL Hct 36.7 L (42.0-52.0) % MCV 90.8 (80-100) fl MCH 30.0 (26-34) pg MCHC 33.0 (32-36) g/dl RDW 14.1 (11.5-14.5) % Plt Count 220 (150-375) k/mm3 MPV 10.2 (7.4-10.4) fl Immature Gran % (Auto) 0.3 (0-0.5) % Neut % (Auto) 54.3 (45.5-73.1) % Lymph % (Auto) 31.3 (18.3-44.2) % [place] % (Auto) 8.6 H (2.6-8.5) % Eos % (Auto) 5.2 H (0-4.4) % Baso % (Auto) 0.3 (0.2-1.2) % Lymph # (Auto) 2.21 (0.9-3.2) K/mm3 [place] # (Auto) 0.6 (0.1-0.6) K/mm3 Eos # (Auto) 0.4 H (0-0.3) K/mm3 Baso # (Auto) 0.0 (0.0-0.1) K/mm3 Abs Immat Gran (auto) 0.02 (0.00-0.031) K/mm3 Absolute Neuts (auto) 3.8 (1.3-6.7) K/mm3 Absolute Nucleated RBC 0.000 (0.0-0.012) K/mm3 Nucleated RBC % 0.0 (0.0-0.2) % PT 16.9 H (11.1-14.7) Seconds INR 1.3 APTT 31.6 (22.3-36.8) Seconds Sodium 140 (137-145) mmol/L Potassium 3.4 (3.4-5.0) mmol/L Chloride 106 (98-107) mmol/L Carbon Dioxide 28 (22-30) mmol/L Anion Gap 6 (4-12) mmol/L BUN 33 H D (9-20) mg/dL Creatinine 1.00 (0.7-1.3) mg/dL Estim Creat Clear Calc Not Reportable Estimated GFR > 60 (59 - ) Glucose 111 H (65-110) mg/dL Calcium 9.2 (8.4-10.2) mg/dL Urine Color Yellow (Yellow) Urine Appearance Clear (Clear) Urine pH 5.5 (5.0-9.0) Ur Specific [place] 1.018 (1.001-1.035) Urine Protein Negative (Negative) mg/dL Urine Glucose (UA) Negative (Negative) mg/dL Urine Ketones Negative (Negative) mg/dL Ur Blood (Man) 2+ H (Negative) Urine Nitrate Negative (Negative) Urine Bilirubin Negative (Negative) Urine Urobilinogen 1.0 (<2.0) mg/dL Add Ur Microanalysis Reviewed Leukocyte Esterase Rfl Trace H (Negative) AALIYAH/UL Urine RBC 51-100 H (0-2) /hpf Urine WBC 0-5 (0-3) /hpf Ur Squamous Epith Cells None seen (Few) /hpf Urine Bacteria None seen /hpf Urine Casts 0-2 Influenza A (RT-PCR) Negative (Negative) Influenza B (RT-PCR) Negative (Negative) RSV (RT-PCR) Negative (Negative) SARS-CoV-2 RNA (RT-PCR) Negative (Negative) <Khurram Herrera MD - Last Filed: 06/09/24 20:41> Discharge Plan Discharge Clinical Impression: Swelling of right lower extremity, Normocytic anemia, Microscopic hematuria <Zora Salter MD - Last Filed: 06/09/24 19:44> Patient Disposition: [facility]/Asst Living <Zora Salter MD - Last Filed: 06/09/24 19:44> Condition: Stable <Zora Salter MD - Last Filed: 06/09/24 19:44> Instructions: Antibiotic Form, Leg Edema (ED), Anemia (ED) <Zora Salter MD - Last Filed: 06/09/24 19:44> Additional Instructions: Patient did have some a blood in his urine however it is bleed this was likely due to some minor trauma during straight catheterization. Continue taking your medications as prescribed. Follow-up with your vascular surgeon Dr Quinones. You are being provided a disc with your images you can take with you for this appointment. <Zora Salter MD - Last Filed: 06/09/24 19:44> Prescriptions: No Action acetaminophen 500 mg capsule 1,000 mg PO Q6H PRN (Reason: pain) Qty: 20 0RF levofloxacin 500 mg tablet 500 mg PO DAILY 10 Days Qty: 10 0RF buspirone 5 mg tablet 10 mg PO TID Rx Instructions: 8AM-4PM-8PM aspirin 81 mg Tablet,Delayed Release (Dr/Ec) 81 mg PO DAILY potassium chloride [Klor-Con M20] 20 mEq tablet,ER particles/crystals 20 meq PO DAILY tamsulosin 0.4 mg capsule 0.4 mg PO DAILY brimonidine-timolol 0.2-0.5 % drops 1 drp ophthalmic (eye) HS PreserVision AREDS-2 1 cap PO DAILY furosemide 40 mg tablet 40 mg PO DAILY trazodone 50 mg Tablet 50 mg PO HS divalproex 125 mg tablet,delayed release (DR/EC) 125 mg PO BID metoprolol tartrate 50 mg tablet 50 mg PO BID famotidine 20 mg tablet 20 mg PO BID Eliquis DVT-PE Treat 30D Start 5 mg (74 tabs) tablets,dose pack See Rx Instructions .ROUTE .COMPLEX Qty: 74 0RF Rx Instructions: orally per package directions <Zora Salter MD - Last Filed: 06/09/24 19:44> Follow-up/Referrals: Kyle,MD Maurice [Primary Care Provider] - Tulio Quinones MD [Physician] - ((vascular surgery)) <Zora Salter MD - Last Filed: 06/09/24 19:44> Stand Alone Forms: [facility] Discharge <Zora Salter MD - Last Filed: 06/09/24 19:44>
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
[2024-06-09 16:30] LABS: Basophils Percent Auto 0.3 % (0.2-1.2); Eosinophils Absolute Auto 0.4 K/mm3 (0-0.3); Eosinophils Percent Auto 5.2 % (0-4.4); Hematocrit 36.7 % (42.0-52.0); Hemoglobin 12.1 g/dL (14.0-18.0); Immature Granulocyte Absolute 0.02 K/mm3 (0.00-0.031); Immature Granulocyte Percent A 0.3 % (0-0.5); Lymphocytes Absolute Auto 2.21 K/mm3 (0.9-3.2); Lymphocytes Percent Auto 31.3 % (18.3-44.2); Mean Corpuscular Volume 90.8 fl (80-100); Mean Platelet Volume 10.2 fl (7.4-10.4); Monocytes Absolute Auto 0.6 K/mm3 (0.1-0.6); Monocytes Percent Auto 8.6 % (2.6-8.5); Neutrophils Absolute Auto 3.8 K/mm3 (1.3-6.7); Neutrophils Percent Auto 54.3 % (45.5-73.1); Platelet Count Result 220 k/mm3 (150-375); Red Blood Count 4.04 M/mm3 (4.6-6.20); Red Cell Distribution Width 14.1 % (11.5-14.5); White Blood Count 7.1 K/mm3 (4.5-10.0)
[2024-06-09 16:41] LABS: Anion Gap 6 mmol/L (4-12); Blood Urea Nitrogen 33 mg/dL (9-20); Calcium 9.2 mg/dL (8.4-10.2); Carbon Dioxide 28 mmol/L (22-30); Chloride 106 mmol/L (98-107); Estimated Glomerular Filt Rate > 60; Glucose 111 mg/dL (65-110); Potassium 3.4 mmol/L (3.4-5.0); Sodium 140 mmol/L (137-145)
[2024-06-09 16:42] LABS: Add Urine Microscopic? YES; Appearance Urine Clear (Clear); Bacteria Urine None Seen /hpf; Bilirubin Urine Negative (Negative); Blood Urine 2+ (Negative); Color Urine Yellow (Yellow); Glucose Urine UA Negative (Negative); Ketones Urine Negative (Negative); Leukocyte Esterase Ur Trace LEU/UL (Negative); Need Manual Microscopic Reviewed; Nitrate Urine Negative (Negative); Non Pathogenic Casts 0-2; Protein Urine Negative (Negative); RBC Urine 51-100 /hpf (0-2); Specific Grav Ur 1.018 (1.001-1.035); Squamous Epithelial Cell Urine None Seen /hpf (Few); WBC Urine 0-5 /hpf (0-3); pH Urine 5.5 (5.0-9.0)
--- NOTE | 2024-06-09 16:42 | PC.NURSE ---
Pt taken to ultrasound by cryptographic technician via stretcher with at bedside.
[2024-06-09 16:43] LABS: INR 1.3; Partial Thromboplastin Time 31.6 Seconds (22.3-36.8); Prothrombin Time 16.9 Seconds (11.1-14.7)
[2024-06-09 17:07] LABS: Influenza A QL RT-PCR Negative (Negative); Influenza B QL RT-PCR Negative (Negative); RSV RNA, RT-PCR Negative (Negative); SARS-CoV-2 RNA PCR Negative (Negative)
--- NOTE | 2024-06-09 17:57 | PC.NURSE ---
Dietary called to order meal tray for pt. per Md Salter verbal order.
[2024-06-09 18:01] VITALS: PULSE 68; RESP 16; O2SAT 100
--- NOTE | 2024-06-09 18:40 | PC.NURSE ---
Meal tray brought to bedside and set up for pt. Pt. placed in high fowlers prior to eating. at bedside, helping pt. with meal. No additional requests at this time.
[2024-06-09 19:26] VITALS: BP 141/87; PULSE 70; RESP 17; O2SAT 98
[2024-06-09 21:06] VITALS: BP 174/98; PULSE 76; RESP 16; O2SAT 96
[2024-06-09 23:48] VITALS: BP 150/74; PULSE 72; RESP 16; O2SAT 98
== END 2024-06-10 ==
PROVIDERS: Emergency Provider Student in an Organized Health Care Education/Training Program; PCP Internal Medicine
DX: R22.41 Localized swelling, mass and lump, right lower limb (principal); D64.9 Anemia, unspecified; R31.29 Other microscopic hematuria; I70.202 Unspecified atherosclerosis of native arteries of extremities, left leg; I82.401 Acute embolism and thrombosis of unspecified deep veins of right lower extremity; G30.9 Alzheimer's disease, unspecified; F02.80 Dementia in other diseases classified elsewhere, unspecified severity, without behavioral disturbance, psychotic disturbance, mood disturbance, and anxiety; I10 Essential (primary) hypertension; E78.5 Hyperlipidemia, unspecified; H35.3220 Exudative age-related macular degeneration, left eye, stage unspecified; N40.0 Benign prostatic hyperplasia without lower urinary tract symptoms; F41.1 Generalized anxiety disorder; Z66 Do not resuscitate; Z86.14 Personal history of Methicillin resistant Staphylococcus aureus infection; Z96.1 Presence of intraocular lens; Z98.42 Cataract extraction status, left eye; Z98.41 Cataract extraction status, right eye; Z79.82 Long term (current) use of aspirin; Z79.899 Other long term (current) drug therapy; Z79.01 Long term (current) use of anticoagulants; Z20.822 Contact with and (suspected) exposure to COVID-19
CPT/HCPCS: 36415; 71045; 75635; 80048; 81001; 85025; 85610; 85730; 87637; 93922; 93926; 99284; Q9967